=== PATIENT | female | born 1945 | race Caucasian/White ===

== ENCOUNTER 2016-09-01 10:25 | Inpatient (IN) ==
[2016-09-01] MEDS ORDERED: NS 1,000 ML IV ONE (10:43)
[2016-09-01 11:08] LABS: MANUAL DIFF NEEDED? NO
[2016-09-01 11:12] LABS: BASO% 0.1 % (0.0-0.8); EOS# 0.11 X1000 (0.0-0.7); EOS% 1.3 % (0.0-10.0); HEMATOCRIT 31.3 % (37.0-47.0); HEMOGLOBIN 9.5 g/dL (12.0-16.0); IMM GRAN# 0.02 X1000 (0.0-0.04); IMM GRAN% 0.2 % (0.0-0.5); LYMPH# 0.57 X1000 (1.2-3.4); LYMPH% 6.6 % (20.5-51.1); MCH 25.6 PG (27-31); MCHC 30.4 g/dL (33-37); MCV 84.4 FL (81-99); MONO# 0.27 X1000 (0.11-0.59); MONO% 3.1 % (1.7-9.3); MPV 9.1 FL (7.4-10.4); NEUT% 88.7 % (42.2-75.2); PLT 290 X1000 (130-400); RBC 3.71 XMIL (4.2-5.4)
[2016-09-01 11:21] LABS: BE 1.9 mmoll (-3.0-3.0); BLOOD TYPE ARTERIAL; DRAW SITE R RADIAL; METHB 1.1 % (0.0-1.5); O2(CT) 12.2 mL/dL (15.0-23.0); PCO2(98.6) 41 mmHg (35-45); PO2(98.6) 71 mmHg (60-100); SAMPLE BLOOD; SAO2 96.9 % (95.0-100.0); THB 9.2 g/dL (11.5-17.4); pH(98.6) 7.42 (7.35-7.45)
[2016-09-01 11:23] LABS: ALLEN TEST YES; MODALITY CANNULA
--- NOTE | 2016-09-01 11:27 | PROVIDER DOCUMENTATION ---
HPI-General Adult - General Chief Complaint: Weakness Stated Complaint: weakness Time Seen by Provider: 09/01/16 10:34 Source: patient Allergies/Adverse Reactions: Patient Allergies Allergy/AdvReac Type Severity Reaction Status Date / Time Sulfa (Sulfonamide Allergy RASH Verified 09/01/16 10:27 Antibiotics) sulfamethoxazole Allergy RASH Verified 09/01/16 10:27 [From Bactrim] trimethoprim [From Bactrim] Allergy RASH Verified 09/01/16 10:27 Home Medications: Clopidogrel [Plavix] 75 mg PO DAILY 10/10/12 Furosemide [Lasix] 40 mg PO DAILY 10/10/12 Levothyroxine Sodium [Levoxyl] 150 mcg PO DAILY 10/10/12 Alprazolam [Xanax] 0.5 mg PO QHS 01/31/15 BENAZEpril [Lotensin] 40 mg PO HS 03/31/15 Carvedilol [Coreg] 25 mg PO BID 09/30/15 Metformin [Glucophage] 500 mg PO BID CC 09/30/15 Allopurinol 100 mg PO DAILY 09/01/16 Clonidine Patch [[id number]] 1 each TD DIRECTED 09/01/16 Clonidine [Catapres] 0.1 mg PO DAILY PRN 09/01/16 Pantoprazole [Protonix] 40 mg PO DAILY 09/01/16 - History of Present Illness -Gen Adult Nature of Presenting Problems: Reports to er by ems with cc of increasing weakness x 72 hours. EMS reports pt has had shaking chills,fever, for 72 hours. Pt reports left sided chest pain on arrival. Pt reports is being treated for gout. Reports was unable to get out of bed this morning and normally is ambulatory. Denies sob,cough,diarrhea. Location of Pain/Injury: reports: generalized Quality of Pain: reports: none Severity: reports: moderate Onset/Duration: reports: 3 days ago Timing: reports: still present, getting worse Similar Symptoms Previously?: No Recently seen or treated by another doctor?: Yes Review of Systems - Adult - REVIEW OF SYSTEMS - ADULT Constitutional: reports: chills, fever, fatique. denies: night sweats, weight gain, weight loss Eyes: reports: no symptoms reported Ears, Nose, Mouth & Throat: denies: ear pain, sinus problem, throat pain Cardiovascular: reports: chest pain. denies: irregular heart rate, orthopnea, syncope Respiratory: reports: no symptoms reported Gastrointestinal: reports: no symptoms reported Genitourinary: reports: no symptoms reported Musculoskeletal: reports: muscle weakness. denies: frequent leg cramps, joint pain, joint swelling, neck pain Integumentary: reports: no symptoms reported Neurological: reports: no symptoms reported Psychiatric: reports: no symptoms reported Endocrine: reports: no symptoms reported Hematologic/Lymphatic: reports: no symptoms reported Allergic/Immunologic: reports: no symptoms reported All Other Systems: Reviewed and Negative Past History - Adult - PAST MEDICAL HISTORY-ADULT Review of Records: reports: Nursing Assessment Review Major Childhood Illnesses: reports: denies history Cardiovascular: reports: A-Fib, CAD, HTN, [place] Musculoskeletal: reports: arthritis Endocrine/Immune: reports: Diabetes, thyroid disorder - PRIOR SURGERIES/PROCEDURES Surgical/Procedure History: reports: pacemaker, appendectomy, cholecystectomy - IMMUNIZATION STATUS Childhood Immunizations: See Nurse Assessment Flu Vaccine: See Nurse Assessment - SOCIAL HISTORY Smoking: denies Substance Use: none/never Physical Exam-General - PHYSICAL EXAM-ADULT Initial Vital Signs Reviewed: Yes - CONSTITUTIONAL General Appearance: alert, lethargic. negative: appears well (ill appearing) - EYES Eyes: PERRL/EOMI - HEAD, EARS, NOSE, MOUTH & THROAT HENMT: normocephalic/atraumatic, moist mucous membranes, normal ENT inspection, TMs normal, pharynx normal - NECK Neck: non-tender, full range of motion, supple, normal inspection - RESPIRATORY Respiratory: chest non-tender, lungs clear, normal breath sounds, no pleuratic chest pain, no respiratory distress, no accessory muscle use - CARDIOVASCULAR Cardiovascular: normal peripheral pulses, regular rate, rhythm, no edema, no gallop, no JVD, no murmur - GASTROINTESTINAL (ABDOMEN) Abdominal Exam: normal bowel sounds, non tender, soft, no organomegaly, no pulsatile mass, other (healed surgical scars) - MUSCULOSKELETAL Extremity: normal range of motion, non-tender, swelling (bilateral hands moderate swelling) Peripheral Pulses: radial (R): 2+, radial (L): 2+, dorsalis-pedis (R): 2+, dorsalis-pedis (L): 2+ - SKIN Integumentary: normal color, normal turgor, warm - NEUROLOGIC Neurologic: caseworker protective services II-XII nml as tested, grossly normal, no motor/sensory deficits - PSYCHIATRIC Psych/Mental Status: normal mood/affect, normal thought content, normal thought process, oriented x 3 Progress - PLAN OF CARE/RESULTS Progress/Plan/Lab Results: Orders Category Date Time Status Cardiac Monitoring DIRECTED Care 09/01/16 10:44 Active Oxygen Therapy- ED Nursing DIRECTED Care 09/01/16 10:44 Active Saline Loc NOW Care 09/01/16 10:44 Active CHEST-PORTABLE [RAD] Stat Exams 09/01/16 10:43 Taken ABG [RESP] Routine Lab 09/01/16 11:07 Completed BLOOD CULTURE [BLDCUL] Stat Lab 09/01/16 10:43 Ordered CBC WITH ELECTRONIC DIFF [HEME] Stat Lab 09/01/16 10:55 Completed CK PROFILE [SP CHEM] Stat Lab 09/01/16 10:55 Received COMPREHENSIVE METABOLIC PANEL [CHEM] Stat Lab 09/01/16 10:55 Received MAGNESIUM [CHEM] Stat Lab 09/01/16 10:55 Received PRO B-NATRIURETIC PEPTIDE Stat Lab 09/01/16 10:[address] Received [address]IME WITH INR PL [COAG] Stat Lab 09/01/16 10:[address] [COAG] Stat Lab 09/01/16 10:55 Received TROPONIN T Stat Lab 09/01/16 10:55 Received URIC ACID [CHEM] Stat Lab 09/01/16 10:[address] [URINALYSIS] Stat Lab 09/01/16 10:43 Ordered 0.9% Sodium Chloride Inj [Ns] 1,000 ml Med 09/01/16 10:43 Active IV 999 mls/hr EKG [EKG] Stat Ther 09/01/16 10:44 Ordered Vital Signs - 24 hr 09/01/16 10:36 Pulse Rate 72 Respiratory 23 Rate Blood Pressure 88/48 O2 Sat by Pulse 95 Oximetry Laboratory Tests 09/01/16 09/01/16 09/01/16 10:55 10:55 10:55 WBC RBC Hgb Hct MCV MCH MCHC RDW Std Deviation Plt Count MPV Immature Gran % (Auto) Neut % (Auto) Lymph % (Auto) [place] % (Auto) Eos % (Auto) Baso % (Auto) Immature Gran # (Auto) Neut # (Auto) Lymph # (Auto) [place] # (Auto) Eos # (Auto) Baso # (Auto) PT INR APTT (Factor Assay) Specimen Type Sample Site pH pCO2 pO2 HCO3 Base Excess Oxyhemoglobin ABG O2 Sat (Calculated) ABG O2 Saturation ABG Carboxyhemoglobin ABG Methemoglobin Ilir Test A-a O2 Difference Total Hemoglobin Lactate Liter Flow Blood Gas Modality FiO2 % Sodium 136 Potassium 4.3 Chloride 100 Carbon Dioxide 27 Anion Gap 10 BUN 30 H Creatinine 1.5 H Estimated GFR/1.73 m2 34 BUN/Creatinine Ratio 20 Glucose 147 H Calculated Osmolality 281 Uric Acid Calcium 8.5 L Magnesium 2.0 Total Bilirubin 0.30 AST 20 ALT 12 Alkaline Phosphatase 61 Creatine Kinase 239 H Creatine Kinase Index 1.0 CK-MB (CK-2) 2.39 Troponin T < 0.010 Cvp-[id number]-Bqccbbnchya Pept 2607 H Total Protein 6.1 L Albumin 3.3 L Globulin 3.0 Albumin/Globulin Ratio 1.0 Urine Source Urine Color Urine Clarity Urine pH Ur Specific [place] Urine Protein Urine Ketones Urine Blood Urine Nitrite Urine Bilirubin Urine Urobilinogen Urine Microscopic RBC Urine WBC Urine Microscopic WBC Ur Epithelial Cells Urine Bacteria Urine Glucose 09/01/16 09/01/16 09/01/16 10:55 10:55 10:55 WBC 8.64 RBC 3.71 L Hgb 9.5 L Hct 31.3 L MCV 84.4 MCH 25.6 L MCHC 30.4 L RDW Std Deviation 14.9 H Plt Count 290 MPV 9.1 Immature Gran % (Auto) 0.2 Neut % (Auto) 88.7 H Lymph % (Auto) 6.6 L [place] % (Auto) 3.1 Eos % (Auto) 1.3 Baso % (Auto) 0.1 Immature Gran # (Auto) 0.02 Neut # (Auto) 7.66 H Lymph # (Auto) 0.57 L [place] # (Auto) 0.27 Eos # (Auto) 0.11 Baso # (Auto) 0.01 PT 16.9 H INR 1.35 H APTT (Factor Assay) 40.7 Specimen Type Sample Site pH pCO2 pO2 HCO3 Base Excess Oxyhemoglobin ABG O2 Sat (Calculated) ABG O2 Saturation ABG Carboxyhemoglobin ABG Methemoglobin Ilir Test A-a O2 Difference Total Hemoglobin Lactate Liter Flow Blood Gas Modality FiO2 % Sodium Potassium Chloride Carbon Dioxide Anion Gap BUN Creatinine Estimated GFR/1.73 m2 BUN/Creatinine Ratio Glucose Calculated Osmolality Uric Acid 5.6 Calcium Magnesium Total Bilirubin AST ALT Alkaline Phosphatase Creatine Kinase Creatine Kinase Index CK-MB (CK-2) Troponin T Csp-V-Swkmyuoruwz Pept Total Protein Albumin Globulin Albumin/Globulin Ratio Urine Source Urine Color Urine Clarity Urine pH Ur Specific [place] Urine Protein Urine Ketones Urine Blood Urine Nitrite Urine Bilirubin Urine Urobilinogen Urine Microscopic RBC Urine WBC Urine Microscopic WBC Ur Epithelial Cells Urine Bacteria Urine Glucose 09/01/16 09/01/16 11:07 12:26 WBC RBC Hgb Hct MCV MCH MCHC RDW Std Deviation Plt Count MPV Immature Gran % (Auto) Neut % (Auto) Lymph % (Auto) [place] % (Auto) Eos % (Auto) Baso % (Auto) Immature Gran # (Auto) Neut # (Auto) Lymph # (Auto) [place] # (Auto) Eos # (Auto) Baso # (Auto) PT INR APTT (Factor Assay) Specimen Type ARTERIAL Sample Site R RADIAL pH 7.42 pCO2 41 pO2 71 HCO3 26.4 H Base Excess 1.9 Oxyhemoglobin 93.5 L ABG O2 Sat (Calculated) 12.2 L ABG O2 Saturation 96.9 ABG Carboxyhemoglobin 2.40 ABG Methemoglobin 1.1 Ilir Test YES A-a O2 Difference 77.0 Total Hemoglobin 9.2 L Lactate 1.80 Liter Flow 2.0 Blood Gas Modality CAN[place]ULA FiO2 % 28.0 Sodium Potassium Chloride Carbon Dioxide Anion Gap BUN Creatinine Estimated GFR/1.73 m2 BUN/Creatinine Ratio Glucose Calculated Osmolality Uric Acid Calcium Magnesium Total Bilirubin AST ALT Alkaline Phosphatase Creatine Kinase Creatine Kinase Index CK-MB (CK-2) Troponin T [id number]-[id number]-Tcelmpdkfls Pept Total Protein Albumin Globulin Albumin/Globulin Ratio Urine Source CATH Urine Color YELLOW Urine Clarity SL. CLOUDY A Urine pH 7.0 Ur Specific [place] 1.000 Urine Protein TRACE A Urine Ketones NEGATIVE Urine Blood 2+ A Urine Nitrite NEGATIVE Urine Bilirubin NEGATIVE Urine Urobilinogen 1+(1 mg/dL) Urine Microscopic RBC <10 Urine WBC 1+ A Urine Microscopic WBC <10 Ur Epithelial Cells <10 Urine Bacteria 4+ Urine Glucose NEGATIVE - EKG 1 Time of EKG reading by physician:: 11:06 EKG Read and Signed by:: Debora Khan EKG Interpretation (*Must complete 3 of following elements*): Abnormal (per v5/v6 T wave inversions are new compared to old EKG) Rate: 70 Rhythm: atrial paced rhtym with prolonged AV [place]: left QRS: RBB - CONSULTS/PCP/HOSPITALIST Notification #1 *Consult/PCP/Hospitalist*: Time Discussed: 12:55 Consult Disposition: Admit Departure - Departure Time of Disposition Order: 12:55 DIAGNOSIS: Weakness CHF exacerbation Qualifiers: Congestive heart failure type: unspecified congestive heart failure type Qualified Code(s): I50.9 - Heart failure, unspecified Disposition: ADMITTED INPATIENT 09 Certified Medical Emergency: Emergent Condition: Stable Attestation - Scribe Verification/Attestation Scribe:: Anita Winn Acting as Scribe for:: Debora Khan Scribe documention review:: This chart was documented by a scribe and accurately reflects the service the provider performed and the decisions made by the provider.
[2016-09-01 11:29] LABS: ALBUMIN 3.3 g/dL (3.5-5.0); CALCIUM 8.5 mg/dL (8.8-10.2); POTASSIUM 4.3 mmol/L (3.5-5.1); TOTAL BILIRUBIN 0.3 mg/dL (0.20-1.00); TOTAL PROTEIN 6.1 g/dL (6.3-8.3)
[2016-09-01 11:30] LABS: INR 1.35 (0.86-1.15); PROTIME 16.9 Seconds (12.1-15.5)
[2016-09-01 11:31] LABS: PTT PL 40.7 Seconds (22.6-43.9)
--- NOTE | 2016-09-01 11:34 | Diag Imaging Result Document ---
PROCEDURE NAME: CHEST-PORTABLE - 09/01/2016 SINGLE FRONTAL RADIOGRAPH OF THE CHEST: COMPARISON: 03/18/2015. FINDINGS: Inspiration is slightly suboptimal. The lungs are grossly clear. There is no definite pleural fluid collection. There is a stable left-sided pacemaker. Cardiac silhouette and central vasculature are grossly unremarkable. IMPRESSION: No evidence of acute pathology.
--- NOTE | 2016-09-01 11:34 | EKG Report ---
Test Performed on : 09/01/2016 11:06:28 AM Test Reason : CHEST PAIN Blood Pressure : / mmHG Vent. Rate : 070 BPM Atrial Rate : 070 BPM P-R Int : 258 ms QRS Dur : 152 ms QT Int : 398 ms P-R-T Axes : 000 -43 -38 degrees QTc Int : 429 ms Atrial-paced rhythm with prolonged AV conduction Left axis deviation Right bundle branch block T wave abnormality, consider inferolateral ischemia Abnormal ECG When compared with ECG of 31-JAN-2015 14:07, Electronic atrial pacemaker has replaced Sinus rhythm. Inverted T waves have replaced nonspecific T wave abnormality in Lateral leads Unconfirmed Result
[2016-09-01] MEDS ORDERED: LASIX IV ONE (12:08)
[2016-09-01 12:14] LABS: CK-MB 2.39 ng/mL (0.0-5.0)
[2016-09-01 12:35] LABS: URINE SOURCE CATH
[2016-09-01 12:48] LABS: BILIRUBIN URINE NEGATIVE (NEGATIVE); BLOOD URINE 2+ (NEGATIVE); CLARITY SL. CLOUDY (CLEAR); COLOR YELLOW; GLUCOSE URINE NEGATIVE (NEGATIVE); LEUKOCYTES URINE 1+ (NEGATIVE); NITRITE URINE NEGATIVE (NEGATIVE); PROTEIN URINE TRACE mg/dL (NEGATIVE); URINE MICROSCOPIC NEEDED? YES; UROBILINOGEN URINE 1+(1 mg/dL)
[2016-09-01 12:49] LABS: URINE EPITHELIAL CELLS <10 /HPF (<10); URINE RBC <10 /HPF (<10); URINE WBC <10 /HPF (<10)
[2016-09-01] MEDS ORDERED: ROCEPHIN 1 GM/NS 50 ML IV ONE (13:13)
[2016-09-01] MEDS ORDERED: ZOFRAN IV PRN (20:50)
[2016-09-01] MEDS ORDERED: CATAPRES-TTS-2 TD SCH (21:00)
[2016-09-01] MEDS: LOTENSIN PO SCH (21:51)
[2016-09-01] MEDS: COREG PO SCH (21:51)
[2016-09-01] MEDS: SOLU-MEDROL IV SCH (21:57)
[2016-09-01] MEDS: LASIX IV SCH (21:57)
[2016-09-01] MEDS: TYLENOL PO PRN (21:57)
[2016-09-01] MEDS: XANAX PO SCH (21:57)
[2016-09-02] MEDS: SOLU-MEDROL IV SCH ×3 (05:14→23:12)
[2016-09-02 06:10] LABS: HEMATOCRIT 30.8 % (37.0-47.0); HEMOGLOBIN 9.1 g/dL (12.0-16.0); MCH 24.9 PG (27-31); MCHC 29.5 g/dL (33-37); MCV 84.2 FL (81-99); MPV 9.4 FL (7.4-10.4); RBC 3.66 XMIL (4.2-5.4)
[2016-09-02 06:52] LABS: CALCIUM 8.5 mg/dL (8.8-10.2); MAGNESIUM 1.9 mg/dL (1.5-2.7); TOTAL BILIRUBIN 0.3 mg/dL (0.20-1.00); TOTAL PROTEIN 5.8 g/dL (6.3-8.3)
[2016-09-02] MEDS: SYNTHROID PO SCH (07:42)
[2016-09-02] MEDS: PROTONIX PO SCH (07:44)
[2016-09-02] MEDS: GLUCOPHAGE PO SCH ×2 (07:47→16:54)
[2016-09-02] MEDS ORDERED: CATAPRES-TTS-2 TD SCH (09:00)
[2016-09-02] MEDS ORDERED: LASIX PO SCH (09:00)
[2016-09-02] MEDS: PLAVIX PO SCH (10:24)
[2016-09-02] MEDS: COREG PO SCH ×2 (10:24→20:36)
[2016-09-02] MEDS: ZYLOPRIM PO SCH (10:25)
[2016-09-02] MEDS: LASIX IV SCH ×2 (10:25→20:37)
--- NOTE | 2016-09-02 10:26 | PROGRESS NOTE ---
DATE: 09/02/2016 SUBJECTIVE: Patient states she feels a tiny bit better this morning. She is having a little bit less swelling in her bilateral hands and feet. She is having a little bit less pain in her hands. The [address] seemed to help. Denies any chest pain, palpitations. Denies any fevers or chills. PHYSICAL: Vital Signs: Temperature 97.9, pulse 60, respiratory rate 18, BP 153/62. General: Patient is a well-developed, well-nourished, obese female who is in no respiratory distress. She is pleasant to talk with. Awake, alert, oriented. Neck: Supple. CV: Regular rate. Chest: Clear. Nonlabored. Abdomen: Soft, nondistended. Extremities: Moves all extremities. Neurologic: No focal changes. Skin: Warm and dry, no rashes. She is noted to have swelling of bilateral hands with redness over her joints. This is actually improved from last night's exam. Her edema in her bilateral lower extremities has also improved from last night's exam. LABORATORY DATA: CBC normal. CMP improving with a creatinine at 1.3. ASSESSMENT: 1. Gout with acute flare. Will continue Solu-Medrol as it is improving her gout flare. 2. Diabetes, certainly concerned with Solu-Medrol and her blood sugar. Therefore, we will continue sliding scale insulin. Continue her home medications. 3. Acute on chronic renal failure. Serum creatinine has improved. Continue IV fluids. Continue to check in the morning. 4. Hypertension. Will continue benazepril. 5. Chronic anxiety. 6. Others.
[2016-09-02] MEDS: HUMALOG DOSE (PARKWAY) SUBQ SCH ×3 (11:37→20:37)
[2016-09-02] MEDS: TYLENOL PO PRN ×2 (15:15→20:37)
[2016-09-02] MEDS: LOTENSIN PO SCH (20:36)
[2016-09-02] MEDS: XANAX PO SCH (20:38)
[2016-09-03] MEDS: SOLU-MEDROL IV SCH ×2 (05:13→19:15)
[2016-09-03] MEDS: NORCO-5 PO PRN ×2 (05:26→21:18)
[2016-09-03 06:07] LABS: HEMATOCRIT 30.6 % (37.0-47.0); HEMOGLOBIN 9.2 g/dL (12.0-16.0); MCH 24.8 PG (27-31); MCHC 30.1 g/dL (33-37); MCV 82.5 FL (81-99); MPV 9.5 FL (7.4-10.4); RBC 3.71 XMIL (4.2-5.4)
[2016-09-03 06:23] LABS: ALBUMIN 2.9 g/dL (3.5-5.0); CALCIUM 8.7 mg/dL (8.8-10.2); MAGNESIUM 1.9 mg/dL (1.5-2.7); POTASSIUM 4.1 mmol/L (3.5-5.1); TOTAL BILIRUBIN 0.2 mg/dL (0.20-1.00); TOTAL PROTEIN 5.8 g/dL (6.3-8.3)
[2016-09-03] MEDS: SYNTHROID PO SCH (06:50)
[2016-09-03] MEDS: HUMALOG DOSE (PARKWAY) SUBQ SCH ×4 (06:50→21:18)
[2016-09-03] MEDS: PROTONIX PO SCH (06:50)
[2016-09-03] MEDS: PLAVIX PO SCH (08:59)
[2016-09-03] MEDS: COREG PO SCH ×2 (08:59→21:18)
[2016-09-03] MEDS: LASIX PO SCH (08:59)
[2016-09-03] MEDS: ZYLOPRIM PO SCH (08:59)
[2016-09-03] MEDS: GLUCOPHAGE PO SCH ×2 (08:59→19:15)
--- NOTE | 2016-09-03 09:38 | PROGRESS NOTE ---
DATE: 09/03/2016 SUBJECTIVE: Patient states she feels a little bit better. She is actually trying to eat breakfast. Has not been out of bed. Still having swelling in her hands and feet. Denies any chest pain, palpitations. Denies any fevers, chills. Denies any urinary issues. PHYSICAL: Vital Signs: Temperature 97, pulse 64, respiratory 18, BP 142/59, 183/76. General: Patient is well developed, well nourished. She is currently in no respiratory distress. She is awake, alert. Neck: Supple. CV: Regular rate. Chest: Clear. Abdomen: Soft. Extremities: Moves all extremities. Neurologic: No changes. ASSESSMENT: 1. Hypertension. Patient currently is on benazepril and Coreg. Will add Norvasc. 2. Insomnia. Discussed with patient that hopefully as the steroids decrease, she will be able to sleep better. 3. Rheumatoid arthritis. Continues to be problematic. 4. Gouty arthritis. Patient's bilateral hands are actually much less red, much less swollen. We will decrease her steroids. 5. Hypothyroidism. 6. Chronic anxiety. 7. Diabetes. Blood sugars are currently stable, despite the steroids. Will continue sliding scale.
[2016-09-03] MEDS: NORVASC PO SCH (11:33)
[2016-09-03] MEDS: MIRALAX PO SCH (11:33)
[2016-09-03] MEDS: XANAX PO SCH (21:18)
[2016-09-03] MEDS: LOTENSIN PO SCH (21:18)
[2016-09-04] MEDS: SOLU-MEDROL IV SCH (06:02)
[2016-09-04] MEDS: SYNTHROID PO SCH (06:02)
[2016-09-04] MEDS: PROTONIX PO SCH (06:02)
[2016-09-04] MEDS: NORCO-5 PO PRN ×2 (06:02→21:09)
[2016-09-04] MEDS: HUMALOG DOSE (PARKWAY) SUBQ SCH ×4 (06:03→21:10)
[2016-09-04 08:41] LABS: URINE SOURCE CATH
[2016-09-04 08:53] LABS: BILIRUBIN URINE NEGATIVE (NEGATIVE); BLOOD URINE NEGATIVE (NEGATIVE); CLARITY SL. CLOUDY (CLEAR); COLOR YELLOW; GLUCOSE URINE NEGATIVE (NEGATIVE); LEUKOCYTES URINE TRACE (NEGATIVE); NITRITE URINE NEGATIVE (NEGATIVE); PROTEIN URINE TRACE mg/dL (NEGATIVE); SP GRAVITY URINE 1.015; UROBILINOGEN URINE NORMAL
[2016-09-04 08:54] LABS: URINE CULTURE PL NEEDED? YES; URINE EPITHELIAL CELLS <10 /HPF (<10); URINE RBC <10 /HPF (<10)
[2016-09-04] MEDS: MIRALAX PO SCH (09:20)
[2016-09-04] MEDS: ZYLOPRIM PO SCH (09:21)
[2016-09-04] MEDS: COREG PO SCH ×2 (09:21→21:09)
[2016-09-04] MEDS: PLAVIX PO SCH (09:21)
[2016-09-04] MEDS: NORVASC PO SCH (09:21)
[2016-09-04] MEDS: GLUCOPHAGE PO SCH ×2 (09:21→17:17)
[2016-09-04] MEDS: LASIX PO SCH (09:21)
[2016-09-04] MEDS ORDERED: ZYLOPRIM PO ONE (10:45)
--- NOTE | 2016-09-04 16:00 | PROGRESS NOTE ---
DATE: 09/04/2016 SUBJECTIVE: The patient is somewhat confused this morning. She denies any chest pain or palpitations. States she is still short of breath, tired, fatigued, and having difficulty getting out of bed. Denies any other GI or issues. PHYSICAL EXAMINATION: Vital signs: Temperature, she is afebrile. Vital signs stable. Heart rate is 80, respiratory 20. General: The patient is well developed and well nourished. She is currently in no respiratory distress. She is awake and alert. Speech is somewhat confused as corroborated by her . HEENT: Normocephalic. Neck: Supple. CV: Regular rate. Chest: Relatively clear. Abdomen: Soft. Extremities: Moves all extremities. Skin: Her bilateral upper, swelling, erythema, and redness have all but completely disappeared. She is left with her chronic joint deformity. She has trace edema in her bilateral lower extremities. LABS: Reviewed. ASSESSMENT: 1. Congestive heart failure with exacerbation. Currently stable. Will continue her on IV Lasix today. We will change her over to p.o. Lasix in the morning. 2. Diabetes. Blood sugars are stable. 3. Arthritis, stable. 4. Hypertension. Blood pressures have begun returning back to her normal. Therefore, will restart her home medications. PLAN: Continue instructor physical. Patient most likely will need rehab prior to going home. Her is in agreement. 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
--- NOTE | 2016-09-04 16:25 | HISTORY AND PHYSICAL ---
CHIEF COMPLAINT: Shortness of breath and swelling. HISTORY OF PRESENT ILLNESS: Patient is a 70-year-old female, who unfortunately has a known history of congestive heart failure. She was just recently seen in the office with swelling in her bilateral hands that was felt to be secondary to her gouty arthritis as well as rheumatoid arthritis. She had marked erythema of her right hand and was placed on steroids. She was told should symptoms worsen to come to the ER which she did. ALLERGIES: Sulfa causing a rash. MEDICATIONS: Plavix 75, Lasix 40, Synthroid 150, Xanax 0.5 at bedtime p.r.n., Lotensin 40, Coreg 25 b.i.d., Glucophage 500 b.i.d., allopurinol 100 once a day. Catapres TTS 2 patch every 3 days. Protonix 40. PAST MEDICAL AND SURGICAL HISTORY: Gout with significant arthritis, rheumatoid arthritis, known coronary artery disease. Chronic anxiety. Hypertension. Diabetes. Chronic reflux. History of atrial fibrillation. History of coronary artery disease with an LA. Hypothyroidism. She has had a pacemaker placement. Appendectomy and cholecystectomy in the past. REVIEW OF SYSTEMS: As noted above. She denies any fevers, chills. Does state she has swelling in her bilateral lower extremities that started after she started steroids. She notes some swelling and shortness of breath. Denies any fevers or chills. Denies any dysuria, frequency. Denies hesitancy, polyuria, polydipsia. Denies any skin rashes, weight loss, or weight gain. Denies any chest pain, palpitations. Denies any fevers or chills. Denies any dysuria or frequency. FAMILY HISTORY: Noncontributory. SOCIAL HISTORY: Patient is . Lives at home. Does not smoke or drink. PHYSICAL EXAMINATION: VITAL SIGNS: Temperature, she is afebrile. Pulse 72, respiratory rate 23, BP 88/48 currently. GENERAL: Patient is well developed, obese female who is currently in mild respiratory distress. She is awake, alert, and oriented. NECK: Supple. CV: Regular rate. CHEST: Clear. Nonlabored. ABDOMEN: Soft, nondistended. EXTREMITIES: Moves all extremities. NEUROLOGIC: There are no changes. SKIN: She is noted to have marked swelling of her bilateral hands. They are puffy and warm to the touch. Erythematous. She has 1+ edema in her bilateral lower extremities. LABORATORY DATA: CMP essentially normal with glucose of 147. Troponin less than 0.01. BNP 2607. INR 1.35. ASSESSMENT: 1. Congestive heart failure with mild exacerbation. 2. Rheumatoid arthritis with expected exacerbation given her bilateral hand swelling. Patient's uric acid is actually 5.6. I doubt that gout is the current contributing factor. 3. Gouty arthritis. 4. Diabetes . 5. Hypertension. Patient's blood pressure currently is actually low. Therefore, we will hold her blood pressure medications. PLAN: As noted above. We will place her on steroids and IV Lasix. Hold her blood pressure medication currently. We will continue to follow. Continue her thyroid and her blood sugar medications. We will place her on sliding scale insulin. Further orders as needed.
[2016-09-04] MEDS: LOTENSIN PO SCH (21:09)
[2016-09-04] MEDS: XANAX PO SCH (21:09)
[2016-09-05] MEDS: PROTONIX PO SCH ×2 (05:44→06:12)
[2016-09-05] MEDS: SYNTHROID PO SCH ×2 (05:44→09:50)
[2016-09-05] MEDS ORDERED: SOLU-MEDROL IV SCH (06:00)
[2016-09-05] MEDS: HUMALOG DOSE (PARKWAY) SUBQ SCH ×3 (06:12→16:55)
[2016-09-05] MEDS: LASIX PO SCH (09:51)
[2016-09-05] MEDS: GLUCOPHAGE PO SCH ×2 (09:51→16:56)
[2016-09-05] MEDS: COREG PO SCH ×2 (09:51→22:07)
[2016-09-05] MEDS: PLAVIX PO SCH (09:52)
[2016-09-05] MEDS: NORVASC PO SCH (09:52)
[2016-09-05] MEDS: LEVAQUIN PO SCH (09:52)
[2016-09-05] MEDS: MIRALAX PO SCH (09:52)
[2016-09-05] MEDS: ZYLOPRIM PO SCH (09:52)
[2016-09-05] MEDS: LOTENSIN PO SCH (22:08)
[2016-09-05] MEDS: XANAX PO SCH (22:08)
[2016-09-06] MEDS: SYNTHROID PO SCH (06:28)
[2016-09-06] MEDS: PROTONIX PO SCH (06:28)
--- NOTE | 2016-09-06 08:21 | PROGRESS NOTE ---
DATE: 09/05/2016 SUBJECTIVE: Patient is somewhat confused this morning, but does orient at times. Denies any chest pain, palpitations. States she is pretty tired, fatigued. She is not getting out of bed. Notes the pain and swelling in her hands and her feet have both improved. PHYSICAL: Vital Signs: Temperature 97.2, pulse 60, respiratory rate 16, BP 175/76. General: Patient well developed, well nourished. Obese female who is currently in no respiratory distress. She is awake, alert. Neck: Supple. CV: Regular rate. Chest: Relatively clear. Abdomen: Soft nondistended. Extremities: Moves all extremities. LABS: Pending. ASSESSMENT: 1. Arthritis, rheumatoid and gout, both improved with steroids. 2. Diabetes, stable. 3. Hypertension, stable. 4. Adult failure to thrive. Patient continues to have difficulty getting out of bed. We will continue physical therapy. 5. Urinary tract infection with gram-negative rods. Sensitivity pending. PLAN: Hopefully will obtain sensitivities today and will be able to discharge to rehab. If not, will need to wait until we have a clear idea on her current infection. We will continue to follow.
[2016-09-06 08:27] LABS: HEMATOCRIT 31.8 % (37.0-47.0); HEMOGLOBIN 9.7 g/dL (12.0-16.0); MCH 25.2 PG (27-31); MCHC 30.5 g/dL (33-37); MCV 82.6 FL (81-99); MPV 9.2 FL (7.4-10.4); RBC 3.85 XMIL (4.2-5.4)
[2016-09-06 08:43] LABS: ALBUMIN 2.9 g/dL (3.5-5.0); CALCIUM 8.8 mg/dL (8.8-10.2); MAGNESIUM 1.8 mg/dL (1.5-2.7); POTASSIUM 4.5 mmol/L (3.5-5.1); TOTAL BILIRUBIN 0.3 mg/dL (0.20-1.00); TOTAL PROTEIN 5.9 g/dL (6.3-8.3)
--- NOTE | 2016-09-06 09:54 | DISCHARGE SUMMARY ---
ADMISSION DATE: 09/01/2016 DISCHARGE DATE: 09/06/2016 DISCHARGE DIAGNOSES: 1. Escherichia coli urinary tract infection. Highly sensitive to Levaquin. 2. Diabetes with mild hyperglycemia, stable. 3. Mild protein calorie malnutrition. 4. Acute metabolic encephalopathy secondary to her urinary tract infection. 5. Congestive heart failure with exacerbation, systolic, improved. 6. Gouty arthritis. 7. Bilateral hands swelling, erythematous, improved. CONSULTATIONS: None. PROCEDURE: None. BRIEF HOSPITAL COURSE: Patient is a 70-year-old female who was admitted as noted on the HPI, treated in usual fashion. Hopefully, she will be transferred to rehab fashion. She was placed on Lasix and IV Solu-Medrol secondary to her marked swelling, erythema and edema of her bilateral hands. This continued to improve. Lasix helped her lower extremity edema. Unfortunately she continued to have moderate difficulty attempting to get out of bed. Physical therapy was consulted. This was not able to improve her physical status during the hospital stay. She also grew E. coli in her urine that was highly sensitive to Levaquin. DISPOSITION: Patient will be discharged to rehab. She will continue Levaquin as well as her other home medications.
[2016-09-06] MEDS: HUMALOG DOSE (PARKWAY) SUBQ SCH ×4 (10:55→22:42)
[2016-09-06] MEDS: GLUCOPHAGE PO SCH ×2 (10:55→16:57)
[2016-09-06] MEDS: ZYLOPRIM PO SCH (10:56)
[2016-09-06] MEDS: LASIX PO SCH (10:56)
[2016-09-06] MEDS: COREG PO SCH ×2 (10:56→21:17)
[2016-09-06] MEDS: LEVAQUIN PO SCH (10:56)
[2016-09-06] MEDS: NORVASC PO SCH (10:56)
[2016-09-06] MEDS: PLAVIX PO SCH (10:56)
[2016-09-06] MEDS: MIRALAX PO SCH (10:56)
[2016-09-06] MEDS: PREDNISONE PO SCH (10:57)
[2016-09-06] MEDS: XANAX PO SCH (21:17)
[2016-09-06] MEDS: LOTENSIN PO SCH (21:17)
[2016-09-07] MEDS: PROTONIX PO SCH (06:16)
[2016-09-07] MEDS: SYNTHROID PO SCH (06:16)
[2016-09-07] MEDS: HUMALOG DOSE (PARKWAY) SUBQ SCH ×4 (07:01→20:59)
[2016-09-07] MEDS: MIRALAX PO SCH (09:06)
[2016-09-07] MEDS: GLUCOPHAGE PO SCH ×2 (09:07→16:15)
[2016-09-07] MEDS: LEVAQUIN PO SCH (09:08)
[2016-09-07] MEDS: COREG PO SCH ×2 (09:09→20:54)
[2016-09-07] MEDS: ZYLOPRIM PO SCH (09:09)
[2016-09-07] MEDS: LASIX PO SCH (09:09)
[2016-09-07] MEDS: NORVASC PO SCH (09:09)
[2016-09-07] MEDS: PREDNISONE PO SCH (09:09)
[2016-09-07] MEDS: PLAVIX PO SCH (09:10)
[2016-09-07] MEDS: NORCO-5 PO PRN ×2 (11:07→20:54)
--- NOTE | 2016-09-07 16:19 | PROGRESS NOTE ---
DATE: 09/07/2016 SUBJECTIVE: The patient is confused at times. She does orient to person and date of and family members. She denies any chest pain or palpitations. OBJECTIVE: Vital Signs: Blood pressure is 185/82 with a heart rate of 68, respirations are 18, temperature is 98.1 degrees oral with oxygen saturations of 98% on 2 L nasal cannula. Cardiovascular: Regular rate and rhythm. S1 and S2 appreciated. Pulmonary: Breath sounds are clear with no increased work of breathing noted. Gastrointestinal: Abdomen is soft, nondistended, nontender with bowel sounds in all 4 quadrants. Extremities: No clubbing or cyanosis. She does have some swelling in her hands and feet, although this has improved greatly. DIAGNOSTICS: Blood sugars are ranging 150s to 170s. ASSESSMENT: 1. Arthritis, rheumatoid and gout, both improved with steroids. 2. Diabetes, stable. 3. Hypertension, stable. 4. Adult failure to thrive. She continues to have difficulty getting out of bed. Physical therapy is working with her. 5. Urinary tract infection, Escherichia coli, which is Levaquin susceptible. We will continue with Levaquin. 6. Disposition: The patient does have a rehabilitation bed. We are waiting on insurance approval. Dictated by NIMISHA Yu for Shashank Padilla MD
[2016-09-07] MEDS: LOTENSIN PO SCH (20:53)
[2016-09-07] MEDS: XANAX PO SCH (20:54)
[2016-09-08] MEDS: PROTONIX PO SCH (06:08)
[2016-09-08] MEDS: SYNTHROID PO SCH (06:11)
[2016-09-08] MEDS: HUMALOG DOSE (PARKWAY) SUBQ SCH ×2 (06:11→13:48)
[2016-09-08] MEDS: ZYLOPRIM PO SCH (08:05)
[2016-09-08] MEDS: PLAVIX PO SCH (08:05)
[2016-09-08] MEDS: COREG PO SCH (08:05)
[2016-09-08] MEDS: LEVAQUIN PO SCH (08:05)
[2016-09-08] MEDS: NORVASC PO SCH (08:05)
[2016-09-08] MEDS: MIRALAX PO SCH (08:06)
[2016-09-08] MEDS: GLUCOPHAGE PO SCH (08:06)
[2016-09-08] MEDS: LASIX PO SCH (08:06)
[2016-09-08] MEDS: PREDNISONE PO SCH (08:06)
[2016-09-08] MEDS: NORCO-5 PO PRN (10:05)
[2016-09-08] MEDS ORDERED: BLISTEX MEDICATED BERRY LIP BALM TOP ONE (13:40)
[2016-09-08 16:26] VITALS: BP 118/61
[2016-09-08] MEDS ORDERED: ZOFRAN ODT SL PRN (16:35)
--- NOTE | 2016-09-09 05:27 | DISCHARGE SUMMARY ---
ADMISSION DATE: 09/01/2016 DISCHARGE DATE: 09/08/2016 DISCHARGE DIAGNOSES: 1. Congestive heart failure, systolic, with mild exacerbation. Stable. On PO Lasix. 2. Diabetes type 2. Stable. Blood sugars are elevated secondary to her steroids. 3. 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 Improved after high-dose steroids. 4. Acute adult failure to thrive. She is fatigued and unable to get out of bed on her own. 5. Hypertension. 6. Obesity. 7. Escherichia coli urinary tract infection sensitive to Levaquin. Certainly contributing to some of her factors. CONSULTATIONS: None. PROCEDURES: None. BRIEF HOSPITAL COURSE: The patient is a 70-year-old female who is admitted as noted on the HPI secondary to adult failure to thrive. She was fatigued, weak, and unable to get out of bed. She was subsequently noted to have a urinary tract infection and was placed on antibiotics. Thankfully, she had an uneventful hospital course. On discharge, she is awake, alert. She is having situational confusion, but is easily reoriented with getting up and moving around. DISPOSITION: The patient will be discharged to rehab. She will continue in rehab for the next 7 days on Levaquin. After which time, the Levaquin should be able to wean off. Hopefully, her situational metabolic encephalopathy will completely resolve back to her baseline. She will continue her home medications as listed.
== END 2016-09-08 17:29 | DRG 291 ==
LOC: P.ED 10:25 → P.MEDSURG 13:13 → OBSVTOIN 13:13
PROVIDERS: ADMIT Family Medicine; ATTEND Family Medicine
DX: I13.0 Hypertensive heart and chronic kidney disease with heart failure and stage 1 through stage 4 chronic kidney disease, or unspecified chronic kidney disease (principal); G93.41 Metabolic encephalopathy; E11.65 Type 2 diabetes mellitus with hyperglycemia; E11.22 Type 2 diabetes mellitus with diabetic chronic kidney disease; I50.23 Acute on chronic systolic (congestive) heart failure; N39.0 Urinary tract infection, site not specified; E44.1 Mild protein-calorie malnutrition; I48.91 Unspecified atrial fibrillation; B96.20 Unspecified Escherichia coli [E. coli] as the cause of diseases classified elsewhere; R62.7 Adult failure to thrive; M06.9 Rheumatoid arthritis, unspecified; M10.9 Gout, unspecified; E66.9 Obesity, unspecified; I25.10 Atherosclerotic heart disease of native coronary artery without angina pectoris; F41.9 Anxiety disorder, unspecified; K21.9 Gastro-esophageal reflux disease without esophagitis; E03.9 Hypothyroidism, unspecified; T38.0X5A Adverse effect of glucocorticoids and synthetic analogues, initial encounter; N18.9 Chronic kidney disease, unspecified; G47.00 Insomnia, unspecified; Z68.37 Body mass index [BMI] 37.0-37.9, adult; Z79.84 Long term (current) use of oral hypoglycemic drugs; Z79.02 Long term (current) use of antithrombotics/antiplatelets; Z79.899 Other long term (current) drug therapy; I25.2 Old myocardial infarction; Z95.0 Presence of cardiac pacemaker
CPT/HCPCS: 36415; 51702; 71010; 80053; 81001; 82550; 82553; 82805; 82948; 83735; 83880; 84443; 84484; 84550; 85025; 85027; 85610; 85730; 87040; 87077; 87088; 87186; 93005; 94761; 96361; 96365; 96375; J0696; J1815; J1940; J2920; J2930; J7030; J7512; 97110-GP; 97530-GP

== ENCOUNTER 2017-05-31 00:40 | Inpatient (IN) ==
--- NOTE | 2017-05-29 15:00 | EKG Report ---
Test Performed on : 05/29/2017 2:35:25 PM Test Reason : PAT Blood Pressure : / mmHG Vent. Rate : 064 BPM Atrial Rate : 064 BPM P-R Int : 264 ms QRS Dur : 158 ms QT Int : 446 ms P-R-T Axes : 042 -42 -27 degrees QTc Int : 460 ms Atrial-paced rhythm with prolonged AV conduction Left axis deviation Right bundle branch block T wave abnormality, consider lateral ischemia Abnormal ECG When compared with ECG of 29-MAY-2017 14:34, (Unconfirmed) Previous ECG has undetermined rhythm, needs review Confirmed by Irineo RUELAS, Ilir An ([id number]) on 05/29/2017 5:01:58 PM
[2017-05-29 15:05] LABS: MANUAL DIFF NEEDED? NO; URINE MICRO REVIEW NEEDED? NO; URINE SOURCE CLEAN CATCH
[2017-05-29 15:12] LABS: BASO% 0.7 % (0.0-0.8); EOS# 0.17 X1000 (0.0-0.7); EOS% 2.1 % (0.0-10.0); HEMATOCRIT 35.7 % (37.0-47.0); HEMOGLOBIN 10.9 g/dL (12.0-16.0); IMM GRAN# 0.02 X1000 (0.0-0.04); IMM GRAN% 0.2 % (0.0-0.5); LYMPH# 1.53 X1000 (1.2-3.4); LYMPH% 18.5 % (20.5-51.1); MCH 24.8 PG (27-31); MCHC 30.5 g/dL (33-37); MCV 81.3 FL (81-99); MONO# 0.81 X1000 (0.11-0.59); MONO% 9.8 % (1.7-9.3); MPV 8.9 FL (7.4-10.4); NEUT% 68.7 % (42.2-75.2); PLT 429 X1000 (130-400); RBC 4.39 XMIL (4.2-5.4)
[2017-05-29 15:14] LABS: UR EPITHELIAL CELLS >10 /HPF (<10); URINE BACTERIA 1+ /HPF; URINE RBC <10 /HPF (<10)
[2017-05-29 15:16] LABS: BILIRUBIN URINE SMALL (NEGATIVE); BLOOD URINE NEGATIVE (NEGATIVE); COLOR YELLOW; GLUCOSE URINE NEGATIVE (NEGATIVE); LEUKOCYTES URINE MODERATE (NEGATIVE); NITRITE URINE NEGATIVE (NEGATIVE); PROTEIN URINE TRACE mg/dL (NEGATIVE); TURBIDITY URINE HAZY (CLEAR); UROBILINOGEN URINE 2 mg/dL (NORMAL)
[2017-05-29 15:17] LABS: INR 1.04; PROTIME 10.9 Seconds (9.2-11.7); PTT 32.9 Seconds (22.0-36.0)
[2017-05-29 15:23] LABS: CALCIUM 9.7 mg/dL (8.8-10.2); POTASSIUM 4.4 mmol/L (3.5-5.1)
[2017-05-31] MEDS ORDERED: CATAPRES PO PRN (06:59)
[2017-05-31] MEDS ORDERED: LYRICA ONE ×2 (10:17→10:43)
[2017-05-31] MEDS ORDERED: LR 1,000 ML ONE (10:17)
[2017-05-31] MEDS ORDERED: REGLAN ONE (10:17)
[2017-05-31] MEDS ORDERED: PEPCID ONE (10:17)
[2017-05-31] MEDS ORDERED: KEFZOL 2 GM/D5W 2 GM/50 ML IVPB ONE (10:17)
[2017-05-31] MEDS ORDERED: COLACE ONE (10:17)
[2017-05-31] MEDS ORDERED: DIPRIVAN 1% ONE (12:16)
[2017-05-31] MEDS ORDERED: ROBINUL ONE (12:16)
[2017-05-31] MEDS ORDERED: QUELICIN (DOSE) ONE (12:16)
[2017-05-31] MEDS ORDERED: XYLOCAINE-MPF 2% ONE (12:16)
[2017-05-31] MEDS ORDERED: TORADOL ONE (12:47)
[2017-05-31] MEDS ORDERED: MARCAINE 0.25% PF ONE (12:47)
[2017-05-31] MEDS ORDERED: VANCOMYCIN ONE (12:47)
[2017-05-31] MEDS ORDERED: DURAMORPH ONE (12:47)
[2017-05-31] MEDS ORDERED: CYKLOKAPRON 1,000 MG/NS 1,000 MG/100 ML IVPB ONE (12:47)
[2017-05-31] MEDS ORDERED: SODIUM CHLORIDE 0.9% ONE (12:47)
[2017-05-31] MEDS ORDERED: NEOSPORIN G.U. IRRIGANT ONE (12:48)
[2017-05-31] MEDS ORDERED: EXPAREL 1.3% ONE (12:48)
[2017-05-31] MEDS ORDERED: KETAMINE ONE (12:58)
[2017-05-31] MEDS ORDERED: DECADRON ONE (13:11)
[2017-05-31] MEDS ORDERED: OFIRMEV 1000 MG/ISOTONIC SOLN 1,000 MG/100 ML BOTTLE ONE ×2 (13:12→15:09)
[2017-05-31] MEDS ORDERED: ZEMURON ONE (13:17)
[2017-05-31] MEDS ORDERED: FENTANYL ONE (13:35)
[2017-05-31] MEDS ORDERED: EPHEDRINE ONE (13:55)
[2017-05-31 14:28] LABS: URINE MICRO REVIEW NEEDED? NO; URINE SOURCE CATH
[2017-05-31 14:41] LABS: BILIRUBIN URINE NEGATIVE (NEGATIVE); BLOOD URINE NEGATIVE (NEGATIVE); COLOR YELLOW; GLUCOSE URINE NEGATIVE (NEGATIVE); LEUKOCYTES URINE NEGATIVE (NEGATIVE); NITRITE URINE NEGATIVE (NEGATIVE); PROTEIN URINE NEGATIVE (NEGATIVE); SP GRAVITY URINE 1.007; TURBIDITY URINE CLEAR (CLEAR); UROBILINOGEN URINE NORMAL (NORMAL)
[2017-05-31 14:43] LABS: UR EPITHELIAL CELLS <10 /HPF (<10); URINE BACTERIA NEGATIVE /HPF; URINE RBC <10 /HPF (<10); URINE WBC <10 /HPF (<10)
[2017-05-31] MEDS ORDERED: APRESOLINE ONE (16:26)
[2017-05-31] MEDS ORDERED: NS 1,000 ML ONE (16:26)
[2017-05-31] MEDS ORDERED: OXY IR PO PRN (16:53)
[2017-05-31] MEDS ORDERED: MILK OF MAGNESIA PO PRN (16:54)
[2017-05-31] MEDS ORDERED: ZOFRAN IV PRN (16:54)
[2017-05-31] MEDS ORDERED: MORPHINE IV PRN (16:54)
[2017-05-31] MEDS ORDERED: ZOFRAN PO PRN (16:54)
--- NOTE | 2017-05-31 17:13 | Diag Imaging Result Doc PS360 ---
EXAM: SHOULDER 1 VIEW RIGHT HISTORY: RT TOTAL SHOULDER TECHNIQUE: Single view COMPARISON: 05/23/2017 FINDINGS: Interval orthopedic surgery to the right shoulder. The humeral component is well-positioned in the proximal humerus. The glenoid component is well-positioned. No separation at the common clavicular joint. IMPRESSION: Recent orthopedic replacement of the right shoulder with good positioning. Electronically signed by Ben Bradley 05/31/2017 5:11 PM
[2017-05-31] MEDS: NS 1,000 ML IV SCH (17:35)
[2017-05-31] MEDS: GLUCOPHAGE PO SCH ×2 (17:35→17:36)
[2017-05-31] MEDS: ZANAFLEX PO SCH ×2 (17:35→21:43)
[2017-05-31] MEDS: PLAVIX PO SCH (17:36)
[2017-05-31] MEDS: COREG PO SCH ×2 (17:36→21:43)
[2017-05-31] MEDS: LASIX PO SCH (17:36)
[2017-05-31] MEDS: SYNTHROID PO SCH (17:36)
[2017-05-31] MEDS: ZYLOPRIM PO SCH (17:36)
[2017-05-31] MEDS: NORVASC PO SCH (17:36)
[2017-05-31] MEDS ORDERED: FLUZONE QUAD 2017-2018 SYRINGE IM ONE (18:55)
[2017-05-31] MEDS ORDERED: CYKLOKAPRON 1,000 MG in NS 100 ML IV ONE (19:15)
[2017-05-31] MEDS: TYLENOL PO SCH (21:43)
[2017-05-31] MEDS: KEFZOL 2 GM/D5W 2 GM/50 ML IVPB IV SCH (21:43)
[2017-05-31] MEDS: COLACE PO SCH (21:44)
--- NOTE | 2017-05-31 23:30 | OPERATIVE NOTE ---
PROCEDURE DATE: 05/31/2017 PREOPERATIVE DIAGNOSIS: Right comminuted proximal humeral fracture. POSTOPERATIVE DIAGNOSIS: Right comminuted proximal humeral fracture. PROCEDURE: Right reverse total shoulder arthroplasty with DePuy Delta Xtend size 10, cemented stem, a 42+ 9 humeral cup, a 42 eccentric Glenosphere and a standard metaglene. SURGEON: Ilan Flannery MD. PRINTED CIRCUIT BOARD ASSEMBLER: NOEMÍ Barnett who was present throughout the case and was critical for wound exposure, assistance with preparation of the above for implants, implantation of the prosthesis and wound closure. His assistance was critical for increasing efficiency and decreasing the anesthesia time. SECOND PHARMACY TECH CUSTOMER SERVICE: Kwame Cage RN. ANESTHESIA: General. IV FLUIDS: 2000 mL lactated Ringer. ESTIMATED BLOOD LOSS: 150 mL. COMPLICATIONS: None. INDICATION: The patient is a 71-year-old female, who is status post fall last week sustaining a right comminuted proximal humeral fracture. Recommendation to proceed with right reverse shoulder arthroplasty was offered. Risks and benefits of surgery were explained, including risk of anesthesia, , bleeding, infection, failure to relieve pain, postop stiffness, nerve injury, blood clots and other imponderables. All questions were answered. Patient and family wished to proceed with surgery. DETAILS OF OPERATION: The patient was taken to the operating room and placed supinely on the operating table. Once adequate anesthesia was obtained, patient was placed in a semi-[place] beach- chair position. The right shoulder was subsequently prepped and draped in usual sterile fashion. A standard deltopectoral incision was made with a skin knife. Hemostasis was obtained using electrocautery. The deltopectoral interval was then developed. The cephalic vein was retracted laterally. The clavipectoral fascia was elevated as well. The fracture site was then identified. The humeral head fragments were excised along with the lesser and greater tuberosity fragments. After this had been performed, attention was then turned to the glenoid. Using circumferential dissection with a deep knife, a guide was then placed on the glenoid and a guide pin was then placed. Reaming was then conducted. The central hole was then dilated. A standard metaglene was impacted into position. A locking screw was placed inferiorly and had good purchase. Upon placement of the drill holes, tip of the drill bit was accidentally broken and was unable to be retrieved. C-arm visualization was used and confirmed the small drill bit. It was unable to be retrieved and therefore continued with the case. Posterior and superiorly the glenoid was not palpated and was unable to be retrieved. The metaglene was removed and attempts at retrieving the small drill bit were unsuccessful. I was unable to retrieve the small drill bit and it was felt to be in a safe position and would be asymptomatic. The metaglene was placed once again. After copious irrigation with antibiotic pulsatile lavage. Three locking screws were placed and one nonlocking screw and appeared to have stable fixation. A 42 eccentric glenosphere was then placed with the eccentricity placed inferiorly. Attention was turned to the proximal humerus where sequential reaming was conducted up to size 10. A trial stem was then placed in order to return appropriate height. This was then removed. Copious irrigation then performed once again with antibiotic pulsatile lavage while vancomycin was mixed with cement on the back table. Cement was then impacted into the intramedullary canal. This was followed by the humeral stem and held in 10 degrees of retroversion while the cement cured. Exparel was placed in the deep soft tissue. After cement had cured, the trial cup size was placed. 42 +9 humeral cup had good stability and good range of motion. The trial cup was removed. Wound was copiously irrigated once again. This was followed by a 42+ 9 humeral cup. The shoulder was reduced, carried through range of motion and had good stability and range of motion. Remaining Exparel was placed in the deep soft tissue as well as the subcutaneous tissue. The wound was copiously irrigated once again. 2-0 Vicryl was used to repair the subcutaneous tissue, followed by running 2-0 Prolene. Benzoin, Steri-Strips were applied. Adaptic, sterile 4 x 4, ABD pad and tape was applied to the right shoulder, followed by shoulder immobilizer. All counts were correct. Patient tolerated the procedure well and was returned to the recovery room in stable condition. cc: Ilan Flannery MD
[2017-06-01] MEDS: KEFZOL 2 GM/D5W 2 GM/50 ML IVPB IV SCH (04:34)
[2017-06-01] MEDS: TYLENOL PO SCH ×2 (04:34→09:53)
[2017-06-01] MEDS: NS 1,000 ML IV SCH (04:35)
[2017-06-01 06:12] LABS: HEMATOCRIT 29.1 % (37.0-47.0); HEMOGLOBIN 8.8 g/dL (12.0-16.0)
[2017-06-01 06:43] LABS: CALCIUM 8.7 mg/dL (8.8-10.2); POTASSIUM 4.7 mmol/L (3.5-5.1)
--- NOTE | 2017-06-01 07:54 | PROGRESS NOTE ---
DATE: 06/01/2017 SUBJECTIVE: The patient is a 71-year-old female who is 1 day status post right reverse total shoulder arthroplasty for a fracture. She is currently resting comfortably this morning and has no complaints. PHYSICAL EXAMINATION: The patient's right upper extremity dressing is intact. She is neurovascularly intact. She has good vest maker strength. LABORATORY DATA: Her hemoglobin is 8.9, hematocrit is 29.1. IMPRESSION: 1. Postoperative day #1, status post right reverse total shoulder arthroplasty. 2. Acute blood loss anemia, asymptomatic. PLAN: At this point, we will discontinue her Garcia, and change her dressing, and Hep-Lock her IV. We will plan on discharging home. Patient will receive home physical therapy. She will follow up in the office in 12-14 days. cc: Ilan Flannery MD
[2017-06-01] MEDS ORDERED: PEPCID PO SCH (09:00)
[2017-06-01] MEDS ORDERED: PERIDEX MT SCH (09:00)
[2017-06-01] MEDS: COLACE PO SCH (09:53)
[2017-06-01] MEDS: ZANAFLEX PO SCH (09:53)
[2017-06-01] MEDS: SYNTHROID PO SCH (09:53)
[2017-06-01] MEDS: PLAVIX PO SCH (09:53)
[2017-06-01] MEDS: LASIX PO SCH (09:53)
[2017-06-01] MEDS: GLUCOPHAGE PO SCH (09:54)
[2017-06-01] MEDS: NORVASC PO SCH (09:55)
[2017-06-01] MEDS: COREG PO SCH (09:55)
[2017-06-01] MEDS: ZYLOPRIM PO SCH (09:56)
[2017-06-01 15:21] VITALS: BP 151/76
== END 2017-06-01 14:01 | disposition home health service (06) ==
LOC: SURHOLD 00:40 → 4N 15:25
PROVIDERS: ADMIT Orthopaedic Surgery Adult Reconstructive Orthopaedic Surgery; ATTEND Orthopaedic Surgery Adult Reconstructive Orthopaedic Surgery

== ENCOUNTER 2019-04-27 14:53 | Inpatient (IN) ==
--- NOTE | 2019-04-27 15:20 | PROVIDER DOCUMENTATION ---
HPI-General Adult - General Chief Complaint: N/V/D Stated Complaint: VOMITING Time Seen by Provider: 04/27/19 15:15 Source: patient Allergies/Adverse Reactions: Patient Allergies Allergy/AdvReac Type Severity Reaction Status Date / Time Sulfa (Sulfonamide Allergy RASH Verified 04/27/19 18:40 Antibiotics) sulfamethoxazole Allergy RASH Verified 04/27/19 18:40 [From Bactrim] trimethoprim [From Bactrim] Allergy RASH Verified 04/27/19 18:40 Home Medications: Home Medication List Medication Instructions Recorded Confirmed Last Taken Type Clopidogrel [Plavix] 75 mg PO DAILY 10/10/12 04/27/19 04/26/19 History 75 MG Furosemide [Lasix] 40 mg PO DAILY 10/10/12 04/27/19 04/26/19 History 40 MG Levothyroxine Sodium [Levoxyl] 150 mcg PO DAILY 10/10/12 04/27/19 04/26/19 History 150 MCG Carvedilol [Coreg] 25 mg PO BID 09/30/15 04/27/19 04/26/19 History 25 MG Metformin [Glucophage] 500 mg PO BID CC 09/30/15 04/27/19 04/26/19 History 500 MG Allopurinol 100 mg PO DAILY 09/01/16 04/27/19 04/26/19 History 100 MG Clonidine [Catapres] 0.1 mg PO DAILY PRN 09/01/16 04/27/19 04/26/19 History 0.1 MG Amlodipine [Norvasc] 2.5 mg PO DAILY 05/29/17 04/27/19 04/26/19 History 2.5 MG Iron Fum,Ps Cmp/Vit C/Niacin 10 mg PO DAILY 10/12/18 04/27/19 Unknown History [Integra Capsule] Temazepam [Restoril] 15 mg PO QHS 04/27/19 04/27/19 04/26/19 History 15mg Azithromycin [Zithromax] 250 mg PO DAILY #3 tab 04/29/19 Unknown Rx CefDINIR [Omnicef] 300 mg PO BID #10 cap 04/29/19 Unknown Rx - History of Present Illness -Gen Adult Nature of Presenting Problems: She presents to the ed with c/o vomiting and diarrhea starting last night, along with hemoptysis this morning. She states that this start within a few hours after eating [place] food. Her SPO2 is 89% on room air. She denies any fever, but states "I just feel bad all over." Location of Pain/Injury: reports: generalized Pain Radiation: reports: no radiation Quality of Pain: reports: aching Severity: reports: moderate, severe Onset/Duration: reports: last night Timing: reports: still present Context/Activities at Onset: reports: none Modifying Factors: improves with: nothing Associated Symptoms: reports: cough, diarrhea, nausea, vomiting. denies: back/neck pain, dizziness, genitourinary problems, muscle aches, rash, shortness of breath, swelling/mass in abdomen, syncope Similar Symptoms Previously?: No Recently seen or treated by another doctor?: No Review of Systems - Adult - REVIEW OF SYSTEMS - ADULT Constitutional: reports: no symptoms reported Eyes: reports: no symptoms reported Ears, Nose, Mouth & Throat: reports: no symptoms reported Cardiovascular: reports: no symptoms reported Respiratory: reports: see HPI Gastrointestinal: reports: see HPI Genitourinary: reports: no symptoms reported Musculoskeletal: reports: no symptoms reported Integumentary: reports: no symptoms reported Neurological: reports: no symptoms reported Psychiatric: reports: no symptoms reported Endocrine: reports: no symptoms reported Hematologic/Lymphatic: reports: no symptoms reported Allergic/Immunologic: reports: no symptoms reported All Other Systems: Reviewed and Negative Past History - Adult - PAST MEDICAL HISTORY-ADULT Review of Records: reports: Old Records Reviewed, Nursing Assessment Review, Medications Reviewed, Social history reviewed & non-contributory. Major Childhood Illnesses: reports: denies history Cardiovascular: reports: A-Fib, CAD, HTN, [place] Respiratory: reports: denies history Gastrointestinal: reports: denies history Obstetrical/Gynecological: reports: denies history Genitourinary: reports: denies history Musculoskeletal: reports: arthritis, other (gout) Neurological: reports: denies history Endocrine/Immune: reports: Diabetes, thyroid disorder Other Conditions: reports: denies history - PRIOR SURGERIES/PROCEDURES Surgical/Procedure History: reports: pacemaker, appendectomy, cholecystectomy - IMMUNIZATION STATUS Childhood Immunizations: See Nurse Assessment Flu Vaccine: See Nurse Assessment - FAMILY HISTORY Family History: reviewed, not pertinent Physical Exam-General - PHYSICAL EXAM-ADULT Initial Vital Signs Reviewed: Yes - CONSTITUTIONAL General Appearance: appears well, alert, no apparent distress - EYES Eyes: PERRL/EOMI - HEAD, EARS, NOSE, MOUTH & THROAT HENMT: normocephalic/atraumatic, moist mucous membranes, normal ENT inspection - NECK Neck: non-tender, full range of motion, supple - RESPIRATORY Respiratory: chest non-tender, no pleuratic chest pain, no respiratory distress, rhonchi - CARDIOVASCULAR Cardiovascular: normal peripheral pulses, regular rate, rhythm - GASTROINTESTINAL (ABDOMEN) Abdominal Exam: normal bowel sounds, non tender, soft - LYMPHATIC Lymphatic: no adenopathy - MUSCULOSKELETAL Back Exam: normal inspection, no CVA tenderness, no vertebral tenderness Extremity: normal range of motion, non-tender, normal gait, normal inspection - SKIN Integumentary: normal color, normal turgor, warm/dry - NEUROLOGIC Neurologic: grossly normal - PSYCHIATRIC Psych/Mental Status: normal thought content Progress - PLAN OF CARE/RESULTS Progress/Plan/Lab Results: Vital Signs - 8 hr 04/27/19 14:58 Temperature 99.2 F Pulse Rate 72 Respiratory Rate 20 Blood Pressure 134/73 O2 Sat by Pulse Oximetry 98 Orders Category Date Time Status CHEST-PORTABLE [RAD] Stat Exams 04/27/19 15:11 Ordered ABG [RESP] Routine Lab 04/27/19 15:11 Ordered AMYLASE [CHEM] Stat Lab 04/27/19 15:11 Ordered CBC WITH DIFF [HEME] Stat Lab 04/27/19 15:11 Ordered COMPREHENSIVE METABOLIC PANEL [CHEM] Stat Lab 04/27/19 15:11 Uncollected LIPASE [CHEM] Stat Lab 04/27/19 15:11 Uncollected PROTIME WITH INR [COAG] Stat Lab 04/27/19 15:11 Uncollected TROPONIN T Stat Lab 04/27/19 15:11 Ordered UA NIMS W/REFLEX CULT PL [URINALYSIS] Stat Lab 04/27/19 15:11 Uncollected EKG [EKG] Stat Ther 04/27/19 15:11 Ordered l Result Diagrams: 04/28/19 06:12 04/28/19 06:12 - EKG 1 Time of EKG reading by physician:: 15:15 EKG Read and Signed by:: Homar Polanco EKG Interpretation (*Must complete 3 of following elements*): Abnormal Rate: 71 Rhythm: NSR Mitchell: normal QRS: LBB, RBB, LVH VA Interval: normal ST Wave: normal Prior EKG Comparison: changes noted - CONSULTS/PCP/HOSPITALIST Notification #1 *Consult/PCP/Hospitalist*: [place] Time Discussed: 16:22 Consult Disposition: Admit Departure - Departure Date of Disposition Decision: 04/27/19 Time of Disposition Decision: 16:23 DIAGNOSIS: Pneumonia Qualifiers: Pneumonia type: due to unspecified organism Laterality: unspecified laterality Lung location: unspecified part of lung Qualified Code(s): J18.9 - Pneumonia, unspecified organism Abdominal pain Qualifiers: Abdominal location: unspecified location Qualified Code(s): R10.9 - Unspecified abdominal pain Disposition: ADMITTED INPATIENT 09 Certified Medical Emergency: Emergent Condition: Stable - Critical Care Note This patient required my direct & personal management of CC.: No Attestation - Physician/ DELMAR Attestation Patient care was provided by Advanced Practice Provider:: Yes Advanced Practice Provider:: Vicente Silva Advanced Practice Provider documentation review:: The Mid-level provider documentation, treatment plan and medical decision making was reviewed by the physician who agrees with all treatment and medical decision making by the P. The physician spent face to face time with patient:: Yes (HOMAR POLANCO) Advanced Practice Provider documentation review:: Supervising physician onsite and consulted in the evaluation and care of this patient. The physician did have a face to face encounter with the patient.
[2019-04-27 15:54] LABS: BASO# 0.03 X1000 (0.0-0.2); BASO% 0.2 % (0.0-0.8); EOS# 0.02 X1000 (0.0-0.7); EOS% 0.1 % (0.0-10.0); HEMATOCRIT 40.1 % (37.0-47.0); HEMOGLOBIN 12.7 g/dL (12.0-16.0); IMM GRAN# 0.03 X1000 (0.0-0.04); IMM GRAN% 0.2 % (0.0-0.5); LYMPH# 1.16 X1000 (1.2-3.4); LYMPH% 8.2 % (20.5-51.1); MCH 27.9 PG (27-31); MCHC 31.7 g/dL (33-37); MCV 88.1 FL (81-99); MONO# 1.14 X1000 (0.11-0.59); NEUT# 11.81 X1000 (1.4-6.5); NEUT% 83.3 % (42.2-75.2); PLT 274 X1000 (130-400); RBC 4.55 XMIL (4.2-5.4); RDW 14.3 % (11.5-14.5); WBC 14.19 X1000 (4.8-10.8)
[2019-04-27 16:02] LABS: BE 7.2 mmoll (-3.0-3.0); BLOOD TYPE ARTERIAL; HCO3-(ACT) 30.3 mmoll (20.0-26.0); O2(CT) 14.4 mL/dL (15.0-23.0); PCO2(98.6) 41 mmHg (35-45); SAMPLE BLOOD; SAO2 90.5 % (95.0-100.0); THB 11.8 g/dL (11.5-17.4); pH(98.6) 7.49 (7.35-7.45)
[2019-04-27 16:05] LABS: MODALITY ROOM AIR; O2HB 86.9 % (95.0-99.0); PO2(98.6) 49 mmHg (60-100)
[2019-04-27 16:06] LABS: ALLEN TEST YES
[2019-04-27 16:09] LABS: INR 1.12
[2019-04-27 16:14] LABS: AGAP 12; ALKALINE PHOSPHATASE 59 U/L (32-104); BUN 22 mg/dL (8-22); CALCIUM 8.4 mg/dL (8.8-10.2); CHLORIDE 101 mmol/L (98-107); COSMO 286; CREATININE 0.9 mg/dL (0.5-0.9); ESTIMATED GFR > 60; GLUCOSE 120 mg/dL (70-104); GOT 17 U/L (10-30); GPT 11 U/L (10-36); LIPASE 10 U/L (13-60); SODIUM 141 mmol/L (136-145); TCO2 29 mmol/L (25-35); TOTAL PROTEIN 6.2 g/dL (6.3-8.3)
[2019-04-27] MEDS ORDERED: DUONEB (A & A) INH ONE (16:14)
[2019-04-27] MEDS ORDERED: ZITHROMAX 500 MG/NS 500 MG/250 ML IVPB IV ONE (16:15)
[2019-04-27] MEDS ORDERED: ROCEPHIN 2 GM in NS 50 ML IV ONE (16:15)
[2019-04-27] MEDS ORDERED: ZOFRAN IV PRN (18:37)
[2019-04-27] MEDS ORDERED: DUONEB (A & A) INH PRN (18:37)
[2019-04-27] MEDS ORDERED: TYLENOL PO PRN (18:37)
[2019-04-27] MEDS ORDERED: NS 1,000 ML IV SCH (18:45)
--- NOTE | 2019-04-27 19:06 | EKG Report ---
Test Performed on : 04/27/2019 3:15:55 PM Test Reason : hemoptysis Blood Pressure : / mmHG Vent. Rate : 071 BPM Atrial Rate : 071 BPM P-R Int : 184 ms QRS Dur : 174 ms QT Int : 424 ms P-R-T Axes : 082 -47 -35 degrees QTc Int : 460 ms Normal sinus rhythm. Right bundle branch block Left anterior fascicular block Bifascicular block Abnormal ECG When compared with ECG of 29-MAY-2017 14:35, Sinus rhythm. has replaced Electronic atrial pacemaker T wave inversion no longer evident in Lateral leads Unconfirmed Result
--- NOTE | 2019-04-27 19:29 | HISTORY AND PHYSICAL ---
CHIEF COMPLAINT: Fever. HISTORY OF PRESENT ILLNESS: The patient is a very pleasant, 73-year-old female, who presented to the hospital noting that she had an episode of vomiting last night. She woke up this morning with cough, congestion, shortness of breath, and fever. She states prior to yesterday, she felt in her usual state of health. SOCIAL HISTORY: Patient is . She is retired. Lives at home in [place]. Does not smoke or drink. FAMILY HISTORY: Noncontributory given her current age. ALLERGIES: Sulfa causing a rash. MEDICATIONS: Plavix 75 daily, Lasix, Coreg, metformin, allopurinol, Catapres, Norvasc, and oxycodone. We will restart her home medications when medications and dosages have been verified. REVIEW OF SYSTEMS: Positive cough, congestion, low-grade fevers. Denies any chills. Denies dysuria, urinary frequency, urgency. She had vomiting last night, but has not vomited since. Denies any diarrhea, constipation, melena, hematochezia. Denies any dysuria, urinary frequency, urgency, hesitancy. Denies any polyuria or polydipsia. Denies headaches, blurred vision, change in vision. Does have chronic pain and swelling in her joints from her gout. PAST MEDICAL HISTORY: Chronic pain, atrial fibrillation, known coronary artery disease, hypertension. She has had an [place] in the past. She has gout, diabetes, hypothyroidism. She has had a pacemaker, appendectomy, cholecystectomy in the past. PHYSICAL EXAMINATION: VITAL SIGNS: Reviewed. Temperature 99 degrees, pulse 82, respiratory rate 20, BP 134/73, saturation 98% on room air. GENERAL: Patient is awake. She is very pleasant. She is in no current respiratory distress. HEENT: Normocephalic. NECK: Supple. CARDIOVASCULAR: Regular rate. CHEST: Decreased but equal breath sounds bilaterally. No current crackles or rhonchi. ABDOMEN: Soft, obese, nondistended. EXTREMITIES: Moves all extremities. NEUROLOGIC: No changes. ASSESSMENT: 1. Pneumonia. 2. Leukocytosis. White count 3. Diabetes. 4. Gout. 5. Chronic pain. 6. History of atrial fibrillation, although currently she has normal sinus rhythm. We will continue her anticoagulation. PLAN: We will admit the patient to the hospital. IV fluids, breathing treatments, oxygen, antibiotics. Unsure if the vomiting episode had anything to do with her pneumonia, but will cover for aspiration and will follow. cc: Shashank Padilla MD MTDD
--- NOTE | 2019-04-27 19:40 | Diag Imaging Result Doc PS360 ---
EXAM: CHEST-PORTABLE INDICATION: hemoptysis TECHNIQUE: One view COMPARISON: 02/19/2018 FINDINGS: Patchy airspace consolidation involving the left mid and lower lung zone is identified indicating pneumonia. The right lung is essentially clear. There is no discrete pleural fluid collection or pneumothorax. The cardiac silhouette is mildly prominent but stable. IMPRESSION: Left lower lung zone consolidation indicating pneumonia. Electronically signed by Remberto Fallon 04/27/2019 7:38 PM
[2019-04-27] MEDS ORDERED: PNEUMOVAX 23 IM ONE (23:18)
[2019-04-28] MEDS: DUONEB (A & A) INH SCH ×6 (01:25→19:29)
[2019-04-28 06:49] LABS: HEMATOCRIT 36.9 % (37.0-47.0); HEMOGLOBIN 11.3 g/dL (12.0-16.0); MCH 27.4 PG (27-31); MCHC 30.6 g/dL (33-37); MCV 89.6 FL (81-99); MPV 8.9 FL (7.4-10.4); RBC 4.12 XMIL (4.2-5.4); RDW 14.3 % (11.5-14.5); WBC 9.79 X1000 (4.8-10.8)
[2019-04-28 06:56] LABS: BILIRUBIN URINE NEGATIVE (NEGATIVE); BLOOD URINE NEGATIVE (NEGATIVE); CLARITY CLEAR (CLEAR); COLOR YELLOW; GLUCOSE URINE NEGATIVE (NEGATIVE); KETONE URINE NEGATIVE (NEGATIVE); LEUKOCYTES URINE 2+ (NEGATIVE); NITRITE URINE NEGATIVE (NEGATIVE); PH URINE 6.5; PROTEIN URINE 1+(30 mg/dL) mg/dL (NEGATIVE); SP GRAVITY URINE 1.015; UROBILINOGEN URINE NORMAL
[2019-04-28 07:01] LABS: AGAP 8; ALBUMIN 3.4 g/dL (3.5-5.0); ALKALINE PHOSPHATASE 55 U/L (32-104); BUN 17 mg/dL (8-22); CALCIUM 8.7 mg/dL (8.8-10.2); CHLORIDE 103 mmol/L (98-107); COSMO 281; CREATININE 0.6 mg/dL (0.5-0.9); ESTIMATED GFR > 60; GLUCOSE 101 mg/dL (70-104); GOT 12 U/L (10-30); GPT 7 U/L (10-36); MAGNESIUM 1.6 mg/dL (1.5-2.7); POTASSIUM 3.4 mmol/L (3.5-5.1); SODIUM 140 mmol/L (136-145); TCO2 29 mmol/L (25-35); TOTAL PROTEIN 5.6 g/dL (6.3-8.3)
[2019-04-28 07:16] LABS: URINE BACTERIA 2+ /HFP; URINE CAST NONE SEEN /LPF; URINE CRYSTAL NONE SEEN /HPF; URINE EPITHELIAL CELLS <10 /HPF (<10); URINE RBC <10 /HPF (<10); URINE SMALL ROUND CELLS TRANSITIONAL PRESENT; URINE SOURCE CLEAN CATCH
[2019-04-28 07:17] LABS: URINE YEAST PRESENT /HPF
[2019-04-28] MEDS ORDERED: CATAPRES PO PRN (08:53)
[2019-04-28] MEDS ORDERED: NORVASC PO SCH (09:00)
--- NOTE | 2019-04-28 09:39 | PROGRESS NOTE ---
DATE: 04/28/2019 SUBJECTIVE: The patient states that she is feeling a lot better. She is still having cough and shortness of breath, but was able to get up and sit in a chair this morning to eat breakfast. Currently, she is back in the bed. Denies any fevers or chills currently. PHYSICAL EXAMINATION: Vital Signs: Reviewed. Temp 99.2 degrees, pulse 71, respiratory rate 18, BP 178/67. General: The patient is awake. Currently, she is in no respiratory distress. HEENT: Normocephalic. Neck: Supple. Cardiovascular: Regular rate. Chest: Decreased, but equal breath sounds. No crackles. No wheezing. Abdomen: Soft, nondistended. Extremities: Moves all extremities. ASSESSMENT: 1. Pneumonia. Will continue Rocephin. Change azithromycin to oral. 2. Fever. 3. Nausea and vomiting, appears resolved. 4. Leukocytosis, improving. White count is down to 11. 5. Diabetes. 6. Gout. 7. Chronic pain. PLAN: Will continue the patient in the hospital. Continue antibiotics. Will attempt to change azithromycin to p.o. if she tolerates this. Hopefully, we can change Rocephin to Omnicef in the morning, and discharge home. Will continue her home medications, and will follow. cc: Shashank Padilla MD
[2019-04-28] MEDS: ROCEPHIN 1 GM in NS 50 ML IV SCH (10:39)
[2019-04-28] MEDS: ZITHROMAX PO SCH (10:39)
[2019-04-28] MEDS: LASIX PO SCH (10:40)
[2019-04-28] MEDS: PLAVIX PO SCH (10:40)
[2019-04-28] MEDS: COREG PO SCH ×2 (10:40→20:49)
[2019-04-28] MEDS: ZYLOPRIM PO SCH (10:40)
[2019-04-28] MEDS: NS 1,000 ML IV SCH (14:54)
[2019-04-28] MEDS: HEMOCYTE PLUS CAPSULE PO SCH (14:56)
[2019-04-28] MEDS: GLUCOPHAGE PO SCH (17:19)
[2019-04-28] MEDS ORDERED: RESTORIL PO SCH (21:00)
[2019-04-29] MEDS: DUONEB (A & A) INH SCH ×2 (03:30→08:50)
[2019-04-29 05:51] VITALS: BP 169/83
[2019-04-29] MEDS: NS 1,000 ML IV SCH (06:04)
[2019-04-29] MEDS ORDERED: SYNTHROID PO SCH (07:00)
[2019-04-29] MEDS ORDERED: NORVASC PO SCH (09:00)
[2019-04-29] MEDS: ZYLOPRIM PO SCH (09:56)
[2019-04-29] MEDS: HEMOCYTE PLUS CAPSULE PO SCH (09:56)
[2019-04-29] MEDS: LASIX PO SCH (09:56)
[2019-04-29] MEDS: COREG PO SCH (09:56)
[2019-04-29] MEDS: ZITHROMAX PO SCH (09:56)
[2019-04-29] MEDS: PLAVIX PO SCH (09:56)
[2019-04-29] MEDS: GLUCOPHAGE PO SCH (09:56)
[2019-04-29] MEDS: ROCEPHIN 1 GM in NS 50 ML IV SCH (10:01)
--- NOTE | 2019-04-29 18:34 | DISCHARGE SUMMARY ---
ADMISSION DATE: 04/27/2019 DISCHARGE DATE: 04/29/2019 DISCHARGE DIAGNOSIS: 1. Pneumonia improved. 2. Leukocytosis resolved. 3. Diabetes. 4. Gout. 5. Chronic pain. 6. Obesity. 7. Hypertension. CONSULTATIONS: None. PROCEDURES: None. BRIEF HOSPITAL COURSE: Patient 73-year-old female who presented to [facility] ER secondary to abdominal pain, coughing, congestion and fever. She was subsequently diagnosed with pneumonia. We placed her in the hospital, placed on antibiotics, oxygen, breathing treatments as needed. Thankfully she had an uneventful hospital course. On discharge she is awake, alert, she is in no distress. DISCHARGE DISPOSITION: Greater than 30 minutes was spent in total care. Patient discharged home on Omnicef, azithromycin. She will follow up outpatient in the office to recheck her blood pressures as well as her chest x-ray. No other changes made in her chronic diet or medications. cc: Shashank Padilla MD
== END 2019-04-29 11:45 | disposition home or self-care (01) | DRG 195 ==
LOC: P.ED 14:53 → P.EDIPHOLD 14:54 → P.MEDSURG 21:46
PROVIDERS: ADMIT Family Medicine; ATTEND Family Medicine

== ENCOUNTER 2019-07-13 14:32 | Inpatient (IN) ==
[2019-07-13 15:24] LABS: BASO# 0.05 X1000 (0.0-0.2); BASO% 0.3 % (0.0-0.8); EOS# 0.03 X1000 (0.0-0.7); EOS% 0.2 % (0.0-10.0); HEMATOCRIT 40.4 % (37.0-47.0); HEMOGLOBIN 12.5 g/dL (12.0-16.0); IMM GRAN# 0.03 X1000 (0.0-0.04); IMM GRAN% 0.2 % (0.0-0.5); LYMPH% 8.8 % (20.5-51.1); MCH 27.5 PG (27-31); MCHC 30.9 g/dL (33-37); MONO# 1.05 X1000 (0.11-0.59); MONO% 7.1 % (1.7-9.3); MPV 8.4 FL (7.4-10.4); NEUT# 12.35 X1000 (1.4-6.5); NEUT% 83.4 % (42.2-75.2); PLT 266 X1000 (130-400); RBC 4.54 XMIL (4.2-5.4); RDW 14.1 % (11.5-14.5); WBC 14.81 X1000 (4.8-10.8)
[2019-07-13 15:44] LABS: AGAP 11; ALBUMIN 4.2 g/dL (3.5-5.0); ALKALINE PHOSPHATASE 63 U/L (32-104); BUN 23 mg/dL (8-22); CALCIUM 9.5 mg/dL (8.8-10.2); CHLORIDE 102 mmol/L (98-107); COSMO 285; CREATININE 0.9 mg/dL (0.5-0.9); ESTIMATED GFR > 60; GLUCOSE 129 mg/dL (70-104); GOT 14 U/L (10-30); GPT 10 U/L (10-36); POTASSIUM 3.8 mmol/L (3.5-5.1); SODIUM 140 mmol/L (136-145); TCO2 27 mmol/L (25-35); TOTAL PROTEIN 6.4 g/dL (6.3-8.3)
--- NOTE | 2019-07-13 16:04 | PROVIDER DOCUMENTATION ---
This chart was entered by Chiara Carcamo Scribe, acting as scribe for Piyush Wilson MD. HPI-General Adult - General Chief Complaint: Nausea Stated Complaint: NAUSEA / FEVER Time Seen by Provider: 07/13/19 15:00 Source: patient Allergies/Adverse Reactions: Patient Allergies Allergy/AdvReac Type Severity Reaction Status Date / Time Sulfa (Sulfonamide Allergy RASH Verified 04/27/19 18:40 Antibiotics) sulfamethoxazole Allergy RASH Verified 04/27/19 18:40 [From Bactrim] trimethoprim [From Bactrim] Allergy RASH Verified 04/27/19 18:40 Home Medications: Home Medication List Medication Instructions Recorded Confirmed Last Taken Type Clopidogrel [Plavix] 75 mg PO DAILY 10/10/12 04/27/19 04/26/19 History 75 MG Furosemide [Lasix] 40 mg PO DAILY 10/10/12 04/27/19 04/26/19 History 40 MG Levothyroxine Sodium [Levoxyl] 150 mcg PO DAILY 10/10/12 04/27/19 04/26/19 History 150 MCG Carvedilol [Coreg] 25 mg PO BID 09/30/15 04/27/19 04/26/19 History 25 MG Metformin [Glucophage] 500 mg PO BID CC 09/30/15 04/27/19 04/26/19 History 500 MG Allopurinol 100 mg PO DAILY 09/01/16 04/27/19 04/26/19 History 100 MG Clonidine [Catapres] 0.1 mg PO DAILY PRN 09/01/16 04/27/19 04/26/19 History 0.1 MG Amlodipine [Norvasc] 2.5 mg PO DAILY 05/29/17 04/27/19 04/26/19 History 2.5 MG Iron Fum,Ps Cmp/Vit C/Niacin 10 mg PO DAILY 10/12/18 04/27/19 Unknown History [Integra Capsule] Temazepam [Restoril] 15 mg PO QHS 04/27/19 04/27/19 04/26/19 History 15mg Azithromycin [Zithromax] 250 mg PO DAILY #3 tab 04/29/19 Unknown Rx CefDINIR [Omnicef] 300 mg PO BID #10 cap 04/29/19 Unknown Rx - History of Present Illness -Gen Adult Nature of Presenting Problems: 73 y/o female presents to ED with weakness, dizziness, and nausea onset this morning. Pt also complains of constipation, but states she had a bowel movement this morning. Pt is alert and nontoxic. Location of Pain/Injury: reports: none Pain Radiation: reports: no radiation Quality of Pain: reports: none Severity: reports: mild Onset/Duration: reports: this morning Timing: reports: still present Context/Activities at Onset: reports: none Modifying Factors: improves with: nothing Associated Symptoms: reports: constipation, dizziness, nausea, weakness Similar Symptoms Previously?: No Recently seen or treated by another doctor?: No Review of Systems - Adult - REVIEW OF SYSTEMS - ADULT Constitutional: denies: chills, fever Eyes: reports: no symptoms reported Ears, Nose, Mouth & Throat: reports: no symptoms reported Cardiovascular: denies: chest pain, palpitations Respiratory: denies: cough, shortness of breath Gastrointestinal: reports: constipation, nausea. denies: abdominal pain, diarrhea, vomiting Genitourinary: reports: no symptoms reported Musculoskeletal: reports: no symptoms reported Integumentary: reports: no symptoms reported Neurological: reports: dizziness/vertigo, other (weakness). denies: seizure Psychiatric: reports: no symptoms reported Endocrine: reports: no symptoms reported Hematologic/Lymphatic: reports: no symptoms reported Allergic/Immunologic: reports: no symptoms reported All Other Systems: Reviewed and Negative Past History - Adult - PAST MEDICAL HISTORY-ADULT Review of Records: reports: Old Records Reviewed, Nursing Assessment Review, Medications Reviewed Major Childhood Illnesses: reports: denies history Cardiovascular: reports: A-Fib, CAD, HTN, SC, pacemaker Respiratory: reports: denies history Gastrointestinal: reports: denies history Obstetrical/Gynecological: reports: denies history Genitourinary: reports: kidney disease Musculoskeletal: reports: arthritis, other (gout) Neurological: reports: denies history Endocrine/Immune: reports: Diabetes, thyroid disorder (hypo) Other Conditions: reports: denies history - PRIOR SURGERIES/PROCEDURES Surgical/Procedure History: reports: appendectomy, cholecystectomy, pacemaker, tonsillectomy, orthopedic (extremity) (shoulder), joint replacement (TKR), other (renal stent) - IMMUNIZATION STATUS Childhood Immunizations: See Nurse Assessment Flu Vaccine: See Nurse Assessment - FAMILY HISTORY Family History: reviewed, not pertinent - SOCIAL HISTORY Smoking: quit greater than 1 year Substance Use: none/never Alcohol Use Frequency: never Living Situation: family Physical Exam-General - PHYSICAL EXAM-ADULT Initial Vital Signs Reviewed: Yes - CONSTITUTIONAL General Appearance: appears well, alert, no apparent distress - EYES Eyes: PERRL/EOMI, pink conjunctivae - HEAD, EARS, NOSE, MOUTH & THROAT HENMT: normocephalic/atraumatic, moist mucous membranes, normal ENT inspection - NECK Neck: non-tender, full range of motion - RESPIRATORY Respiratory: chest non-tender, lungs clear, normal breath sounds - CARDIOVASCULAR Cardiovascular: normal peripheral pulses, regular rate, rhythm - GASTROINTESTINAL (ABDOMEN) Abdominal Exam: normal bowel sounds, non tender, soft - GENITOURINARY Rectal Exam: normal exam, normal rectal tone - MUSCULOSKELETAL Back Exam: normal inspection, no CVA tenderness, no vertebral tenderness Extremity: normal range of motion, non-tender - SKIN Integumentary: normal color, warm/dry - NEUROLOGIC Neurologic: grossly normal - PSYCHIATRIC Psych/Mental Status: normal mood/affect, normal thought content, normal thought process, oriented x 3 Progress - PLAN OF CARE/RESULTS Progress/Plan/Lab Results: Vital Signs - 8 hr 07/13/19 14:42 Temperature 98.4 F Pulse Rate 62 Respiratory Rate 18 Blood Pressure 96/57 O2 Sat by Pulse Oximetry 94 L Laboratory Results - last 24 hr 07/13/19 15:18 WBC 14.81 H RBC 4.54 Hgb 12.5 Hct 40.4 MCV 89.0 MCH 27.5 MCHC 30.9 L RDW Std Deviation 14.1 Plt Count 266 MPV 8.4 Immature Gran % (Auto) 0.2 Neut % (Auto) 83.4 H Lymph % (Auto) 8.8 L Baker % (Auto) 7.1 Eos % (Auto) 0.2 Baso % (Auto) 0.3 Immature Gran # (Auto) 0.03 Neut # (Auto) 12.35 H Lymph # (Auto) 1.30 Baker # (Auto) 1.05 H Eos # (Auto) 0.03 Baso # (Auto) 0.05 Orders Category Date Time Status CHEST-2 VIEWS [RAD] Stat Exams 07/13/19 14:51 Taken CBC WITH DIFF [HEME] Stat Lab 07/13/19 15:18 Completed COMPREHENSIVE METABOLIC PANEL [CHEM] Stat Lab 07/13/19 15:[address] W/POSS RFLX CULT [URINALYSIS] Stat Lab 07/13/19 14:51 Uncollected Laboratory Tests 07/13/19 07/13/19 07/13/19 15:18 15:18 15:42 WBC 14.81 H RBC 4.54 Hgb 12.5 Hct 40.4 MCV 89.0 MCH 27.5 MCHC 30.9 L RDW Std Deviation 14.1 Plt Count 266 MPV 8.4 Immature Gran % (Auto) 0.2 Neut % (Auto) 83.4 H Lymph % (Auto) 8.8 L Baker % (Auto) 7.1 Eos % (Auto) 0.2 Baso % (Auto) 0.3 Immature Gran # (Auto) 0.03 Neut # (Auto) 12.35 H Lymph # (Auto) 1.30 Baker # (Auto) 1.05 H Eos # (Auto) 0.03 Baso # (Auto) 0.05 Sodium 140 Potassium 3.8 Chloride 102 Carbon Dioxide 27 Anion Gap 11 BUN 23 H Creatinine 0.9 Estimated GFR/1.73 m2 > 60 BUN/Creatinine Ratio 26 Glucose 129 H Calculated Osmolality 285 Calcium 9.5 Total Bilirubin 0.50 AST 14 ALT 10 Alkaline Phosphatase 63 Total Protein 6.4 Albumin 4.2 Globulin 2.0 Albumin/Globulin Ratio 2.0 Urine Source Urine Color Urine Clarity Urine pH Ur Specific [place] Urine Protein Urine Ketones Urine Blood Urine Nitrite Urine Bilirubin Urine Urobilinogen Urine Microscopic RBC Urine WBC Urine Glucose Stool Occult Blood NEGATIVE 07/13/19 15:50 WBC RBC Hgb Hct MCV MCH MCHC RDW Std Deviation Plt Count MPV Immature Gran % (Auto) Neut % (Auto) Lymph % (Auto) Baker % (Auto) Eos % (Auto) Baso % (Auto) Immature Gran # (Auto) Neut # (Auto) Lymph # (Auto) Baker # (Auto) Eos # (Auto) Baso # (Auto) Sodium Potassium Chloride Carbon Dioxide Anion Gap BUN Creatinine Estimated GFR/1.73 m2 BUN/Creatinine Ratio Glucose Calculated Osmolality Calcium Total Bilirubin AST ALT Alkaline Phosphatase Total Protein Albumin Globulin Albumin/Globulin Ratio Urine Source CATH Urine Color YELLOW Urine Clarity CLEAR Urine pH 5.0 Ur Specific [place] 1.005 Urine Protein NEGATIVE Urine Ketones NEGATIVE Urine Blood NEGATIVE Urine Nitrite NEGATIVE Urine Bilirubin NEGATIVE Urine Urobilinogen NORMAL Urine Microscopic RBC Not Reportable Urine WBC NEGATIVE Urine Glucose NEGATIVE Stool Occult Blood Result Diagrams: 07/13/19 15:18 07/13/19 15:18 - XRAY 1 XRAY Study: Abdomen Impression: See EMR Report ([facility] - [address], [address], [place] [address] [place] [address] Department of Imaging Patient: [facility] Date: 07/13/19MR#: [id number] : 1945DM Status: REG ERAcct#: [id number] Age/Sex: 73/FRoom/Bed: Loc: P.ED Ordering Physician: Piyush Wilson MD Family Physician: Shashank Padilla MD Reason for Procedure: sob Signed ABDOMEN FLAT/UPRIGHT - 07/13/2019 INDICATION: sob COMPARISON: 02/28/2013 FINDINGS: Stable cholecystectomy clips. There is moderate constipation. No bowel obstruction. No free air or abnormal calcifications. IMPRESSION: Moderate constipation. Electronically signed by Priyank Saenz 07/13/2019 4:10 PM 07/13/19 1610 Interpreting Physician: Priyank Saenz MD Dictated Date/Time: 07/13/19 1609 cc: Piyush Wilson MD; Shashank Padilla MD) 2 XRAY Study: Chest Impression: See EMR Report ([facility] - [address], [address], [place] [address] [address] Department of Imaging Patient: [facility] Date: 07/13/19MR#: [id number] : 1945DM Status: REG ERAcct#: [id number] Age/Sex: 73/FRoom/Bed: Loc: P.ED Ordering Physician: Piyush Wilson MD Family Physician: Shashank Padilla MD Reason for Procedure: 6 WEEKS POST PNEUMONIA WEAK Signed CHEST-2 VIEWS - 07/13/2019 INDICATION: 6 WEEKS POST PNEUMONIA WEAK COMPARISON: 04/27/2019 FINDINGS: There is a stable left-sided dual-chamber pacemaker. Stable mild cardiomegaly. There is significant infiltrate in the right lung base. The left lung base has cleared. No pneumothorax or pleural effusion IMPRESSION: Bronchopneumonia in the right lung base. Electronically signed by Priyank Saenz 07/13/2019 4:07 PM 07/13/19 1607 Interpreting Physician: Priyank Saenz MD Dictated Date/Time: 07/13/19 1603 cc: Piyush Wilson MD; Shashank Padilla MD) - CONSULTS/PCP/HOSPITALIST Notification #1 *Consult/PCP/Hospitalist*: Dr. Padilla Time Discussed: 16:30 Reason/Comments: Pneumonia Consult Disposition: Admit Departure - Departure Date of Disposition Decision: 07/13/19 Time of Disposition Decision: 16:30 DIAGNOSIS: Pneumonia Qualifiers: Pneumonia type: due to unspecified organism Laterality: right Lung location: lower lobe of lung Qualified Code(s): J18.1 - Lobar pneumonia, unspecified organism Disposition: ADMITTED INPATIENT 09 Certified Medical Emergency: Emergent Condition: Stable Referrals and Follow-Ups: Shashank Padilla MD [Primary Care Provider] - - Critical Care Note This patient required my direct & personal management of CC.: No Attestation - Physician/ DELMAR Attestation Patient care was provided by Advanced Practice Provider:: No The physician spent face to face time with patient:: Yes Advanced Practice Provider documentation review:: Supervising physician onsite and consulted in the evaluation and care of this patient. The physician did have a face to face encounter with the patient. This chart was documented by the indicated scribe, (Chiara Carcamo, Jean Claude) and accurately reflects the services I performed and decisions made by me, Piyush Wilson MD, as attested by the provider's signature.
[2019-07-13 16:08] LABS: OCCULT BLOOD 1 NEGATIVE (NEGATIVE)
--- NOTE | 2019-07-13 16:09 | Diag Imaging Result Doc PS360 ---
CHEST-2 VIEWS - 07/13/2019 INDICATION: 6 WEEKS POST PNEUMONIA WEAK COMPARISON: 04/27/2019 FINDINGS: There is a stable left-sided dual-chamber pacemaker. Stable mild cardiomegaly. There is significant infiltrate in the right lung base. The left lung base has cleared. No pneumothorax or pleural effusion IMPRESSION: Bronchopneumonia in the right lung base. Electronically signed by Priyank Saenz 07/13/2019 4:07 PM
--- NOTE | 2019-07-13 16:12 | Diag Imaging Result Doc PS360 ---
ABDOMEN FLAT/UPRIGHT - 07/13/2019 INDICATION: sob COMPARISON: 02/28/2013 FINDINGS: Stable cholecystectomy clips. There is moderate constipation. No bowel obstruction. No free air or abnormal calcifications. IMPRESSION: Moderate constipation. Electronically signed by Priyank Saenz 07/13/2019 4:10 PM
[2019-07-13 16:17] LABS: BILIRUBIN URINE NEGATIVE (NEGATIVE); BLOOD URINE NEGATIVE (NEGATIVE); CLARITY CLEAR (CLEAR); COLOR YELLOW; GLUCOSE URINE NEGATIVE (NEGATIVE); KETONE URINE NEGATIVE (NEGATIVE); LEUKOCYTES URINE NEGATIVE (NEGATIVE); NITRITE URINE NEGATIVE (NEGATIVE); PROTEIN URINE NEGATIVE (NEGATIVE); SP GRAVITY URINE 1.005; UROBILINOGEN URINE NORMAL
[2019-07-13 16:18] LABS: URINE SOURCE CATH
[2019-07-13] MEDS: ROCEPHIN 1 GM in NS 50 ML IV SCH (16:45)
[2019-07-13] MEDS: LOVENOX SUBQ SCH (16:45)
[2019-07-13] MEDS ORDERED: NS 1,000 ML IV SCH (16:45)
[2019-07-13] MEDS ORDERED: ROCEPHIN ONE (16:47)
[2019-07-13] MEDS ORDERED: FLU VACCINE IM ONE (19:24)
[2019-07-13] MEDS ORDERED: PNEUMOVAX 23 IM ONE (19:45)
--- NOTE | 2019-07-13 20:23 | HISTORY AND PHYSICAL ---
CHIEF COMPLAINT: Nausea, fever, generalized weakness. HISTORY OF PRESENT ILLNESS: This is a 73-year-old female with a history of hypertension, systolic heart failure, diabetes mellitus, chronic kidney disease, hypothyroid. She presents to the emergency room complaining of generalized weakness, dizziness, and nausea that has been present for 2 to 3 days. She states that it was worse this morning. She has had some constipation. She did have a bowel movement this morning, although it was very small and hard. She states her appetite has not been good over the past few days. She denies any chest pain, palpitations, any vomiting. PAST MEDICAL HISTORY: 1. Atrial fibrillation. 2. Coronary artery disease. 3. Systolic heart failure. 4. VA, status post pacemaker. 5. Chronic anticoagulation. 6. Hypothyroid. 7. Renal artery stenosis, status post stent, subsequent chronic kidney disease. 8. Hypertension. PAST SURGICAL HISTORY: 1. Pacemaker placement. 2. Appendectomy. 3. Cholecystectomy. 4. Total knee replacement. 5. Tonsillectomy. SOCIAL HISTORY: She is . She lives with her . She denies any alcohol, tobacco, or illicit drug use. ALLERGIES: Sulfa which causes a rash. HOME MEDICATIONS: A list will be obtained by the nursing staff, and once verified, will review and restart as appropriate. REVIEW OF SYSTEMS: Discussed with patient with pertinent positives stated in the HPI. She denied any syncope, any chest pain or palpitations, shortness of breath, cough, any vomiting, diarrhea, black or bloody vomitus or stools, any hematuria, dysuria, frequency, urgency. PHYSICAL EXAMINATION: GENERAL: This is a 73-year-old female who is lying on the stretcher in the emergency room in no distress. VITAL SIGNS: Blood pressure is 155/80, with a heart rate of 69, respirations are 20, temperature is 98.4 degrees, with O2 saturations that are 94% on 2 L nasal cannula. HEENT: Head is normocephalic, atraumatic. Mucous membranes are moist. Pupils are equal, round, react to light. EOMs are intact. Sclerae are anicteric. NECK: Supple with trachea midline. CARDIOVASCULAR: Regular rate and rhythm. S1 and S2 appreciated. She has bilateral pretibial edema just about up to her knees. Calves are nontender bilaterally with peripheral pulses palpable x4 extremities. PULMONARY: Breath sounds are clear with no increased work of breathing noted. Chest rises and falls symmetric with respiration. Chest wall is nontender to palpation. GASTROINTESTINAL: Abdomen is soft, nontender, nondistended, with bowel sounds in all 4 quadrants. GENITOURINARY: No CVA or suprapubic tenderness. NEUROLOGIC: She is alert and oriented x3. SKIN: Warm and dry. LABORATORY AND DIAGNOSTIC DATA: 1. WBC is 14.8 with hemoglobin 12.5, hematocrit 40.4, and platelets of 266,000. Sodium 140, potassium 3.8, BUN 23, creatinine 0.9, with a glucose of 129. Urinalysis is essentially negative. Stool for occult blood is negative. 2. Chest x-ray reveals bronchopneumonia in the right lung base. 3. Abdominal x-ray reveals moderate constipation with no bowel obstruction, no free air. ASSESSMENT AND PLAN: 1. Right bronchopneumonia. We will obtain blood cultures, start antibiotic coverage of Rocephin and azithromycin, and further antibiotics will be culture driven. Incentive spirometer q.4 hours. Have the patient up in the chair with meals and p.r.n. 2. Moderate constipation. Will give Dulcolax suppository b.i.d. x2, with MiraLAX daily. 3. Leukocytosis secondary to #1. Antibiotics as stated. 4. Diabetes mellitus type 2. Pattern blood glucose with sliding scale insulin. 5. Systolic heart failure. We will identify her home medications and continue. Daily weights, strict I O, will gently hydrate. 6. Atrial fibrillation. She will be placed on telemetry. We will monitor heart rate. Continue home medications as appropriate. 7. Hypothyroid. We will check a TSH. Continue her home medications once verified. 8. Chronic kidney disease in a patient with renal artery stenosis, status post stent. GFR has been greater than 60 since 2018. We will monitor daily labs, renal dose medications as appropriate. 9. Chronic pain. We will continue her home medications as appropriate. 10. For deep vein thrombosis prophylaxis, will use Lovenox, and gastrointestinal prophylaxis, Prilosec. Further treatments pending hospital course. Plan was discussed with Dr. Padilla. Dictated by NIMISHA Yu for Shashank Padilla MD cc: NIMISHA Yu MD
[2019-07-13] MEDS: DULCOLAX PR SCH (20:34)
[2019-07-13] MEDS: ZITHROMAX PO SCH (20:34)
[2019-07-13] MEDS: MIRALAX PO SCH (20:34)
--- NOTE | 2019-07-13 23:11 | HISTORY AND PHYSICAL ---
ADDENDUM: Patient seen and examined by myself. Full note dictated and discussed with nurse practitioner. Patient is a 73-year-old female who has known multiple medical problems to include known coronary artery disease, atrial fibrillation, systolic congestive heart failure. She presented to the hospital with increased cough, congestion, increased shortness of breath. She was subsequently diagnosed with right bronchial pneumonia. We are going to place her in the hospital, place her on antibiotics, IV fluids, oxygen and we will follow. Please see full note. cc: Shashank Padilla MD
[2019-07-14] MEDS: HUMALOG (PARKWAY) SUBQ SCH ×5 (00:08→21:57)
[2019-07-14] MEDS: RESTORIL PO SCH ×2 (00:35→21:56)
[2019-07-14 05:59] LABS: BASO# 0.04 X1000 (0.0-0.2); BASO% 0.4 % (0.0-0.8); EOS# 0.07 X1000 (0.0-0.7); EOS% 0.7 % (0.0-10.0); HEMATOCRIT 36.3 % (37.0-47.0); IMM GRAN# 0.02 X1000 (0.0-0.04); IMM GRAN% 0.2 % (0.0-0.5); LYMPH% 13.8 % (20.5-51.1); MCH 27.1 PG (27-31); MCHC 30.3 g/dL (33-37); MCV 89.4 FL (81-99); MONO# 0.78 X1000 (0.11-0.59); MONO% 8.3 % (1.7-9.3); MPV 8.8 FL (7.4-10.4); NEUT% 76.6 % (42.2-75.2); PLT 234 X1000 (130-400); RBC 4.06 XMIL (4.2-5.4); RDW 14.1 % (11.5-14.5); WBC 9.41 X1000 (4.8-10.8)
[2019-07-14 06:14] LABS: AGAP 9; ALBUMIN 3.6 g/dL (3.5-5.0); ALKALINE PHOSPHATASE 55 U/L (32-104); BUN 21 mg/dL (8-22); CALCIUM 8.9 mg/dL (8.8-10.2); CHLORIDE 102 mmol/L (98-107); COSMO 283; CREATININE 0.7 mg/dL (0.5-0.9); ESTIMATED GFR > 60; GLUCOSE 104 mg/dL (70-104); GOT 12 U/L (10-30); GPT 9 U/L (10-36); POTASSIUM 3.5 mmol/L (3.5-5.1); SODIUM 140 mmol/L (136-145); TCO2 28 mmol/L (25-35); TOTAL PROTEIN 5.7 g/dL (6.3-8.3)
[2019-07-14] MEDS ORDERED: PRILOSEC PO SCH (07:00)
[2019-07-14] MEDS: ZITHROMAX PO SCH (09:29)
[2019-07-14] MEDS: MIRALAX PO SCH (09:29)
[2019-07-14] MEDS: DULCOLAX PR SCH (09:29)
[2019-07-14] MEDS ORDERED: NORCO-5 PO PRN (09:41)
[2019-07-14] MEDS: ZYLOPRIM PO SCH (12:43)
[2019-07-14] MEDS: PLAVIX PO SCH (12:43)
[2019-07-14] MEDS: COREG PO SCH ×2 (12:43→21:56)
[2019-07-14] MEDS: NORVASC PO SCH (12:43)
[2019-07-14] MEDS: LASIX PO SCH (12:43)
[2019-07-14] MEDS: SYNTHROID PO SCH (12:45)
[2019-07-14] MEDS: PATIENT'S OWN MED PO SCH (12:45)
[2019-07-14] MEDS: GLUCOPHAGE PO SCH ×2 (14:27→16:07)
--- NOTE | 2019-07-14 14:31 | PROGRESS NOTE ---
DATE: 07/14/2019 SUBJECTIVE: Patient has no new complaints. States she still has cough and congestion, still short of breath, but thinks she is a little bit better than she was on admission. Denies chest pain, palpitations. PHYSICAL EXAMINATION: Temp 98.8, pulse 60, respiratory rate 18, BP 155/70.General: Patient is pleasant. She is in no distress. She is sitting on the side of the bed. HEENT: Normocephalic. Neck: Supple. Cardiovascular: Regular rate. Chest: Clear. Abdomen: Soft. Extremities: Moves all extremities. Neurologic: No changes. ASSESSMENT: 1. Nausea and vomiting. 2. Abdominal pain. 3. Myalgias. 4. Right-sided pneumonia. 5. Moderate constipation. 6. Leukocytosis. 7. Type 2 diabetes. 8. Chronic congestive heart failure, systolic. 9. Atrial fibrillation. 10. Gout. 11. Hypothyroidism. 12. Chronic pain. PLAN: We will continue patient in the hospital, place her on antibiotics, fluids, oxygen, breathing treatments and will follow. cc: Shashank Padilla MD
[2019-07-14] MEDS: LOVENOX SUBQ SCH (16:07)
[2019-07-14] MEDS: ROCEPHIN 1 GM in NS 50 ML IV SCH (16:07)
[2019-07-15] MEDS: HUMALOG (PARKWAY) SUBQ SCH ×4 (06:44→22:01)
[2019-07-15] MEDS: SYNTHROID PO SCH (06:52)
[2019-07-15] MEDS: ZYLOPRIM PO SCH (08:11)
[2019-07-15] MEDS: NORVASC PO SCH (08:11)
[2019-07-15] MEDS: GLUCOPHAGE PO SCH ×2 (08:11→18:19)
[2019-07-15] MEDS: LASIX PO SCH (08:11)
[2019-07-15] MEDS: PLAVIX PO SCH (08:11)
[2019-07-15] MEDS: COZAAR PO SCH (08:11)
[2019-07-15] MEDS: ZITHROMAX PO SCH (08:11)
[2019-07-15] MEDS: MIRALAX PO SCH (08:11)
[2019-07-15] MEDS: COREG PO SCH ×2 (08:12→20:09)
[2019-07-15] MEDS: PATIENT'S OWN MED PO SCH (10:04)
[2019-07-15] MEDS: LOVENOX SUBQ SCH (18:00)
[2019-07-15] MEDS: ROCEPHIN 1 GM in NS 50 ML IV SCH (18:18)
[2019-07-15] MEDS: RESTORIL PO SCH (20:09)
--- NOTE | 2019-07-15 21:37 | PROGRESS NOTE ---
DATE: 07/15/2019 SUBJECTIVE: Patient notes that she is starting to feel better but she is still short of breath. Denies any chest pain, palpitations. PHYSICAL: Temperature 98, pulse 60, respiratory 20, BP elevated at 193/82.General: Patient is awake, she is pleasant. She is in no respiratory distress, sitting up on the side of the bed. HEENT: Normocephalic. Neck: Supple. Cardiovascular: Regular rate. Chest: Decreased but equal. No crackles. No wheezing. Abdomen: Soft, nondistended, obese. Extremities: Moves all extremities. Neuro: No changes. ASSESSMENT: 1. Hypertension. 2. History of atrial fibrillation. 3. Known coronary artery disease. 4. Right bronchopneumonia. 5. Leukocytosis. 6. Chronic gout. PLAN: We are going to increase her blood pressure medications, continue antibiotics, breathing treatments, oxygen. Encourage her to get out of bed and sit in the chair, encouraged ambulation with help. Hopefully she can discharge home over the next 2 or 3 days. cc: Shashank Padilla MD
[2019-07-16] MEDS: SYNTHROID PO SCH (06:15)
[2019-07-16] MEDS: HUMALOG (PARKWAY) SUBQ SCH ×4 (06:17→21:12)
[2019-07-16] MEDS: NORVASC PO SCH ×2 (08:08→21:12)
[2019-07-16] MEDS: GLUCOPHAGE PO SCH ×2 (08:08→16:51)
[2019-07-16] MEDS: COZAAR PO SCH ×2 (08:09→21:12)
[2019-07-16] MEDS: ZITHROMAX PO SCH (08:09)
[2019-07-16] MEDS: ZYLOPRIM PO SCH (08:09)
[2019-07-16] MEDS: LASIX PO SCH (08:09)
[2019-07-16] MEDS: PLAVIX PO SCH (08:09)
[2019-07-16] MEDS: MIRALAX PO SCH (08:10)
[2019-07-16] MEDS: COREG PO SCH ×2 (08:10→21:12)
[2019-07-16] MEDS: PATIENT'S OWN MED PO SCH (11:45)
[2019-07-16] MEDS: DUONEB (A & A) INH SCH ×4 (12:06→22:57)
[2019-07-16 13:14] LABS: BASO# 0.04 X1000 (0.0-0.2); BASO% 0.6 % (0.0-0.8); EOS% 3.1 % (0.0-10.0); HEMATOCRIT 39.7 % (37.0-47.0); HEMOGLOBIN 12.2 g/dL (12.0-16.0); IMM GRAN# 0.02 X1000 (0.0-0.04); IMM GRAN% 0.3 % (0.0-0.5); LYMPH# 1.37 X1000 (1.2-3.4); LYMPH% 21.5 % (20.5-51.1); MCH 27.7 PG (27-31); MCHC 30.7 g/dL (33-37); MONO# 0.53 X1000 (0.11-0.59); MONO% 8.3 % (1.7-9.3); MPV 9.3 FL (7.4-10.4); NEUT# 4.22 X1000 (1.4-6.5); NEUT% 66.2 % (42.2-75.2); PLT 291 X1000 (130-400); RBC 4.41 XMIL (4.2-5.4); RDW 13.6 % (11.5-14.5); WBC 6.38 X1000 (4.8-10.8)
[2019-07-16 13:17] LABS: AGAP 13; BUN 22 mg/dL (8-22); CHLORIDE 101 mmol/L (98-107); COSMO 287; CREATININE 0.8 mg/dL (0.5-0.9); ESTIMATED GFR > 60; GLUCOSE 101 mg/dL (70-104); POTASSIUM 4.1 mmol/L (3.5-5.1); SODIUM 142 mmol/L (136-145); TCO2 29 mmol/L (25-35)
--- NOTE | 2019-07-16 14:31 | PROGRESS NOTE ---
DATE: 07/16/2019 SUBJECTIVE: The patient reports breathing better. Denies any fever or chills. OBJECTIVE: Vital Signs: Temperature 97.4, heart rate is 83, respiratory rate 20, blood pressure is 212/96, O2 saturation is 91% on room air. General: This is a 73-year-old, female lying in bed in no acute distress. Cardiovascular: S1, S2 heard. No murmurs, gallops or rubs. Regular rate and rhythm. Respiratory: Clear bilaterally to auscultation. No work of breathing or use of accessory muscles. Abdomen: Soft, nontender to palpation. Bowel sounds present. No organomegaly. Extremities: No clubbing, cyanosis or edema. Peripheral pulses present in both legs. Neurological: The patient alert and oriented x3. Moves all 4 extremities. LABORATORY DATA: Reviewed. ASSESSMENT: 1. Right bronchopneumonia. 2. Uncontrolled hypertension. 3. Chronic gout. PLAN: At this point the patient continues to be on antibiotics for this right bronchopneumonia. The patient is receiving azithromycin and ceftriaxone. We will continue with the same management. Her blood pressure is high so we are going to increase the doses of amlodipine and losartan and see how the patient does. Currently she is also taking Coreg 25 mg p.o. b.i.d. We will continue with the same management. We have not checked any labs from the last few days and we are going to check those today. We will continue to monitor this patient closely. If blood pressure is okay tomorrow, as well as white cell count I think she could be discharged tomorrow. cc: Marcell Hernandez MD
[2019-07-16] MEDS ORDERED: APRESOLINE IV PRN (15:06)
[2019-07-16] MEDS: ROCEPHIN 1 GM in NS 50 ML IV SCH (16:51)
[2019-07-16] MEDS: RESTORIL PO SCH (21:12)
[2019-07-17] MEDS: DUONEB (A & A) INH SCH ×5 (03:21→20:10)
[2019-07-17] MEDS: HUMALOG (PARKWAY) SUBQ SCH ×4 (06:19→20:58)
[2019-07-17] MEDS: SYNTHROID PO SCH (06:20)
[2019-07-17 06:24] LABS: BASO# 0.05 X1000 (0.0-0.2); BASO% 0.9 % (0.0-0.8); EOS# 0.14 X1000 (0.0-0.7); EOS% 2.5 % (0.0-10.0); HEMATOCRIT 38.7 % (37.0-47.0); HEMOGLOBIN 11.7 g/dL (12.0-16.0); IMM GRAN# 0.02 X1000 (0.0-0.04); IMM GRAN% 0.4 % (0.0-0.5); LYMPH# 1.19 X1000 (1.2-3.4); MCH 27.1 PG (27-31); MCHC 30.2 g/dL (33-37); MCV 89.6 FL (81-99); MONO# 0.52 X1000 (0.11-0.59); MONO% 9.2 % (1.7-9.3); MPV 9.2 FL (7.4-10.4); NEUT# 3.74 X1000 (1.4-6.5); PLT 273 X1000 (130-400); RBC 4.32 XMIL (4.2-5.4); RDW 13.6 % (11.5-14.5); WBC 5.66 X1000 (4.8-10.8)
[2019-07-17 06:31] LABS: AGAP 11; BUN 24 mg/dL (8-22); CALCIUM 9.8 mg/dL (8.8-10.2); CHLORIDE 101 mmol/L (98-107); COSMO 287; CREATININE 0.7 mg/dL (0.5-0.9); ESTIMATED GFR > 60; GLUCOSE 102 mg/dL (70-104); POTASSIUM 3.9 mmol/L (3.5-5.1); SODIUM 142 mmol/L (136-145); TCO2 30 mmol/L (25-35)
[2019-07-17] MEDS: ZITHROMAX PO SCH (08:10)
[2019-07-17] MEDS: ZYLOPRIM PO SCH (08:10)
[2019-07-17] MEDS: GLUCOPHAGE PO SCH ×2 (08:10→16:43)
[2019-07-17] MEDS: PLAVIX PO SCH (08:10)
[2019-07-17] MEDS: COREG PO SCH ×2 (08:10→20:58)
[2019-07-17] MEDS: NORVASC PO SCH ×2 (08:11→20:59)
[2019-07-17] MEDS: MIRALAX PO SCH (08:11)
[2019-07-17] MEDS: LASIX PO SCH (08:11)
[2019-07-17] MEDS: COZAAR PO SCH ×2 (08:11→20:58)
[2019-07-17] MEDS: PATIENT'S OWN MED PO SCH (10:41)
--- NOTE | 2019-07-17 12:16 | PROGRESS NOTE ---
DATE: 07/17/2019 SUBJECTIVE: Patient reports feeling fine. She is very concerned about her blood pressure because blood pressure has been still high. OBJECTIVE: Vital Signs: Temperature 97.8 degrees, heart rate 66, respiratory rate 18, blood pressure 151/95. O2 saturation 94% on room air. General: This is a 73-year-old female lying in bed in no acute distress. Cardiovascular: S1, S2 heard. No murmurs, gallops, or rubs. Regular rate and rhythm. Respiratory: Clear bilaterally to auscultation. No work of breathing or using accessory muscles. Abdomen: Soft. Nontender to palpation. Bowel sounds present. No organomegaly. Extremities: No clubbing, cyanosis, or edema. Peripheral pulses present in both legs. Neurological: Patient alert oriented x3. Moves 4 extremities. LABORATORY DATA: Reviewed. ASSESSMENT AND PLAN: 1. Right bronchopneumonia. 2. Uncontrolled hypertension. PLAN: At this point, the blood pressures are still not under control. We have increased the doses of amlodipine and losartan, but blood pressure is still high so I am planning to keep this patient 24 more hours to monitor her closely. We will continue with current antibiotics. In this case, azithromycin and ceftriaxone. His white cell count is back to normal. We will continue to monitor this patient closely. If her labs and blood pressure are better, we can discharge this patient tomorrow. cc: Marcell Hernandez MD MTDD
[2019-07-17] MEDS: ROCEPHIN 1 GM in NS 50 ML IV SCH (16:43)
[2019-07-17] MEDS: RESTORIL PO SCH (20:58)
[2019-07-17] MEDS ORDERED: CATAPRES PO SCH (23:15)
[2019-07-18] MEDS: DUONEB (A & A) INH SCH ×4 (00:05→10:54)
[2019-07-18] MEDS: HUMALOG (PARKWAY) SUBQ SCH ×2 (06:45→11:38)
[2019-07-18] MEDS: SYNTHROID PO SCH (06:45)
[2019-07-18 06:47] LABS: BASO# 0.05 X1000 (0.0-0.2); BASO% 0.9 % (0.0-0.8); EOS# 0.17 X1000 (0.0-0.7); HEMATOCRIT 39.1 % (37.0-47.0); HEMOGLOBIN 11.9 g/dL (12.0-16.0); IMM GRAN# 0.03 X1000 (0.0-0.04); IMM GRAN% 0.5 % (0.0-0.5); LYMPH# 1.22 X1000 (1.2-3.4); LYMPH% 21.4 % (20.5-51.1); MCH 27.1 PG (27-31); MCHC 30.4 g/dL (33-37); MCV 89.1 FL (81-99); MONO# 0.53 X1000 (0.11-0.59); MONO% 9.3 % (1.7-9.3); NEUT# 3.71 X1000 (1.4-6.5); NEUT% 64.9 % (42.2-75.2); PLT 287 X1000 (130-400); RBC 4.39 XMIL (4.2-5.4); RDW 13.5 % (11.5-14.5); WBC 5.71 X1000 (4.8-10.8)
[2019-07-18 07:25] VITALS: BP 160/84
[2019-07-18 07:30] LABS: POTASSIUM 3.6 mmol/L (3.5-5.1); SODIUM 143 mmol/L (136-145)
[2019-07-18 07:31] LABS: AGAP 12; BUN 21 mg/dL (8-22); CALCIUM 9.5 mg/dL (8.8-10.2); CHLORIDE 102 mmol/L (98-107); COSMO 288; CREATININE 0.7 mg/dL (0.5-0.9); GLUCOSE 95 mg/dL (70-104); TCO2 29 mmol/L (25-35)
[2019-07-18] MEDS: NORVASC PO SCH (08:15)
[2019-07-18] MEDS: ZYLOPRIM PO SCH (08:15)
[2019-07-18] MEDS: LASIX PO SCH (08:15)
[2019-07-18] MEDS: ZITHROMAX PO SCH (08:15)
[2019-07-18] MEDS: GLUCOPHAGE PO SCH (08:15)
[2019-07-18] MEDS: COZAAR PO SCH (08:15)
[2019-07-18] MEDS: COREG PO SCH (08:16)
[2019-07-18] MEDS: PLAVIX PO SCH (08:16)
[2019-07-18] MEDS: MIRALAX PO SCH (08:16)
[2019-07-18] MEDS: PATIENT'S OWN MED PO SCH (10:26)
--- NOTE | 2019-07-20 20:14 | DISCHARGE SUMMARY ---
ADMISSION DATE: 07/13/2019 DISCHARGE DATE: 07/18/2019 ADMISSION DIAGNOSES: 1. Right bronchopneumonia. 2. Moderate constipation. 3. Leukocytosis secondary to #1. 4. Diabetes mellitus type 2. 5. Systolic heart failure. 6. Atrial fibrillation. 7. Hypothyroidism. 8. Chronic kidney disease in a patient with renal artery stenosis with stent. 9. Chronic pain. DISCHARGE DIAGNOSES: 1. Right bronchopneumonia. 2. Uncontrolled hypertension. CONSULTATIONS: None. SURGERIES AND PROCEDURES: None. HOSPITAL COURSE: Ms. Trinh Hazel is a 73-year-old female with medical history of hypertension, systolic heart failure, diabetes, CKD, hypothyroidism, presented with complaints of nausea, fever, and generalized weakness. Apparently, had been present for at least 2 to 3 days prior to presentation to the ER at [place], but it was worse the morning she presented. She has also had constipation, had a bowel movement that morning, but it was very small. She had a decrease in her appetite. Denied chest pain, palpitations, or vomiting. Imaging, the chest x- ray revealed she had a bronchopneumonia in the right lung base. The abdominal x-ray showed moderate constipation, but no obstruction. She was treated with Rocephin and azithromycin. For the constipation, she was given suppositories and MiraLAX. Eventually, her blood pressure was treated as well. She is on amlodipine, losartan. Once blood pressure stabilized, she was discharged home. DISCHARGE VITAL SIGNS: Temperature 97.7 degrees, heart rate 62, respiratory rate 16, blood pressure 160/84, O2 saturation 92% on room air. LABORATORY DATA: White blood cells 5000, hemoglobin 11, hematocrit 39, platelet count 287,000. Sodium 143, potassium 3.6, BUN 21, creatinine 0.7, glucose 87, calcium 9.5. Blood cultures negative. IMAGING: Chest x-ray, right lung base bronchopneumonia. Abdominal x-ray, moderate constipation. No EKG, but telemetry strip showed sinus rhythm. DISCHARGE MEDICATIONS: 1. Cefdinir 300 mg p.o. twice daily. 2. Cozaar 50 mg p.o. twice daily. 3. Norvasc 5 mg p.o. twice daily. 4. Plavix 75 mg p.o. daily. 5. Levothyroxine sodium 150 mcg p.o. daily. 6. Lasix 40 mg p.o. daily. 7. Multivitamin p.o. daily. 8. [place] 1/2 to to 1 tablet p.o. twice daily p.r.n. 9. Metformin 500 mg p.o. twice daily. 10. Coreg 25 mg p.o. twice daily. 11. Allopurinol 100 mg p.o. daily. 12. Restoril 30 mg p.o. nightly. DISCHARGE DIET: Heart healthy. DISCHARGE ACTIVITY: As tolerated. DISCHARGE INSTRUCTIONS: Keep a blood pressure log of the blood pressure to follow up with Dr. Padilla. Take all medications as prescribed for the pneumonia and take medications to help with the constipation. DISCHARGE DISPOSITION: Home. Dictated by NIMISHA Martinez for Marcell Hernandez MD Addendum: Patient seen and examined by myself. Agree with NIMISHA note. It reflects my assessment and plan. Patient is being discharged in stable condition. Follow up with PCP in a week. cc: NIMISHA Martinez MD [facility]
== END 2019-07-18 12:00 | disposition home or self-care (01) | DRG 194 ==
LOC: P.ED 14:32 → SUATTDRO 16:50 → P.MEDSURG 16:50
PROVIDERS: ATTEND Internal Medicine

== ENCOUNTER 2019-08-16 10:00 | Inpatient (IN) ==
[2019-08-16 11:13] LABS: BASO# 0.04 X1000 (0.0-0.2); BASO% 0.4 % (0.0-0.8); EOS# 0.08 X1000 (0.0-0.7); EOS% 0.8 % (0.0-10.0); HEMATOCRIT 39.1 % (37.0-47.0); HEMOGLOBIN 12.2 g/dL (12.0-16.0); IMM GRAN# 0.02 X1000 (0.0-0.04); IMM GRAN% 0.2 % (0.0-0.5); LYMPH# 0.87 X1000 (1.2-3.4); LYMPH% 8.4 % (20.5-51.1); MCH 27.7 PG (27-31); MCHC 31.2 g/dL (33-37); MCV 88.9 FL (81-99); MONO# 0.79 X1000 (0.11-0.59); MONO% 7.6 % (1.7-9.3); MPV 8.8 FL (7.4-10.4); NEUT# 8.58 X1000 (1.4-6.5); NEUT% 82.6 % (42.2-75.2); PLT 222 X1000 (130-400); RDW 13.7 % (11.5-14.5); WBC 10.38 X1000 (4.8-10.8)
[2019-08-16 11:25] LABS: INFLUENZA A NEGATIVE (NEGATIVE); INFLUENZA B NEGATIVE (NEGATIVE)
[2019-08-16 11:29] LABS: INR 0.98; PROTIME 13.5 Seconds (11.0-16.0)
[2019-08-16 11:31] LABS: AGAP 12; ALKALINE PHOSPHATASE 63 U/L (32-104); BUN 19 mg/dL (8-22); CALCIUM 8.8 mg/dL (8.8-10.2); CHLORIDE 104 mmol/L (98-107); CK PROFILE 37 U/L (24-173); COSMO 286; CREATININE 0.8 mg/dL (0.5-0.9); ESTIMATED GFR > 60; GLUCOSE 110 mg/dL (70-104); GOT 17 U/L (10-30); GPT 9 U/L (10-36); POTASSIUM 3.9 mmol/L (3.5-5.1); SODIUM 142 mmol/L (136-145); TCO2 26 mmol/L (25-35)
--- NOTE | 2019-08-16 11:31 | Diag Imaging Result Doc PS360 ---
EXAM: CHEST-1 VIEW - 08/16/2019 HISTORY: r/o sepsis TECHNIQUE: Portable chest one view COMPARISON: 07/13/2019 FINDINGS: There is stable cardiomegaly. There is transvenous cardiac pacemaker again seen. There has been interval substantial decrease in infiltrate at the right lung base. There has been interval development of infiltrate at the left midlung which is suspicious for pneumonia. There is no substantial pleural effusion or pneumothorax identified. IMPRESSION: Left midlung infiltrate suspicious for pneumonia. Electronically signed by Tito Altamirano 08/16/2019 11:28 AM
[2019-08-16 11:34] LABS: PTT 36.4 Seconds (22.3-41.8)
--- NOTE | 2019-08-16 11:39 | PROVIDER DOCUMENTATION ---
This chart was entered by iCndy Ang Scribe, acting as scribe for Piyush Wilson MD. HPI-General Adult - General Chief Complaint: Weakness Stated Complaint: WEAK, DIZZY Time Seen by Provider: 08/16/19 11:02 Source: patient Allergies/Adverse Reactions: Patient Allergies Allergy/AdvReac Type Severity Reaction Status Date / Time Sulfa (Sulfonamide Allergy RASH Verified 08/16/19 11:19 Antibiotics) sulfamethoxazole Allergy RASH Verified 08/16/19 11:19 [From Bactrim] trimethoprim [From Bactrim] Allergy RASH Verified 08/16/19 11:19 Home Medications: Home Medication List Medication Instructions Recorded Confirmed Last Taken Type Clopidogrel [Plavix] 75 mg PO DAILY 10/10/12 08/16/19 04/26/19 History 75 MG Furosemide [Lasix] 40 mg PO DAILY 10/10/12 08/16/19 04/26/19 History 40 MG Levothyroxine Sodium [Levoxyl] 150 mcg PO DAILY 10/10/12 08/16/19 04/26/19 History 150 MCG Carvedilol [Coreg] 25 mg PO BID 09/30/15 08/16/19 04/26/19 History 25 MG Metformin [Glucophage] 500 mg PO BID CC 09/30/15 08/16/19 04/26/19 History 500 MG Allopurinol 100 mg PO DAILY 09/01/16 08/16/19 04/26/19 History 100 MG Iron Fum,Ps Cmp/Vit C/Niacin 10 mg PO DAILY 10/12/18 08/16/19 Unknown History [Integra Capsule] Temazepam [Restoril] 30 mg PO QHS 04/27/19 08/16/19 04/26/19 History 15mg Hydrocodone/Acetaminophen 1 ea PO BID PRN 07/14/19 08/16/19 Unknown History [Hydrocodone-Acetamin 5-325 mg] Amlodipine [Norvasc] 5 mg PO BID #60 tab 07/18/19 08/16/19 Unknown Rx - History of Present Illness -Gen Adult Nature of Presenting Problems: Patient is a 73 year old female who presents with nausea, vomiting and weakness. States symptoms started this morning. Denies pain. Location of Pain/Injury: reports: none Quality of Pain: reports: none Severity: reports: mild Onset/Duration: reports: this morning Timing: reports: still present Context/Activities at Onset: reports: light activity Associated Symptoms: reports: nausea, vomiting, weakness Similar Symptoms Previously?: No Recently seen or treated by another doctor?: No Review of Systems - Adult - REVIEW OF SYSTEMS - ADULT Constitutional: reports: no symptoms reported Eyes: reports: no symptoms reported Ears, Nose, Mouth & Throat: reports: no symptoms reported Cardiovascular: reports: no symptoms reported Respiratory: reports: no symptoms reported Gastrointestinal: reports: see HPI, nausea, vomiting. denies: abdominal pain Genitourinary: reports: no symptoms reported Musculoskeletal: reports: see HPI, muscle weakness. denies: back pain, neck pain Integumentary: reports: no symptoms reported Neurological: reports: no symptoms reported Psychiatric: reports: no symptoms reported Endocrine: reports: no symptoms reported Hematologic/Lymphatic: reports: no symptoms reported Allergic/Immunologic: reports: no symptoms reported All Other Systems: Reviewed and Negative Past History - Adult - PAST MEDICAL HISTORY-ADULT Review of Records: reports: Old Records Reviewed, Nursing Assessment Review, Medications Reviewed, Social history reviewed & non-contributory. Major Childhood Illnesses: reports: denies history Cardiovascular: reports: A-Fib, CAD, HTN, [place], pacemaker Respiratory: reports: denies history Gastrointestinal: reports: denies history Obstetrical/Gynecological: reports: denies history Genitourinary: reports: kidney disease Musculoskeletal: reports: arthritis, other (gout) Neurological: reports: denies history Endocrine/Immune: reports: Diabetes, thyroid disorder (hypo) Other Conditions: reports: denies history - PRIOR SURGERIES/PROCEDURES Surgical/Procedure History: reports: appendectomy, cholecystectomy, pacemaker, tonsillectomy, orthopedic (extremity) (shoulder), joint replacement (TKR), other (renal stent) - IMMUNIZATION STATUS Childhood Immunizations: See Nurse Assessment Flu Vaccine: See Nurse Assessment - FAMILY HISTORY Family History: reviewed, not pertinent - SOCIAL HISTORY Smoking: cigarettes (former) Substance Use: denies Physical Exam-General - PHYSICAL EXAM-ADULT Initial Vital Signs Reviewed: Yes - CONSTITUTIONAL General Appearance: alert, no apparent distress. negative: lethargic - HEAD, EARS, NOSE, MOUTH & THROAT HENMT: normocephalic/atraumatic, other (dry mucous membranes). negative: an gioedema - RESPIRATORY Respiratory: chest non-tender, lungs clear, normal breath sounds. negative: wheezing - CARDIOVASCULAR Cardiovascular: regular rate, rhythm, no murmur. negative: tachycardia - GASTROINTESTINAL (ABDOMEN) Abdominal Exam: normal bowel sounds, non tender, soft. negative: rigid - MUSCULOSKELETAL Extremity: non-tender, normal inspection. negative: pedal edema - SKIN Integumentary: normal color, normal turgor, warm/dry. negative: diaphoresis - NEUROLOGIC Neurologic: grossly normal. negative: aphasia, facial droop - PSYCHIATRIC Psych/Mental Status: normal mood/affect, oriented x 3. negative: anxious Progress - PLAN OF CARE/RESULTS Progress/Plan/Lab Results: Vital Signs - 8 hr 08/16/19 10:08 Temperature 101 F H Pulse Rate 75 Respiratory Rate 22 Blood Pressure 171/90 O2 Sat by Pulse Oximetry 89 L Laboratory Results - last 24 hr 08/16/19 10:33 POC Glucose 100 Orders Category Date Time Status Cardiac Monitoring DIRECTED Care 08/16/19 10:29 Active IV Insertion ORDERED Care 08/16/19 10:29 Active Notify MD of + Sepsis Screen NOW Care 08/16/19 10:29 Active Notify Physician As Ordered Care 08/16/19 10:29 Active CHEST-1 VIEW [RAD] Stat Exams 08/16/19 10:29 Taken BLOOD CULTURE [BLDCUL] Stat Lab 08/16/19 10:44 Ordered CBC WITH DIFF [HEME] Stat Lab 08/16/19 10:44 Ordered CK PROFILE [SP CHEM] Stat Lab 08/16/19 10:44 Ordered COMPREHENSIVE METABOLIC PANEL [CHEM] Stat Lab 08/16/19 10:44 Ordered Flu [INFLUENZA SCREEN PL] Stat Lab 08/16/19 10:44 Ordered LACTATE, PLASMA [CHEM] Q3H Lab 08/16/19 10:44 Ordered LACTATE, PLASMA [CHEM] Q3H Lab 08/16/19 13:30 Uncollected LACTATE, PLASMA [CHEM] Q3H Lab 08/16/19 16:30 Uncollected PROTIME WITH INR [COAG] Stat Lab 08/16/19 10:44 Ordered PTT [COAG] Stat Lab 08/16/19 10:44 Ordered TROPONIN T Stat Lab 08/16/19 10:44 Ordered TSH Stat Lab 08/16/19 10:36 Ordered URINALYSIS W/POSS RFLX CULT [URINALYSIS] Stat Lab 08/16/19 10:29 Uncollected Oxygen Device Stat Oth 08/16/19 10:29 Active Result Diagrams: 08/16/19 11:00 08/16/19 11:00 - EKG 1 Time of EKG reading by physician:: 10:38 EKG Read and Signed by:: Piyush Wilson EKG Interpretation (*Must complete 3 of following elements*): Abnormal (septal infarct, age undetermined) Rate: 73 Rhythm: atrial-paced rhythm with prolonged AV conduction [place]: normal QRS: RBB Comments: left anterior fascicular block; bifascicular block; Departure - Departure Date of Disposition Decision: 08/16/19 Time of Disposition Decision: 11:38 DIAGNOSIS: Flu Disposition: HOME 01 Certified Medical Emergency: Emergent Condition: Stable Referrals and Follow-Ups: Shashank Padilla MD [Primary Care Provider] - - Critical Care Note This patient required my direct & personal management of CC.: No Attestation - Physician/ DELMAR Attestation The physician spent face to face time with patient:: Yes Advanced Practice Provider documentation review:: Supervising physician onsite and consulted in the evaluation and care of this patient. The physician did have a face to face encounter with the patient. This chart was documented by the indicated scribe, (Cindy Ang Scribe) and accurately reflects the services I performed and decisions made by me, Piyush Wilson MD, as attested by the provider's signature.
[2019-08-16 11:53] LABS: URINE SOURCE CLEAN CATCH
[2019-08-16] MEDS ORDERED: LEVAQUIN 500 MG/D5W 500 MG/100 ML IVPB IV ONE (12:00)
[2019-08-16 12:03] LABS: BILIRUBIN URINE NEGATIVE (NEGATIVE); BLOOD URINE NEGATIVE (NEGATIVE); COLOR YELLOW; GLUCOSE URINE NEGATIVE (NEGATIVE); KETONE URINE NEGATIVE (NEGATIVE); LEUKOCYTES URINE MODERATE (NEGATIVE); NITRITE URINE NEGATIVE (NEGATIVE); PROTEIN URINE NEGATIVE (NEGATIVE); SP GRAVITY URINE 1.012; TURBIDITY URINE CLEAR (CLEAR); UROBILINOGEN URINE NORMAL (NORMAL)
[2019-08-16 12:05] LABS: UR EPITHELIAL CELLS <10 /HPF (<10); URINE BACTERIA NEGATIVE /HPF; URINE RBC <10 /HPF (<10)
[2019-08-16] MEDS ORDERED: CLINDAMYCIN 900 MG/D5W 900 MG/50 ML IVPB IV SCH (12:45)
[2019-08-16] MEDS ORDERED: NORCO-5 PO PRN (14:55)
[2019-08-16] MEDS ORDERED: TYLENOL PO PRN (14:58)
[2019-08-16] MEDS ORDERED: ZOFRAN IV PRN (14:58)
[2019-08-16] MEDS: CLINDAMYCIN 900 MG/D5W 900 MG/50 ML IVPB IV SCH ×2 (15:21→22:04)
[2019-08-16] MEDS: GLUCOPHAGE PO SCH (16:23)
--- NOTE | 2019-08-16 17:36 | EKG Report ---
Test Performed on : 08/16/2019 10:38:25 AM Test Reason : RN Blood Pressure : / mmHG Vent. Rate : 073 BPM Atrial Rate : 073 BPM P-R Int : 238 ms QRS Dur : 162 ms QT Int : 422 ms P-R-T Axes : 119 -51 -17 degrees QTc Int : 464 ms Atrial-paced rhythm with prolonged AV conduction Right bundle branch block Left anterior fascicular block Bifascicular block Septal infarct , age undetermined Abnormal ECG When compared with ECG of 27-APR-2019 15:15, Electronic atrial pacemaker has replaced Sinus rhythm. Septal infarct is now present T wave inversion less evident in Anterior leads Unconfirmed Result
--- NOTE | 2019-08-16 20:08 | HISTORY AND PHYSICAL ---
CHIEF COMPLAINT: Emesis. HISTORY OF PRESENT ILLNESS: The patient is a 73-year-old female who presented to the emergency department noting that she had gone to bed last night without any difficulty. She had woken up this morning with emesis on herself and on her bed. She apparently had thrown up in the middle of the night and was unaware of such. During evaluation in the ER, she was noted to have an abnormal chest x-ray. SOCIAL HISTORY: The patient is . She is retired, lives at home in [place], does not smoke or drink. ALLERGIES: Sulfa, causing a rash. MEDICATIONS: Plavix 75, Lasix 40, Synthroid 150, Coreg 25 b.i.d., metformin 500 b.i.d., iron, Restoril 30 at bedtime p.r.n., [place] 5 b.i.d. p.r.n., and Norvasc 5 b.i.d. REVIEW OF SYSTEMS: The patient notes that she has a mild cough, but nonproductive. Denies any fevers, chills. Denies dysuria, frequency or urgency. Denies any abdominal pain, constipation, melena or hematochezia. Denies weight loss or skin rashes. She notes that she always has swelling in her hands from her gout and arthritis. She has some swelling in her lower extremities. PAST MEDICAL HISTORY: Significant for atrial fibrillation, known coronary artery disease and hypertension. She has had an NV and a pacemaker placed. History of gout, diabetes, hypothyroidism. PAST SURGICAL HISTORY: She has had an appendectomy, cholecystectomy, pacemaker, tonsillectomy, joint replacement and a renal stent placed. FAMILY HISTORY: Noncontributory. PHYSICAL EXAMINATION: VITAL SIGNS: Reviewed. She is afebrile currently. T-max 101 degrees in the ER, pulse 75, respiratory 22, BP 171/90, saturation 89% on 2 L. GENERAL: The patient is awake. She is pleasant. She is in no current respiratory distress, lying flatly in the bed. HEENT: Normocephalic. NECK: Supple. CARDIOVASCULAR: Regular rate. No murmurs. CHEST: Clear. ABDOMEN: Soft, nondistended. EXTREMITIES: Moves all extremities. NEUROLOGIC: No changes. ASSESSMENT: 1. Pneumonia. 2. Fever. 3. Hypertension. 4. Diabetes. 5. Hypothyroidism. 6. Chronic gouty arthritis. PLAN: We are going to admit her to the hospital, treat her for an aspiration-type pneumonia, given that she has vomited last night and now she has an abnormal chest x-ray. Place her on Levaquin and clindamycin, and will follow. cc: Shashank Padilla MD
[2019-08-16] MEDS: RESTORIL PO SCH (21:11)
[2019-08-16] MEDS: COREG PO SCH (21:11)
[2019-08-16] MEDS: NORVASC PO SCH (21:11)
[2019-08-17] MEDS: CLINDAMYCIN 900 MG/D5W 900 MG/50 ML IVPB IV SCH (06:20)
[2019-08-17] MEDS: SYNTHROID PO SCH (06:20)
[2019-08-17] MEDS: GLUCOPHAGE PO SCH ×2 (09:53→17:26)
[2019-08-17] MEDS: COREG PO SCH ×2 (09:53→20:50)
[2019-08-17] MEDS: NORVASC PO SCH ×2 (09:54→20:50)
[2019-08-17] MEDS: HEMOCYTE PLUS CAPSULE PO SCH (09:54)
[2019-08-17] MEDS: PLAVIX PO SCH (09:54)
[2019-08-17] MEDS: LASIX PO SCH (09:54)
[2019-08-17] MEDS: ZYLOPRIM PO SCH (09:54)
[2019-08-17] MEDS ORDERED: LEVAQUIN 500 MG/D5W 500 MG/100 ML IVPB IV SCH (12:00)
[2019-08-17] MEDS: CLEOCIN PO SCH ×2 (15:49→20:50)
[2019-08-17] MEDS: RESTORIL PO SCH (20:50)
[2019-08-18 03:43] VITALS: BP 173/63
[2019-08-18] MEDS: SYNTHROID PO SCH (06:37)
--- NOTE | 2019-08-18 07:40 | PROGRESS NOTE ---
DATE: 08/17/2019 SUBJECTIVE: Patient notes that she is starting to feel better. She has had no fever. Cough has improved. Denies chills. PHYSICAL EXAMINATION: Vital Signs: Reviewed. T-max yesterday 100. Temperature current today is 97.6, pulse 61, respirations 18, blood pressure 111/49. General: Patient is awake. Currently in no distress. HEENT: Normocephalic. Neck: Supple. Cardiovascular: Regular rate. No murmurs. Chest: Clear. No crackles. No wheezing. Abdomen: Soft. Nondistended. Extremities: Moves all extremities. Neurologic: No changes. ASSESSMENT: 1. Aspiration pneumonia. 2. Fever. 3. Hypertension. 4. Diabetes. 5. Hypothyroidism. 6. Chronic gout. PLAN: We are going to continue the patient in the hospital on antibiotics today. Change clindamycin to p.o. and we will follow. Hopefully, she improves and she can be discharged home tomorrow. cc: Shashank Padilla MD
[2019-08-18] MEDS: COREG PO SCH (08:03)
[2019-08-18] MEDS: GLUCOPHAGE PO SCH (08:03)
[2019-08-18] MEDS: NORVASC PO SCH (08:03)
[2019-08-18] MEDS: LASIX PO SCH (08:03)
[2019-08-18] MEDS: CLEOCIN PO SCH (08:04)
[2019-08-18] MEDS: ZYLOPRIM PO SCH (08:04)
[2019-08-18] MEDS: HEMOCYTE PLUS CAPSULE PO SCH (08:04)
[2019-08-18] MEDS: PLAVIX PO SCH (08:04)
--- NOTE | 2019-08-18 20:07 | DISCHARGE SUMMARY ---
ADMISSION DATE: 08/16/2019 DISCHARGE DATE: 08/18/2019 DISCHARGE DIAGNOSES: 1. Aspiration pneumonia. 2. Fever. 3. Diabetes. 4. Hypertension. 5. Gout. CONSULTATIONS: None. PROCEDURES: None. BRIEF HOSPITAL COURSE: Patient is a 73-year-old female who presented to the emergency department after having vomited in middle of the night. Woke up with fever, cough, and congestion. She was noted to have an abnormal chest x-ray. She was admitted to the hospital, placed on IV clindamycin which she tolerated well. Fever resolved. Her breathing is improved. She is able to ambulate, back to her usual self. She has had no fever for 2 days. Cough is improved. Shortness of breath is improved. DISPOSITION: Patient will be discharged home on clindamycin for a total of 7 day course. She will follow up outpatient in the office in 1 to 2 weeks, sooner if symptoms worsen or return. No other changes made on her chronic home medications, diet, or activity otherwise. Greater 30 minutes spent in total care. cc: Shashank Padilla MD
== END 2019-08-18 09:25 | disposition home or self-care (01) | DRG 179 ==
LOC: P.ED 10:00 → P.MEDSURG 10:01
PROVIDERS: ADMIT Family Medicine; ATTEND Family Medicine

== ENCOUNTER 2019-11-03 07:42 | Inpatient (IN) ==
[2019-11-03] MEDS ORDERED: TYLENOL PO ONE (07:54)
--- NOTE | 2019-11-03 08:07 | Diag Imaging Result Doc PS360 ---
EXAM: CHEST-1 VIEW 11/03/2019 HISTORY: low 02 sat TECHNIQUE: Erect AP portable at 0656 COMMENT: There is coarse alveolar opacity throughout the right lung. The opacity which was present on 08/16/2019 on the left side has resolved but the right-sided opacities were not present previously and there is volume loss on the right with shift of the mediastinum to the right. The heart size is enlarged. IMPRESSION: Right upper middle and lower lobe pneumonia and atelectasis. Electronically signed by Gustavo Estrada 11/03/2019 8:04 AM
[2019-11-03] MEDS ORDERED: ZOSYN 3.375 GM in NS 50 ML IV ONE (08:13)
[2019-11-03 08:14] LABS: BE 2.6 mmoll (-3.0-3.0); BLOOD TYPE ARTERIAL; HCO3-(ACT) 26.6 mmoll (20.0-26.0); METHB 1.2 % (0.0-1.5); O2(CT) 15.3 mL/dL (15.0-23.0); PCO2(98.6) 41 mmHg (35-45); SAMPLE BLOOD; SAO2 87.8 % (95.0-100.0); THB 12.9 g/dL (11.5-17.4); pH(98.6) 7.43 (7.35-7.45)
[2019-11-03 08:16] LABS: ALLEN TEST YES; MODALITY ROOM AIR
[2019-11-03 08:17] LABS: O2HB 84.4 % (95.0-99.0); PO2(98.6) 49 mmHg (60-100)
--- NOTE | 2019-11-03 08:19 | PROVIDER DOCUMENTATION ---
HPI-Respiratory General - General Chief Complaint: Flu Symptoms Stated Complaint: VOMITING Time Seen by Provider: 11/03/19 08:11 Source: patient Allergies/Adverse Reactions: Patient Allergies Allergy/AdvReac Type Severity Reaction Status Date / Time Sulfa (Sulfonamide Allergy RASH Verified 11/03/19 08:55 Antibiotics) Home Medications: Home Medication List Medication Instructions Recorded Confirmed Last Taken Type Clopidogrel [Plavix] 75 mg PO DAILY 10/10/12 11/03/19 04/26/19 History 75 MG Furosemide [Lasix] 40 mg PO DAILY 10/10/12 11/03/19 04/26/19 History 40 MG Levothyroxine Sodium [Levoxyl] 150 mcg PO DAILY 10/10/12 11/03/19 04/26/19 History 150 MCG Carvedilol [Coreg] 25 mg PO BID 09/30/15 11/03/19 04/26/19 History 25 MG Metformin [Glucophage] 500 mg PO BID CC 09/30/15 11/03/19 04/26/19 History 500 MG Allopurinol 100 mg PO DAILY 09/01/16 11/03/19 04/26/19 History 100 MG Iron Fum,Ps Cmp/Vit C/Niacin 10 mg PO DAILY 10/12/18 11/03/19 Unknown History [Integra Capsule] Temazepam [Restoril] 30 mg PO QHS 04/27/19 11/03/19 04/26/19 History 15 mg Hydrocodone/Acetaminophen 1 ea PO BID PRN 07/14/19 11/03/19 Unknown History [Hydrocodone-Acetamin 5-325 mg] Amlodipine [Norvasc] 5 mg PO BID #60 tab 07/18/19 11/03/19 Unknown Rx - History of Present Illness-Resp Nature of Presenting Problem: fine yesterday 6 am vomited up a vegetable soup flulike symptoms Quality of Pain: reports: aching Severity in ED: reports: mild Onset/Duration: reports: 1-3 hours ago Timing: reports: still present Context: denies: recent foreign travel Exposure: reports: unknown cause Episode Frequency: occasional episodes Modifying Factors: improves with: nothing Associated Symptoms: reports: cough, flu-like symptoms, short of breath Similar Symptoms Previously?: Yes Recently seen or treated by another doctor?: Yes Review of Systems - Adult - REVIEW OF SYSTEMS - ADULT Constitutional: reports: chills, fever Eyes: reports: no symptoms reported Ears, Nose, Mouth & Throat: reports: no symptoms reported Cardiovascular: reports: no symptoms reported Respiratory: reports: cough Gastrointestinal: reports: nausea, vomiting Genitourinary: reports: no symptoms reported Musculoskeletal: reports: joint pain, muscle aches Integumentary: reports: no symptoms reported Neurological: reports: no symptoms reported Psychiatric: reports: no symptoms reported Endocrine: reports: no symptoms reported Hematologic/Lymphatic: reports: no symptoms reported Allergic/Immunologic: reports: no symptoms reported Past History - Adult - PAST MEDICAL HISTORY-ADULT Review of Records: reports: Nursing Assessment Review, Medications Reviewed, Social history reviewed & non-contributory. Major Childhood Illnesses: reports: denies history Cardiovascular: reports: A-Fib, CAD, HTN, MT, pacemaker Respiratory: reports: denies history Gastrointestinal: reports: denies history Obstetrical/Gynecological: reports: denies history Genitourinary: reports: kidney disease Musculoskeletal: reports: arthritis, other (gout) Neurological: reports: denies history Endocrine/Immune: reports: Diabetes, thyroid disorder (hypo) Other Conditions: reports: denies history - PRIOR SURGERIES/PROCEDURES Surgical/Procedure History: reports: appendectomy, cholecystectomy, pacemaker, tonsillectomy, orthopedic (extremity) (shoulder), joint replacement (TKR), other (renal stent) - IMMUNIZATION STATUS Childhood Immunizations: See Nurse Assessment Flu Vaccine: See Nurse Assessment - FAMILY HISTORY Family History: reviewed, not pertinent Physical Exam-General - PHYSICAL EXAM-ADULT Initial Vital Signs Reviewed: Yes - CONSTITUTIONAL General Appearance: appears well, alert, no apparent distress - EYES Eyes: PERRL/EOMI - HEAD, EARS, NOSE, MOUTH & THROAT HENMT: normocephalic/atraumatic, moist mucous membranes, normal ENT inspection, TMs normal, pharynx normal, other (uvula removed) - NECK Neck: supple - RESPIRATORY Respiratory: no respiratory distress, no accessory muscle use, decreased breath sounds - CARDIOVASCULAR Cardiovascular: normal peripheral pulses, regular rate, rhythm - GASTROINTESTINAL (ABDOMEN) Abdominal Exam: soft - LYMPHATIC Lymphatic: no adenopathy - MUSCULOSKELETAL Back Exam: normal inspection Extremity: normal range of motion Peripheral Pulses: radial (R): 1+, radial (L): 1+ - SKIN Integumentary: normal color, normal turgor - NEUROLOGIC Neurologic: grossly normal - PSYCHIATRIC Psych/Mental Status: oriented x 3 Progress - PLAN OF CARE/RESULTS Progress/Plan/Lab Results: Vital Signs - 8 hr 11/03/19 07:45 11/03/19 07:55 11/03/19 08:05 Temperature 100.8 F H Pulse Rate 76 Respiratory Rate 18 Blood Pressure 160/82 O2 Sat by Pulse Oximetry 90 L 87 L 96 11/03/19 08:46 11/03/19 08:47 Temperature Pulse Rate 77 75 Respiratory Rate 25 H 27 H Blood Pressure 168/85 168/85 O2 Sat by Pulse Oximetry 97 97 Laboratory Results - last 24 hr 11/03/19 11/03/19 11/03/19 07:45 07:45 08:00 WBC RBC Hgb Hct MCV MCH MCHC RDW Std Deviation Plt Count MPV Immature Gran % (Auto) Neut % (Auto) Lymph % (Auto) [place] % (Auto) Eos % (Auto) Baso % (Auto) Immature Gran # (Auto) Neut # (Auto) Lymph # (Auto) [place] # (Auto) Eos # (Auto) Baso # (Auto) Segmented Neutrophils Lymphocytes Monocytes PT INR PTT (Actin FS) Specimen Type ARTERIAL Sample Site R RADIAL pH 7.43 pCO2 41 pO2 49 L* HCO3 26.6 H Base Excess 2.6 Oxyhemoglobin 84.4 L* ABG O2 Sat (Calculated) 15.3 ABG O2 Saturation 87.8 L ABG Carboxyhemoglobin 2.70 H ABG Methemoglobin 1.2 Ilir Test YES A-a O2 Difference 49.0 Total Hemoglobin 12.9 Lactate 0.70 Blood Gas Modality ROOM AIR FiO2 % 21.0 Sodium Potassium Chloride Carbon Dioxide Anion Gap BUN Creatinine Estimated GFR/1.73 m2 BUN/Creatinine Ratio Glucose Calculated Osmolality Calcium Total Bilirubin AST ALT Alkaline Phosphatase Creatine Kinase Troponin T High Sens Total Protein Albumin Globulin Albumin/Globulin Ratio Plasma Lactate Influenza A (Rapid) NEGATIVE Influenza B (Rapid) NEGATIVE Group A Strep Rapid NEGATIVE 11/03/19 11/03/19 11/03/19 08:00 08:00 08:00 WBC 9.96 RBC 4.48 Hgb 12.2 Hct 39.2 MCV 87.5 MCH 27.2 MCHC 31.1 L RDW Std Deviation 14.1 Plt Count 245 MPV 8.8 Immature Gran % (Auto) 0.1 Neut % (Auto) 87.8 H Lymph % (Auto) 6.2 L [place] % (Auto) 5.0 Eos % (Auto) 0.5 Baso % (Auto) 0.4 Immature Gran # (Auto) 0.01 Neut # (Auto) 8.74 H Lymph # (Auto) 0.62 L [place] # (Auto) 0.50 Eos # (Auto) 0.05 Baso # (Auto) 0.04 Segmented Neutrophils 90 H Lymphocytes 6 L Monocytes 4 PT INR PTT (Actin FS) Specimen Type Sample Site pH pCO2 pO2 HCO3 Base Excess Oxyhemoglobin ABG O2 Sat (Calculated) ABG O2 Saturation ABG Carboxyhemoglobin ABG Methemoglobin Ilir Test A-a O2 Difference Total Hemoglobin Lactate Blood Gas Modality FiO2 % Sodium 141 Potassium 3.8 Chloride 102 Carbon Dioxide 24 L Anion Gap 16 BUN 17 Creatinine 0.7 Estimated GFR/1.73 m2 > 60 BUN/Creatinine Ratio 24 Glucose 108 H Calculated Osmolality 283 Calcium 8.9 Total Bilirubin 0.40 AST 20 ALT 12 Alkaline Phosphatase 58 Creatine Kinase 55 Troponin T High Sens 39 H Total Protein 6.1 L Albumin 4.1 Globulin 2.0 Albumin/Globulin Ratio 2.0 Plasma Lactate Influenza A (Rapid) Influenza B (Rapid) Group A Strep Rapid 11/03/19 11/03/19 08:00 08:00 WBC RBC Hgb Hct MCV MCH MCHC RDW Std Deviation Plt Count MPV Immature Gran % (Auto) Neut % (Auto) Lymph % (Auto) [place] % (Auto) Eos % (Auto) Baso % (Auto) Immature Gran # (Auto) Neut # (Auto) Lymph # (Auto) [place] # (Auto) Eos # (Auto) Baso # (Auto) Segmented Neutrophils Lymphocytes Monocytes PT 14.2 INR 1.05 PTT (Actin FS) 28.0 Specimen Type Sample Site pH pCO2 pO2 HCO3 Base Excess Oxyhemoglobin ABG O2 Sat (Calculated) ABG O2 Saturation ABG Carboxyhemoglobin ABG Methemoglobin Ilir Test A-a O2 Difference Total Hemoglobin Lactate Blood Gas Modality FiO2 % Sodium Potassium Chloride Carbon Dioxide Anion Gap BUN Creatinine Estimated GFR/1.73 m2 BUN/Creatinine Ratio Glucose Calculated Osmolality Calcium Total Bilirubin AST ALT Alkaline Phosphatase Creatine Kinase Troponin T High Sens Total Protein Albumin Globulin Albumin/Globulin Ratio Plasma Lactate < 0.2 L Influenza A (Rapid) Influenza B (Rapid) Group A Strep Rapid Orders Category Date Time Status Admit - [facility] Routine AdmDCTranf 11/03/19 09:31 Active Activity - Up with Assistance ORDERED Care 11/03/19 09:31 Active Cardiac Monitoring NOW Care 11/03/19 07:49 Active Elevate Head of Bed DIRECTED Care 11/03/19 09:31 Active Encourage Fluids DIRECTED Care 11/03/19 09:31 Active FSBS/Accucheck Result AC + HS Care 11/03/19 09:39 Active IV Insertion NOW Care 11/03/19 07:49 Completed Intake and Output-Strict Q 8-HR ASSESS Care 11/03/19 09:31 Active NEWS Score 2-4:Order NEWS Lactate Series NOW Care 11/03/19 07:51 Active NEWS Score >or=5:Order NEWS Bundle S.O. NOW Care 11/03/19 08:04 Active Notify Provider of NEWS Score NOW Care 11/03/19 07:49 Active Nursing- Assist w/ IS as order ORDERED Care 11/03/19 09:37 Active Oxygen Therapy- ED Nursing DIRECTED Care 11/03/19 08:38 Active Turn, Cough and Deep Breathe Q2HR Care 11/03/19 09:31 Active Up in Chair TID Care 11/03/19 09:40 Active Vital Signs Order Q 8-HR ASSESS Care 11/03/19 09:31 Active Z-Document. for Tele Applied ORDERED Care 11/03/19 09:37 Completed CHEST-1 VIEW [RAD] Stat Exams 11/03/19 07:49 Completed ABG [RESP] Routine Lab 11/03/19 08:00 Completed BLOOD CULTURE [BLDCUL] Stat Lab 11/03/19 08:01 Ordered CBC WITH DIFF [HEME] Stat Lab 11/03/19 08:00 Completed CBC WITH NO DIFF [HEME] Routine Lab 11/04/19 06:00 Ordered CK PROFILE [SP CHEM] Stat Lab 11/03/19 08:00 Completed COMPREHENSIVE METABOLIC PANEL [CHEM] Routine Lab 11/04/19 06:00 Ordered COMPREHENSIVE METABOLIC PANEL [CHEM] Stat Lab 11/03/19 08:[address] Stat Lab 11/03/19 07:45 Completed Flu [INFLUENZA SCREEN PL] Stat Lab 11/03/19 07:45 Completed LACTATE, PLASMA [CHEM] Lab 11/03/19 08:00 Completed PROTIME WITH INR [COAG] Stat Lab 11/03/19 08:00 Completed PTT [COAG] Stat Lab 11/03/19 08:00 Completed TROPONIN T HIGH SENSITIVITY Stat Lab 11/03/19 08:00 Completed URINALYSIS W/POSS RFLX CULT [URINALYSIS] Stat Lab 11/03/19 07:49 Uncollected 0.9% Sodium Chloride Inj [Ns] 1,000 ml Med 11/03/19 09:45 Active IV 75 mls/hr Acetaminophen [Tylenol] Med 11/03/19 07:54 Discontinued 1,000 mg PO NOW ONE Enoxaparin [Lovenox] Med 11/03/19 10:00 Active 40 mg SUBQ Q24H Insulin Lispro ([place]) [Humalog ([place])] Med 11/03/19 11:00 Active See Protocol SUBQ 0700,1100,1600,2100 Levofloxacin 750 mg/D5w [Levaquin 750 mg/D5w] Med 11/03/19 10:00 Active 750 mg in 150 ml IV Q24H Pantoprazole [Protonix] Med 11/03/19 09:45 Active 40 mg PO BID Piperacillin/Tazobactam [Zosyn] 3.375 gm Med 11/03/19 08:13 Discontinued 0.9% Sodium Chloride Inj [Ns] 50 ml IV NOW Piperacillin/Tazobactam [Zosyn] 3.375 gm Med 11/03/19 14:30 Active 0.9% Sodium Chloride Inj [Ns] 50 ml IV Q6H Incentive Spirometer Routine Oth 11/03/19 09:31 Active O2 Per Protocol Stat Oth 11/03/19 07:49 Active Oxygen Device Routine Oth 11/03/19 09:31 Active Pulse Oximetry Routine Oth 11/03/19 09:31 Active Telemetry [OM.EQ] Routine Oth 11/03/19 09:32 Active EKG [EKG] Stat Ther 11/03/19 08:34 Draft Transfer/Admit Order [TRANSFER] Routine Transfer 11/03/19 09:41 Completed Result Diagrams: 11/03/19 08:00 11/03/19 08:00 - EKG 1 Time of EKG reading by physician:: 08:36 EKG Read and Signed by:: Piyush Wilson EKG Interpretation (*Must complete 3 of following elements*): Abnormal Rate: 77 Rhythm: sinus [place]: normal QRS: RBB NE Interval: normal ST Wave: normal Prior EKG Comparison: unchanged from prior - XRAY 1 XRAY: Right XRAY Study: Chest Impression: Abnormal (pneumonia) Departure - Departure Date of Disposition Decision: 11/03/19 Time of Disposition Decision: 12:54 DIAGNOSIS: Pneumonia Disposition: ADMITTED INPATIENT 09 Certified Medical Emergency: Emergent Condition: Stable - Critical Care Note This patient required my direct & personal management of CC.: No Attestation - Physician/ DELMAR Attestation Patient care was provided by Advanced Practice Provider:: No The physician spent face to face time with patient:: Yes Advanced Practice Provider documentation review:: Supervising physician onsite and consulted in the evaluation and care of this patient. The physician did have a face to face encounter with the patient.
[2019-11-03 08:40] LABS: BASO# 0.04 X1000 (0.0-0.2); BASO% 0.4 % (0.0-0.8); EOS# 0.05 X1000 (0.0-0.7); EOS% 0.5 % (0.0-10.0); HEMATOCRIT 39.2 % (37.0-47.0); HEMOGLOBIN 12.2 g/dL (12.0-16.0); IMM GRAN# 0.01 X1000 (0.0-0.04); IMM GRAN% 0.1 % (0.0-0.5); LYMPH# 0.62 X1000 (1.2-3.4); LYMPH% 6.2 % (20.5-51.1); MCH 27.2 PG (27-31); MCHC 31.1 g/dL (33-37); MCV 87.5 FL (81-99); MPV 8.8 FL (7.4-10.4); NEUT# 8.74 X1000 (1.4-6.5); NEUT% 87.8 % (42.2-75.2); PLT 245 X1000 (130-400); RBC 4.48 XMIL (4.2-5.4); RDW 14.1 % (11.5-14.5); WBC 9.96 X1000 (4.8-10.8)
[2019-11-03 08:53] LABS: AGAP 16; ALBUMIN 4.1 g/dL (3.5-5.0); ALKALINE PHOSPHATASE 58 U/L (32-104); BUN 17 mg/dL (8-22); CALCIUM 8.9 mg/dL (8.8-10.2); CHLORIDE 102 mmol/L (98-107); CK PROFILE 55 U/L (24-173); COSMO 283; CREATININE 0.7 mg/dL (0.5-0.9); ESTIMATED GFR > 60; GLUCOSE 108 mg/dL (70-104); GOT 20 U/L (10-30); GPT 12 U/L (10-36); POTASSIUM 3.8 mmol/L (3.5-5.1); SODIUM 141 mmol/L (136-145); TCO2 24 mmol/L (25-35); TOTAL PROTEIN 6.1 g/dL (6.3-8.3)
--- NOTE | 2019-11-03 08:53 | EKG Report ---
Test Performed on : 11/03/2019 08:34:22 AM Test Reason : SOB Blood Pressure : / mmHG Vent. Rate : 077 BPM Atrial Rate : 077 BPM P-R Int : 264 ms QRS Dur : 172 ms QT Int : 428 ms P-R-T Axes : 085 -42 005 degrees QTc Int : 484 ms Atrial-paced rhythm with prolonged AV conduction Left axis deviation Right bundle branch block Abnormal ECG When compared with ECG of 16-AUG-2019 10:38, Criteria for Septal infarct are no longer present Unconfirmed Result
[2019-11-03 08:55] LABS: INFLUENZA A NEGATIVE (NEGATIVE); INFLUENZA B NEGATIVE (NEGATIVE)
[2019-11-03 09:13] LABS: INR 1.05; PROTIME 14.2 Seconds (11.0-16.0)
[2019-11-03 09:31] LABS: SEGS 90 % (42-75)
[2019-11-03 09:32] LABS: LYMPHS 6 % (21-51); MONO 4 % (1-9)
[2019-11-03] MEDS: PROTONIX PO SCH ×2 (10:05→20:29)
[2019-11-03] MEDS: LOVENOX SUBQ SCH (10:06)
[2019-11-03] MEDS: NS 1,000 ML IV SCH (10:08)
[2019-11-03] MEDS: LEVAQUIN 750 MG/D5W 750 MG/150 ML IVPB IV SCH (10:10)
--- NOTE | 2019-11-03 11:01 | HISTORY AND PHYSICAL ---
CHIEF COMPLAINT: Vomiting and shortness of breath. HISTORY OF PRESENT ILLNESS: This is a 74-year-old female with a prior history of diabetes mellitus, atrial fibrillation, coronary artery disease, who presented to the emergency room via EMS after vomiting and then having shortness of breath. She states that she went to bed feeling fine last night. She did eat a bowl of vegetable soup just prior to lying down. She woke up vomiting this morning. Stated that after she vomited, she felt like she could not get any air into her lungs at all. She did note that she coughed and it looked like her vomitus once or twice. On arrival to the emergency room, she had a room air saturation of 87. ABGs, PO2 was 49. Chest x-ray revealed right upper middle and lower lobe pneumonia. PAST MEDICAL HISTORY: 1. Diabetes mellitus. 2. Coronary artery disease status post HI. 3. Atrial fibrillation. 4. History of gout. 5. Hypothyroid. PAST SURGICAL HISTORY: 1. Appendectomy. 2. Cholecystectomy. 3. Pacemaker placement. 4. Tonsillectomy. 5. Joint replacement. FAMILY HISTORY: Positive for hypertension and coronary artery disease. SOCIAL HISTORY: She denies any alcohol, tobacco, or illicit drug use. She is retired. REVIEW OF SYSTEMS: Discussed with patient with pertinent positives stated in the HPI. She denied any syncope or dizziness, any chest pain or palpitations, any fevers or chills, any night sweats, PND, orthopnea, any nausea, diarrhea, constipation, black or bloody vomitus or stools, any hematuria, dysuria, frequency, urgency. PHYSICAL EXAMINATION: GENERAL: This is a 74-year-old female who is lying on the stretcher in the emergency room in no distress. VITAL SIGNS: Blood pressure is 125/66 with a heart rate of 69, respirations are 20 to 22, temperature is 99.5 degrees oral with O2 saturations 93 to 97 percent on 2 L nasal cannula. HEENT: Pupils are equal, round, react to light. EOMs are intact. Sclerae are anicteric. Head is normocephalic, atraumatic. Mucous membranes are moist. NECK: Supple. Trachea midline. No JVD. CARDIOVASCULAR: Regular rate and rhythm. S1 and S2 appreciated. She has no lower extremity edema. Denies calf tenderness with peripheral pulses palpable x4 extremities. PULMONARY: Breath sounds are diminished throughout with right side greater than left. She does have some rhonchi that do not clear to cough. Chest rises and falls symmetrically with respiration. Chest wall is nontender to palpation. GASTROINTESTINAL: Abdomen is soft, nontender, nondistended with bowel sounds in all 4 quadrants. GENITOURINARY: No CVA or suprapubic tenderness. NEUROLOGIC: She is alert and oriented x3. SKIN: Warm and dry. LABORATORY DATA: WBC is 9.9 with hemoglobin 12.2, hematocrit 39.2, platelets of 245,000. INR is 1.05. Sodium 141, potassium 3.8, BUN 17, creatinine 0.7 with glucose of 108. Troponin T is 39. Lactate is less than 0.2. Influenza A/B and rapid strep are all negative. Chest x-ray reveals right upper middle and lower lobe pneumonia. EKG is an atrial paced rhythm at a rate of 77. ASSESSMENT AND PLAN: 1. Right upper middle and lower lobe pneumonia, presumed aspiration. 2. Acute hypoxemic respiratory failure secondary to #1. 3. History of diabetes mellitus type 2. 4. History of atrial fibrillation. 5. History of hypothyroid. 6. Coronary artery disease status post myocardial infarction and pacemaker placement. 7. Fever. PLAN: 1. The patient will be admitted to the medical-surgical floor at [place] on telemetry. 2. Supplemental oxygen. 3. DuoNebs q.4 hours p.r.n. 4. Antibiotic coverage of Levaquin and Zosyn. 5. IV hydration. 6. Pattern blood glucose with sliding scale insulin. 7. Incentive spirometer every [address] her on reflux precautions, keep the head of the bed elevated greater than 30 degrees at all times. Will instruct her that she has to eat several small meals a day. She is to sit up in the chair to eat and sit in the upright position for at least an hour after eating. 9. Deep venous thrombosis prophylaxis. Lovenox. 10. Gastrointestinal prophylaxis is Protonix b.i.d. The patient was examined and plan was discussed with Dr. Padilla. Further treatments pending hospital course. Dictated by NIMISHA Yu for Shashank Padilla MD cc: NIMISHA Yu MD
[2019-11-03] MEDS: HUMALOG (PARKWAY) SUBQ SCH ×2 (12:27→16:13)
[2019-11-03 13:16] LABS: URINE SOURCE CLEAN CATCH
[2019-11-03 13:25] LABS: BILIRUBIN URINE NEGATIVE (NEGATIVE); BLOOD URINE NEGATIVE (NEGATIVE); COLOR YELLOW; GLUCOSE URINE NEGATIVE (NEGATIVE); KETONE URINE NEGATIVE (NEGATIVE); LEUKOCYTES URINE NEGATIVE (NEGATIVE); NITRITE URINE NEGATIVE (NEGATIVE); PROTEIN URINE TRACE mg/dL (NEGATIVE); TURBIDITY URINE CLEAR (CLEAR); UROBILINOGEN URINE NORMAL (NORMAL)
[2019-11-03 13:27] LABS: UR EPITHELIAL CELLS <10 /HPF (<10); URINE BACTERIA NEGATIVE /HPF; URINE RBC <10 /HPF (<10); URINE WBC <10 /HPF (<10)
[2019-11-03] MEDS: ZOSYN 3.375 GM in NS 50 ML IV SCH ×2 (14:23→20:33)
[2019-11-03] MEDS ORDERED: NORCO-5 PO PRN (19:28)
[2019-11-03] MEDS: COREG PO SCH (20:29)
[2019-11-03] MEDS: NORVASC PO SCH (20:29)
[2019-11-03] MEDS: RESTORIL PO SCH (20:30)
--- NOTE | 2019-11-03 20:55 | HISTORY AND PHYSICAL ---
ADDENDUM: Patient seen and examined by myself. Full note dictated and discussed with nurse practitioner. Patient notes that she ate late last night and went to bed. She awakened this morning coughing and then became short of breath. She is having flu-like symptoms. We are going to admit her, treat her for aspiration pneumonia, restart her home medications and we will follow. cc: Shashank Padilla MD
[2019-11-04] MEDS: NS 1,000 ML IV SCH ×2 (01:15→16:25)
[2019-11-04] MEDS: ZOSYN 3.375 GM in NS 50 ML IV SCH ×4 (02:30→20:30)
[2019-11-04] MEDS: HUMALOG (PARKWAY) SUBQ SCH ×5 (04:52→20:34)
[2019-11-04 06:03] LABS: AGAP 8; ALBUMIN 3.4 g/dL (3.5-5.0); ALKALINE PHOSPHATASE 46 U/L (32-104); BUN 17 mg/dL (8-22); CALCIUM 8.1 mg/dL (8.8-10.2); CHLORIDE 105 mmol/L (98-107); COSMO 279; CREATININE 0.8 mg/dL (0.5-0.9); ESTIMATED GFR > 60; GLUCOSE 91 mg/dL (70-104); GOT 15 U/L (10-30); GPT 10 U/L (10-36); SODIUM 139 mmol/L (136-145); TCO2 26 mmol/L (25-35); TOTAL PROTEIN 5.7 g/dL (6.3-8.3)
[2019-11-04] MEDS: SYNTHROID PO SCH (06:17)
[2019-11-04 06:26] LABS: HEMATOCRIT 35.2 % (37.0-47.0); HEMOGLOBIN 10.9 g/dL (12.0-16.0); MCH 27.8 PG (27-31); MCV 89.8 FL (81-99); MPV 8.9 FL (7.4-10.4); RBC 3.92 XMIL (4.2-5.4); RDW 14.4 % (11.5-14.5); WBC 8.11 X1000 (4.8-10.8)
[2019-11-04] MEDS ORDERED: NORCO-5 PO PRN (06:30)
[2019-11-04] MEDS: GLUCOPHAGE PO SCH ×2 (08:07→17:00)
[2019-11-04] MEDS: PROTONIX PO SCH ×2 (08:07→20:31)
[2019-11-04] MEDS: NORVASC PO SCH ×2 (08:07→20:30)
[2019-11-04] MEDS: LOVENOX SUBQ SCH ×2 (08:07→09:02)
[2019-11-04] MEDS: COREG PO SCH ×2 (08:07→20:30)
[2019-11-04] MEDS: LASIX PO SCH (08:07)
[2019-11-04] MEDS: ZYLOPRIM PO SCH (08:07)
[2019-11-04] MEDS: HEMOCYTE PLUS CAPSULE PO SCH (08:07)
[2019-11-04] MEDS: PLAVIX PO SCH (08:07)
[2019-11-04] MEDS: LEVAQUIN 750 MG/D5W 750 MG/150 ML IVPB IV SCH (09:58)
[2019-11-04] MEDS: RESTORIL PO SCH (20:30)
--- NOTE | 2019-11-04 21:45 | PROGRESS NOTE ---
DATE: 11/04/2019 SUBJECTIVE: Patient notes that she is feeling a lot better, still having some cough and shortness of breath, fevers have improved. PHYSICAL: Temperature 98, pulse 63, respiratory 18, BP 157/76.General: Patient is awake, alert, oriented. She is in no distress. HEENT: Normocephalic. Neck: Supple. CV: Regular rate. Chest: Clear, nonlabored. Abdomen: Soft, nondistended. Extremities: Moves all extremities. Neuro: No changes. ASSESSMENT: 1. Right upper and middle lobe pneumonia. 2. Acute hypoxic respiratory failure. 3. Diabetes. 4. Hypertension. 5. Hypothyroidism. 6. Known coronary artery disease. 7. History of gout. PLAN: Will continue Levaquin, Zosyn, continue her other home medications. If she continues to improve she may be able to discharge in the morning. cc: Shashank Padilla MD
[2019-11-05] MEDS: ZOSYN 3.375 GM in NS 50 ML IV SCH ×4 (04:00→20:37)
[2019-11-05] MEDS: NS 1,000 ML IV SCH ×2 (04:55→07:58)
[2019-11-05] MEDS: SYNTHROID PO SCH (06:00)
[2019-11-05] MEDS: PROTONIX PO SCH ×2 (06:00→20:40)
[2019-11-05] MEDS: HUMALOG (PARKWAY) SUBQ SCH ×4 (07:29→22:10)
[2019-11-05] MEDS: NORVASC PO SCH ×2 (08:00→20:39)
[2019-11-05] MEDS: ZYLOPRIM PO SCH (08:00)
[2019-11-05] MEDS: GLUCOPHAGE PO SCH ×2 (08:00→17:32)
[2019-11-05] MEDS: LASIX PO SCH (08:00)
[2019-11-05] MEDS: COREG PO SCH ×2 (08:00→20:40)
[2019-11-05] MEDS: PLAVIX PO SCH (08:00)
[2019-11-05] MEDS: HEMOCYTE PLUS CAPSULE PO SCH (08:00)
[2019-11-05] MEDS: LOVENOX SUBQ SCH (09:39)
[2019-11-05] MEDS: LEVAQUIN 750 MG/D5W 750 MG/150 ML IVPB IV SCH (09:39)
--- NOTE | 2019-11-05 14:12 | PROGRESS NOTE ---
DATE: 11/05/2019 SUBJECTIVE: Patient has no major complaints. OBJECTIVE: Vital Signs: Blood pressure is 152/74, heart rate was 60, respiratory rate of 18, temperature 98.4 degrees, saturation 93% on 2 L. Cardiovascular: Regular rate and rhythm. Pulmonary: Bilateral breath sounds clear to auscultation. GI: Soft, nontender, nondistended. Bowel sounds are positive. IMPRESSION: 1. Right upper and middle lobe pneumonia. I would consider this to be possibly recurrent. She has had pneumonia in March, June, July and in different lobes, right and left, different and not a consistent infiltrate, so aspiration is definitely a concern. We discussed measures against reflux and we will follow. Repeat chest x-ray tomorrow if improved, may consider going home. However, it does look like she will, and I anticipate, she may need home oxygen. 2. Type 2 diabetes appears to be stable. Continue treatments and follow. 3. Hypoxic respiratory failure. Again, most likely will need oxygen. We will start evaluating for that tomorrow. cc: Stu Vidal MD
[2019-11-05] MEDS: RESTORIL PO SCH (20:40)
[2019-11-05] MEDS ORDERED: CATAPRES PO PRN (22:12)
[2019-11-06] MEDS: ZOSYN 3.375 GM in NS 50 ML IV SCH ×2 (03:14→10:40)
[2019-11-06] MEDS: PROTONIX PO SCH ×2 (05:55→07:26)
[2019-11-06] MEDS: SYNTHROID PO SCH ×2 (05:55→07:27)
--- NOTE | 2019-11-06 06:33 | Diag Imaging Result Doc PS360 ---
CHEST-2 VIEWS - 11/06/2019 INDICATION: f/u on pna COMPARISON: 11/03/2019 FINDINGS: There has been significant improvement in the diffuse heterogeneous infiltrates throughout the right lung. There is some residual infiltrate in the right lung base. The left lung remains clear. Stable cardiomegaly. Stable left-sided dual-chamber pacemaker. IMPRESSION: Significant improvement in the multifocal pneumonia throughout the right lung. Electronically signed by Priyank Saenz 11/06/2019 6:31 AM
[2019-11-06] MEDS: LEVAQUIN 750 MG/D5W 750 MG/150 ML IVPB IV SCH (10:21)
[2019-11-06] MEDS: LOVENOX SUBQ SCH (10:24)
[2019-11-06] MEDS: LASIX PO SCH (10:25)
[2019-11-06] MEDS: ZYLOPRIM PO SCH (10:25)
[2019-11-06] MEDS: GLUCOPHAGE PO SCH (10:25)
[2019-11-06] MEDS: HEMOCYTE PLUS CAPSULE PO SCH (10:25)
[2019-11-06] MEDS: COREG PO SCH (10:26)
[2019-11-06] MEDS: PLAVIX PO SCH (10:26)
[2019-11-06] MEDS: NORVASC PO SCH (10:26)
[2019-11-06] MEDS: HUMALOG (PARKWAY) SUBQ SCH (10:31)
[2019-11-06 12:18] VITALS: BP 190/87
--- NOTE | 2019-11-06 13:52 | DISCHARGE SUMMARY ---
ADMISSION DATE: 11/03/2019 DISCHARGE DATE: 11/06/2019 ADMISSION DIAGNOSES: 1. Right upper and middle lower lobe pneumonia, presumed aspiration. 2. Acute hypoxemic respiratory failure secondary to #1. 3. History of diabetes mellitus type 2. 4. History of atrial fibrillation. 5. History of hypothyroidism. 6. Coronary artery disease with history of post myocardial infarction and pacemaker placement. 7. Fever. DISCHARGE DIAGNOSES: 1. Right upper and middle lobe pneumonia with risk of aspiration. She will be on a mechanical soft diet. 2. Hypoxemic respiratory failure. She was on and off oxygen while she was here. She has been evaluated for home O2, but she was saturating without any problems on room air. 3. Diabetes mellitus type 2, stable. 4. Hypoxemic respiratory failure. Again, she does not need oxygen for discharge. CONSULTATIONS: None. SURGERIES AND PROCEDURES: None. HOSPITAL COURSE: Ms. Trinh Hazel is a 74-year-old female who presented to the emergency department with complaints of vomiting and shortness of breath, having reflux when she was sleeping at night. She was increased on her Protonix, which we will send her home on some. She was found to have right upper and middle lobe pneumonia that was due to aspiration. Speech therapy recommended mechanical soft diet, which she was placed on. She has been on Zosyn while she is here and she will go home on Levaquin and Omnicef. O2 saturations were up and down and would be on and off oxygen, but she has tolerated room air and will go home with room air. DISCHARGE VITAL SIGNS: Temperature 98.4 degrees, heart rate 60, respiratory rate 20, blood pressure 190/87, O2 saturation 96% on room air. LABORATORY DATA: The last time she had labs was on 11/04/2019, white blood cell count 8000, hemoglobin 10, hematocrit 35, platelet count 240,000. Sodium 139, potassium 4.0, BUN 17, creatinine 0.8, glucose is 95 today, calcium was 8.1, bilirubin 0.40, AST 15, ALT 10, albumin 3.4. Urinalysis trace protein. Had IgG levels and IgG is normal. The IgM slightly low. Influenza was negative. Strep was negative. Blood cultures were negative. IMAGIN. Chest x-ray on admission, right upper middle and lower lobe pneumonia with atelectasis. Chest x-ray today on the , significant improvement in the multifocal pneumonia throughout the right lung. 2. EKG atrially paced rhythm, rate 77. DISCHARGE MEDICATIONS: 1. Antibiotics Levaquin 750 mg p.o. daily for 7 days, Omnicef 300 mg p.o. twice daily for 7 days. 2. Protonix 40 mg p.o. daily. 3. Norvasc 5 mg p.o. twice daily. 4. Plavix 75 mg p.o. daily. 5. Synthroid 150 mcg p.o. daily. 6. Lasix 40 mg p.o. daily. 7. Multivitamin once daily. 8. [place] twice daily p.r.n. 9. Metformin 500 mg p.o. twice daily. 10. Coreg 25 mg p.o. twice daily. 11. Allopurinol 100 mg p.o. daily. 12. Restoril 30 mg p.o. nightly. DISCHARGED DIET: Diabetic and mechanical soft, 90 degrees angle for all p.o. intake and not to eat late at night and to sleep at an elevation. ACTIVITY: As tolerated. DISCHARGE PHYSICIAN FOLLOWUP: Dr. Padilla DISCHARGE INSTRUCTIONS: If her condition changes, contact physician and/or return to the emergency department. Changes may include, but not limited to shortness of breath, increased fatigue, excessive bleeding, unexplained weight loss or gain, unmanageable pain, signs or symptoms of infection. Take all medications as prescribed. Make follow-up appointment with the primary care provider. If symptoms persist or become worse call 911 or come to the emergency department. DISCHARGE DISPOSITION: Home. Dictated by NIMISHA Martinez for Shashank Padilla MD cc: NIMISHA Martinez MD
--- NOTE | 2019-11-07 07:28 | DISCHARGE SUMMARY ---
ADMISSION DATE: 11/03/2019 DISCHARGE DATE: 11/06/2019 DISCHARGE ADDENDUM: Patient seen and examined by myself. Full note dictated and discussed with nurse practitioner. On discharge, patient is awake and alert. She is in no distress. She is [*] and in fact her 02 sat is actually up from 92 to 95% on physical exam today. She does have a right middle and right upper lobe pneumonia. We are going to discharge her home on antibiotics. She will follow up in the office in 1 week. cc: Shashank Padilla MD
== END 2019-11-06 13:29 | disposition home or self-care (01) | DRG 177 ==
LOC: P.ED 07:42 → SUATTDRO 10:04 → P.MEDSURG 10:04
PROVIDERS: ATTEND Family Medicine

== ENCOUNTER 2019-11-10 22:17 | Inpatient (IN) ==
[2019-11-10 23:00] LABS: BE 5.6 mmoll (-3.0-3.0); BLOOD TYPE ARTERIAL; HCO3-(ACT) 29.2 mmoll (20.0-26.0); METHB 1.1 % (0.0-1.5); O2HB 93.7 % (95.0-99.0); PCO2(98.6) 41 mmHg (35-45); PO2(98.6) 69 mmHg (60-100); SAMPLE BLOOD; SAO2 96.8 % (95.0-100.0); THB 12.9 g/dL (11.5-17.4); pH(98.6) 7.47 (7.35-7.45)
[2019-11-10 23:03] LABS: ALLEN TEST YES; MODALITY CANNULA
[2019-11-10 23:04] LABS: BASO# 0.05 X1000 (0.0-0.2); BASO% 0.6 % (0.0-0.8); EOS# 0.07 X1000 (0.0-0.7); EOS% 0.8 % (0.0-10.0); HEMATOCRIT 39.9 % (37.0-47.0); HEMOGLOBIN 12.9 g/dL (12.0-16.0); IMM GRAN# 0.03 X1000 (0.0-0.04); IMM GRAN% 0.3 % (0.0-0.5); LYMPH# 1.59 X1000 (1.2-3.4); LYMPH% 17.5 % (20.5-51.1); MCH 27.4 PG (27-31); MCHC 32.3 g/dL (33-37); MCV 84.9 FL (81-99); MONO# 0.77 X1000 (0.11-0.59); MONO% 8.5 % (1.7-9.3); MPV 8.8 FL (7.4-10.4); NEUT# 6.57 X1000 (1.4-6.5); NEUT% 72.3 % (42.2-75.2); PLT 303 X1000 (130-400); RDW 14.1 % (11.5-14.5); WBC 9.08 X1000 (4.8-10.8)
[2019-11-10 23:24] LABS: ALBUMIN 4.4 g/dL (3.5-5.0); CALCIUM 8.8 mg/dL (8.8-10.2); CREATININE 1.3 mg/dL (0.5-0.9); POTASSIUM 2.8 mmol/L (3.5-5.1); TOTAL BILIRUBIN 0.3 mg/dL (0.20-1.00); TOTAL PROTEIN 6.6 g/dL (6.3-8.3)
--- NOTE | 2019-11-11 00:30 | PROVIDER DOCUMENTATION ---
This chart was entered by Heidi Renee Scribe, acting as scribe for Dimitri Jackson MD. HPI-General Adult - General Chief Complaint: Nausea/Vomiting Stated Complaint: N/V/D Time Seen by Provider: 11/10/19 22:20 Source: patient Allergies/Adverse Reactions: Patient Allergies Allergy/AdvReac Type Severity Reaction Status Date / Time Sulfa (Sulfonamide Allergy RASH Verified 11/10/19 22:30 Antibiotics) sulfamethoxazole Allergy Unknown Verified 11/10/19 22:31 [From Bactrim] trimethoprim [From Bactrim] Allergy Unknown Verified 11/10/19 22:31 Home Medications: Home Medication List Medication Instructions Recorded Confirmed Last Taken Type Clopidogrel [Plavix] 75 mg PO DAILY 10/10/12 11/11/19 11/10/19 08:00 History Furosemide [Lasix] 40 mg PO DAILY 10/10/12 11/11/19 11/10/19 08:00 History Levothyroxine Sodium [Levoxyl] 150 mcg PO DAILY 10/10/12 11/11/19 11/10/19 08:00 History Carvedilol [Coreg] 25 mg PO BID 09/30/15 11/11/19 11/10/19 08:00 History Metformin [Glucophage] 500 mg PO BID CC 09/30/15 11/11/19 11/10/19 08:00 History Allopurinol 100 mg PO DAILY 09/01/16 11/11/19 11/10/19 08:00 History Iron Fum,Ps Cmp/Vit C/Niacin 10 mg PO DAILY 10/12/18 11/11/19 11/10/19 08:00 History [Integra Capsule] Temazepam [Restoril] 30 mg PO QHS 04/27/19 11/11/19 11/09/19 21:00 History Hydrocodone/Acetaminophen 1 ea PO BID PRN 07/14/19 11/11/19 11/10/19 08:00 History [Hydrocodone-Acetamin 5-325 mg] Pantoprazole [Protonix] 40 mg PO DAILY #30 tab 11/06/19 11/11/19 11/10/19 08:00 Rx Ondansetron [Zofran] 4 mg PO Q6H PRN PRN #20 tab 11/09/19 11/11/19 11/10/19 21:00 Rx - History of Present Illness -Gen Adult Nature of Presenting Problems: pt is a 74yr yr old female with history of tobacco abuse and recent right sided pneumonia who presents by EMS from home with SOB with oxygen sat in 80's on room air, nausea and vomiting. pt denies any pain, no fever/chills, no diarrhea. pt does admits cough. pt exposed to flu/stomach flu. Location of Pain/Injury: reports: abdomen Pain Radiation: reports: no radiation Quality of Pain: reports: dull Severity: reports: mild Onset/Duration: reports: this morning Timing: reports: still present Context/Activities at Onset: reports: light activity Modifying Factors: improves with: nothing Associated Symptoms: reports: cough, nausea, shortness of breath, vomiting. denies: chest pain, constipation, diarrhea, fever/chills, genitourinary problems, sinus congestion/drainage Similar Symptoms Previously?: No Recently seen or treated by another doctor?: Yes Review of Systems - Adult - REVIEW OF SYSTEMS - ADULT Constitutional: denies: chills, fever Eyes: reports: no symptoms reported Ears, Nose, Mouth & Throat: denies: ear pain, sinus problem, throat pain Cardiovascular: denies: chest pain, palpitations, syncope Respiratory: reports: shortness of breath. denies: cough Gastrointestinal: reports: abdominal pain, frequent heartburn, nausea, vomiting Genitourinary: denies: dysuria, frequency Musculoskeletal: denies: back pain, muscle aches Integumentary: reports: no symptoms reported Neurological: denies: dizziness/vertigo, headache/migraines Psychiatric: reports: no symptoms reported Endocrine: reports: no symptoms reported Hematologic/Lymphatic: reports: no symptoms reported Allergic/Immunologic: reports: no symptoms reported All Other Systems: Reviewed and Negative Past History - Adult - PAST MEDICAL HISTORY-ADULT Review of Records: reports: Old Records Reviewed, Nursing Assessment Review, Medications Reviewed, Social history reviewed & non-contributory. Major Childhood Illnesses: reports: denies history Cardiovascular: reports: A-Fib, CAD, HTN, MS, pacemaker Respiratory: reports: denies history Gastrointestinal: reports: denies history Obstetrical/Gynecological: reports: denies history Genitourinary: reports: kidney disease Musculoskeletal: reports: arthritis, other (gout) Neurological: reports: denies history Endocrine/Immune: reports: Diabetes, thyroid disorder (hypo) Other Conditions: reports: denies history - PRIOR SURGERIES/PROCEDURES Surgical/Procedure History: reports: appendectomy, cholecystectomy, pacemaker, tonsillectomy, orthopedic (extremity) (shoulder), joint replacement (TKR), other (renal stent) - IMMUNIZATION STATUS Childhood Immunizations: See Nurse Assessment Flu Vaccine: See Nurse Assessment - FAMILY HISTORY Family History: reviewed, not pertinent - SOCIAL HISTORY Smoking: quit greater than 1 year (10yrs) Substance Use: denies Living Situation: family Physical Exam-General - PHYSICAL EXAM-ADULT Initial Vital Signs Reviewed: Yes - CONSTITUTIONAL General Appearance: appears well, alert, no apparent distress, obese - EYES Eyes: PERRL/EOMI - HEAD, EARS, NOSE, MOUTH & THROAT HENMT: normocephalic/atraumatic, moist mucous membranes, normal ENT inspection - NECK Neck: non-tender, full range of motion, supple, normal inspection - RESPIRATORY Respiratory: chest non-tender, lungs clear, normal breath sounds, no respiratory distress, no accessory muscle use - CARDIOVASCULAR Cardiovascular: normal peripheral pulses, regular rate, rhythm, no edema - GASTROINTESTINAL (ABDOMEN) Abdominal Exam: normal bowel sounds, non tender, soft - LYMPHATIC Lymphatic: no adenopathy - MUSCULOSKELETAL Back Exam: normal inspection, no CVA tenderness, no vertebral tenderness Extremity: normal range of motion, non-tender, normal gait, normal inspection - SKIN Integumentary: normal color, normal turgor, warm/dry - NEUROLOGIC Neurologic: grossly normal, no motor/sensory deficits - PSYCHIATRIC Psych/Mental Status: normal mood/affect Progress - PLAN OF CARE/RESULTS Progress/Plan/Lab Results: Vital Signs - 8 hr 11/10/19 22:20 Temperature 98.9 F Pulse Rate 64 Respiratory Rate 16 Blood Pressure 138/71 O2 Sat by Pulse Oximetry 94 L Orders Category Date Time Status NEWS Score 2-4:Order NEWS Lactate Series NOW Care 11/10/19 22:28 Active Result Diagrams: 11/10/19 22:45 11/10/19 22:45 - EKG 1 Time of EKG reading by physician:: 01:04 EKG Read and Signed by:: Dimitri Jackson Rate: 63 Rhythm: atrial pace rhythm Barnard: left QRS: RBB ST Wave: non-specific ST changes Comments: no STEMI - XRAY 1 XRAY Study: Chest XRAY Interpretation: NAD,cardiomegaly - CONSULTS/PCP/HOSPITALIST Notification #1 *Consult/PCP/Hospitalist*: Dr. Vidal, hospitalist Time Discussed: 00:50 Consult Disposition: Admit Departure - Departure Date of Disposition Decision: 11/11/19 Time of Disposition Decision: 03:09 DIAGNOSIS: Hypoxemia, Hypokalemia, Tobacco abuse Nausea and vomiting Qualifiers: Vomiting type: unspecified Vomiting Intractability: non-intractable Qualified Code(s): R11.2 - Nausea with vomiting, unspecified COPD (chronic obstructive pulmonary disease) Qualifiers: COPD type: unspecified COPD Qualified Code(s): J44.9 - Chronic obstructive pulmonary disease, unspecified Disposition: ADMITTED INPATIENT 09 Certified Medical Emergency: Emergent Condition: Stable - Critical Care Note This patient required my direct & personal management of CC.: No Attestation - Physician/ DELMAR Attestation Patient care was provided by Advanced Practice Provider:: No The physician spent face to face time with patient:: Yes Advanced Practice Provider documentation review:: Supervising physician onsite and consulted in the evaluation and care of this patient. The physician did have a face to face encounter with the patient. This chart was documented by the indicated scribe, (Heidi Renee Scribe) and accurately reflects the services I performed and decisions made by me, Dimitri Jackson MD, as attested by the provider's signature.
[2019-11-11] MEDS ORDERED: KLOR-CON PO ONE (00:33)
[2019-11-11] MEDS ORDERED: ROCEPHIN 1 GM in NS 50 ML IV ONE (00:59)
[2019-11-11] MEDS ORDERED: LEVAQUIN 750 MG/D5W 750 MG/150 ML IVPB IV ONE (01:12)
[2019-11-11 01:14] LABS: INFLUENZA A NEGATIVE (NEGATIVE); INFLUENZA B NEGATIVE (NEGATIVE)
--- NOTE | 2019-11-11 01:24 | EKG Report ---
Test Performed on : 11/11/2019 01:03:06 AM Test Reason : pain Blood Pressure : / mmHG Vent. Rate : 063 BPM Atrial Rate : 059 BPM P-R Int : 288 ms QRS Dur : 164 ms QT Int : 458 ms P-R-T Axes : 000 -40 -25 degrees QTc Int : 468 ms Atrial-paced rhythm with prolonged AV conduction Left axis deviation Right bundle branch block T wave abnormality, consider inferolateral ischemia Abnormal ECG When compared with ECG of 03-NOV-2019 08:34, (Unconfirmed) T wave inversion more evident in Inferior leads T wave inversion now evident in Anterolateral leads Unconfirmed Result
[2019-11-11] MEDS ORDERED: SOLU-MEDROL IV ONE (01:39)
[2019-11-11] MEDS ORDERED: DUONEB (A & A) INH ONE (01:40)
[2019-11-11] MEDS ORDERED: NS 1,000 ML IV ONE (01:43)
[2019-11-11] MEDS ORDERED: POTASSIUM CHLORIDE 40 MEQ/SWI 40 MEQ/100 ML IVPB IV ONE (01:43)
[2019-11-11] MEDS ORDERED: ZOFRAN IV PRN (02:41)
[2019-11-11] MEDS: DUONEB (A & A) INH SCH ×6 (03:18→22:34)
[2019-11-11] MEDS: POTASSIUM CHLORIDE 20 MEQ/SWI 20 MEQ/100 ML IVPB IV SCH ×2 (04:50→08:12)
[2019-11-11 05:59] LABS: BASO# 0.02 X1000 (0.0-0.2); BASO% 0.3 % (0.0-0.8); EOS# 0.02 X1000 (0.0-0.7); EOS% 0.3 % (0.0-10.0); HEMOGLOBIN 12.4 g/dL (12.0-16.0); IMM GRAN# 0.03 X1000 (0.0-0.04); IMM GRAN% 0.5 % (0.0-0.5); LYMPH# 0.83 X1000 (1.2-3.4); LYMPH% 12.7 % (20.5-51.1); MCH 26.5 PG (27-31); MCV 85.5 FL (81-99); MONO# 0.12 X1000 (0.11-0.59); MONO% 1.8 % (1.7-9.3); MPV 8.8 FL (7.4-10.4); NEUT# 5.51 X1000 (1.4-6.5); NEUT% 84.4 % (42.2-75.2); PLT 260 X1000 (130-400); RBC 4.68 XMIL (4.2-5.4); RDW 14.1 % (11.5-14.5); WBC 6.53 X1000 (4.8-10.8)
[2019-11-11 06:07] LABS: CALCIUM 8.2 mg/dL (8.8-10.2); CREATININE 1.3 mg/dL (0.5-0.9); POTASSIUM 3.4 mmol/L (3.5-5.1)
[2019-11-11] MEDS ORDERED: SOLU-MEDROL IV SCH (08:00)
--- NOTE | 2019-11-11 08:21 | Diag Imaging Result Doc PS360 ---
EXAM: CHEST-PORTABLE HISTORY: cough TECHNIQUE: Single view of the chest was performed portably. COMPARISON: 11/09/2019 FINDINGS: Stable mild infiltrate right lung base. Stable cardiomegaly. Left lung is clear. Left transvenous pacemaker is noted. Right total shoulder arthroplasty again identified. Pulmonary vasculature not congested. No effusions are appreciated. Lung volumes are reduced. IMPRESSION: Probable unchanged right basilar infiltrate given decreased inspiratory result. Electronically signed by Pamella Jaime 11/11/2019 8:18 AM
[2019-11-11] MEDS ORDERED: NS + KCL 20 MEQ 1,000 ML IV SCH (10:30)
--- NOTE | 2019-11-11 10:36 | HISTORY AND PHYSICAL ---
PRIMARY CARE PROVIDER: None. CHIEF COMPLAINT: Short of breath, nausea and vomiting secondary to medications, weakness and feeling like something is pushing on her throat. HISTORY OF PRESENT ILLNESS: Ms. Hazel is a 74-year-old female discharged from our service on 11/07/2019, secondary to a right upper and middle lobe pneumonia, aspiration, acute hypoxemic respiratory failure, who comes back into the ED complaining of shortness of breath with O2 saturations reported by EMS to be in the 60s, nausea and vomiting secondary to medication she was sent home with, weakness and feeling like something is pushing up on her throat. She denies any wheezing. She denies any headache, cough, fever or chills, diarrhea, constipation, chest pain or heart palpitations. She was admitted for hypoxemia and probable aspiration pneumonia, and was initiated on Rocephin and Levaquin. PAST MEDICAL HISTORY: Diabetes mellitus, coronary artery disease status post AL, atrial fibrillation, history of gout, hypothyroidism. PAST SURGICAL HISTORY: Appendectomy, cholecystectomy, pacemaker placement, tonsillectomy, joint replacement. FAMILY HISTORY: Positive for hypertension and coronary artery disease. SOCIAL HISTORY: Denies alcohol, tobacco or illicit drug use. She is retired. Lives with family. REVIEW OF SYSTEMS: Completely negative, except for those mentioned in HPI. PHYSICAL EXAMINATION: VITAL SIGNS: Temperature is 97.9 degrees, heart rate 69, respirations 20, blood pressure 169/60, O2 is 93% on 2 L nasal cannula. GENERAL: Ms. Hazel is a 74-year-old female, who is lying in the bed in no acute distress. HEENT: Atraumatic, normocephalic. PERRL. NECK: Supple. Trachea midline. No JVD. CV: S1, S2 appreciated. No JVD. No lower extremity edema. Bilateral pedal pulses are palpable. PULMONARY: Bilateral breath sounds diminished throughout all lung rogers, but did not appreciate any rales, rhonchi or wheezes. GI: Soft, nontender, nondistended. Positive bowel sounds 4 quadrants. NEUROLOGIC: She is awake, she is alert. She is oriented, following commands. Did have some trouble remembering the events that brought her here, which she attributes secondary to being tired. SKIN: Warm, dry and intact. DIAGNOSTIC DATA: Chest x-ray showed unchanged right bibasilar infiltrate and decrease in inspiratory effort. Blood cultures pending. LABORATORY DATA: White count is 9, hemoglobin and hematocrit 12 and 39, platelet count is 303. Sodium 142, potassium 2.8 and repeat 3.4, BUN 27, creatinine 1.3. Blood glucose is 110, troponin 5845. No CK was checked. Plasma lactates are negative. Flu A, flu B negative. ASSESSMENT AND PLAN: 1. Questionable continued aspiration pneumonia/GERD. We will make the patient nothing by mouth. Consult speech therapy. The patient was just discharged fo presumed aspiration pneumonia. 2. Acute hypoxemic respiratory failure secondary to #1. 3. Hypokalemia, improved. 4. Acute kidney injury versus chronic kidney disease. Continue with intravenous hydration. 5. Diabetes mellitus. We will place her on sliding scale with pattern blood sugars. 6. Coronary artery disease status post myocardial infarction. 7. Atrial fibrillation. Patient has a permanent pacemaker. 8. History of gout. 9. Hypothyroidism. 10. Hital hernia w/ GERD stopped taking PPI, lies flat at night, speech therapy to see. Further recommendation to follow physician evaluation, laboratory and diagnostic data. Dictated by NIMISHA Fajardo for Shashank Padilla MD cc: Shashank Padilla MD [facility]
[2019-11-11] MEDS: SOLU-MEDROL IV SCH ×2 (11:15→18:57)
[2019-11-11] MEDS ORDERED: BLISTEX MEDICATED BERRY LIP BALM TOP PRN (11:18)
[2019-11-11] MEDS ORDERED: SODIUM CHLORIDE 0.9% INJ SCH (13:00)
[2019-11-11] MEDS ORDERED: NORCO-5 PO PRN (13:02)
[2019-11-11] MEDS: PROTONIX IV SCH (15:51)
[2019-11-11] MEDS: HUMALOG (PARKWAY) SUBQ SCH ×2 (17:11→21:35)
[2019-11-11] MEDS: COREG PO SCH (21:10)
[2019-11-11] MEDS: RESTORIL PO SCH (21:10)
--- NOTE | 2019-11-11 22:52 | HISTORY AND PHYSICAL ---
ADDENDUM: The patient seen and examined by myself. Full note dictated and discussed with nurse practitioner. Patient presented to the hospital with hypokalemia, potassium 2.8. Her x-ray actually looks worse than it did. She was just admitted to the hospital with what was felt to be aspiration pneumonia. Her x-ray continue to improve over the next few days. She was discharged home and actually came back to the ER with yet again improving chest x-ray. However, this time it is worse. Certainly, feels as though she is continuing to aspirate. We are going to attempt to get a swallowing study, place her on antibiotics and we will follow. cc: Shashank Padilla MD
[2019-11-12] MEDS ORDERED: ROCEPHIN 1 GM in NS 50 ML IV SCH (01:00)
[2019-11-12] MEDS: PROTONIX IV SCH (01:04)
[2019-11-12] MEDS: LEVAQUIN 500 MG in NS 100 ML IV SCH (01:05)
[2019-11-12] MEDS: SOLU-MEDROL IV SCH ×3 (02:20→18:26)
[2019-11-12] MEDS: DUONEB (A & A) INH SCH ×6 (02:44→23:57)
[2019-11-12 03:50] LABS: URINE SOURCE CLEAN CATCH
[2019-11-12 03:53] LABS: BILIRUBIN URINE NEGATIVE (NEGATIVE); BLOOD URINE NEGATIVE (NEGATIVE); COLOR YELLOW; GLUCOSE URINE NEGATIVE (NEGATIVE); KETONE URINE NEGATIVE (NEGATIVE); LEUKOCYTES URINE NEGATIVE (NEGATIVE); NITRITE URINE NEGATIVE (NEGATIVE); PROTEIN URINE TRACE mg/dL (NEGATIVE); SP GRAVITY URINE 1.021; TURBIDITY URINE CLEAR (CLEAR); UROBILINOGEN URINE NORMAL (NORMAL)
[2019-11-12 03:56] LABS: UR EPITHELIAL CELLS <10 /HPF (<10); URINE BACTERIA NEGATIVE /HPF; URINE RBC <10 /HPF (<10); URINE WBC <10 /HPF (<10)
[2019-11-12] MEDS ORDERED: CATAPRES PO PRN (04:30)
[2019-11-12] MEDS ORDERED: CATAPRES PO ONE (04:30)
[2019-11-12] MEDS: PROTONIX PO SCH (06:11)
[2019-11-12] MEDS: SYNTHROID PO SCH (06:11)
[2019-11-12] MEDS: HUMALOG (PARKWAY) SUBQ SCH ×5 (07:27→20:09)
[2019-11-12 07:42] LABS: SODIUM 141 mmol/L (136-145)
[2019-11-12 07:43] LABS: AGAP 14; BUN 32 mg/dL (8-22); CALCIUM 8.1 mg/dL (8.8-10.2); CHLORIDE 103 mmol/L (98-107); COSMO 291; CREATININE 0.9 mg/dL (0.5-0.9); GLUCOSE 158 mg/dL (70-104); MAGNESIUM 1.3 mg/dL (1.5-2.7); POTASSIUM 3.5 mmol/L (3.5-5.1); TCO2 24 mmol/L (25-35)
[2019-11-12] MEDS: ZYLOPRIM PO SCH (08:29)
[2019-11-12] MEDS: LASIX PO SCH (08:29)
[2019-11-12] MEDS: PLAVIX PO SCH (08:29)
[2019-11-12] MEDS: COREG PO SCH ×2 (08:30→20:02)
[2019-11-12] MEDS: HEMOCYTE PLUS CAPSULE PO SCH (08:30)
[2019-11-12] MEDS ORDERED: MAGNESIUM SULFATE 2 GM/S.W.I. 2 GM/50 ML IVPB IV ONE ×2 (10:43→17:12)
[2019-11-12] MEDS: APRESOLINE PO SCH ×2 (14:03→20:02)
[2019-11-12] MEDS: RESTORIL PO SCH (20:02)
--- NOTE | 2019-11-12 23:16 | PROGRESS NOTE ---
DATE: 11/12/2019 SUBJECTIVE: Patient notes that she is breathing a whole lot easier. Denies any fevers or chills. PHYSICAL EXAM: Vital signs: Temperature 98 degrees, pulse 65, respiratory rate 18, BP 208/83, sat 96% on 1 L, which is a marked improvement from her 80% sat initially upon ER visit. HEENT: Normocephalic. Neck: Supple. Cardiovascular: Regular rate. No murmurs. Chest: Clear. No crackles, no wheezing. Good air movement. Abdomen: Soft, nondistended, nontender. Extremities: Moves all extremities. ASSESSMENT: 1. Acute hypoxic respiratory failure. 2. Pneumonia, likely secondary to chronic reflux and aspiration. 3. Hypomagnesemia. 4. Hypokalemia, improved. 5. Hypertension. We are going to add hydralazine. 6. Acute kidney injury, improved. 7. Atrial fibrillation. 8. Known coronary artery disease. PLAN: We are going to continue antibiotics, oxygen, breathing treatments, and will follow. cc: Shashank Padilla MD
[2019-11-13] MEDS: LEVAQUIN 500 MG in NS 100 ML IV SCH (01:18)
[2019-11-13] MEDS: SOLU-MEDROL IV SCH ×3 (02:49→18:22)
[2019-11-13] MEDS: DUONEB (A & A) INH SCH ×5 (03:27→19:44)
[2019-11-13] MEDS: APRESOLINE PO SCH ×3 (05:54→21:22)
[2019-11-13] MEDS: PROTONIX PO SCH (06:07)
[2019-11-13] MEDS: SYNTHROID PO SCH (06:08)
[2019-11-13] MEDS: HUMALOG (PARKWAY) SUBQ SCH ×4 (06:56→21:30)
[2019-11-13 07:51] LABS: HEMATOCRIT 38.7 % (37.0-47.0); HEMOGLOBIN 12.5 g/dL (12.0-16.0); MCH 27.8 PG (27-31); MCHC 32.3 g/dL (33-37); MPV 8.8 FL (7.4-10.4); RBC 4.5 XMIL (4.2-5.4); RDW 14.2 % (11.5-14.5); WBC 7.83 X1000 (4.8-10.8)
[2019-11-13 07:55] LABS: AGAP 13; ALBUMIN 4.1 g/dL (3.5-5.0); ALKALINE PHOSPHATASE 42 U/L (32-104); BUN 29 mg/dL (8-22); CALCIUM 8.5 mg/dL (8.8-10.2); CHLORIDE 100 mmol/L (98-107); COSMO 282; CREATININE 0.8 mg/dL (0.5-0.9); ESTIMATED GFR > 60; GLUCOSE 142 mg/dL (70-104); GOT 15 U/L (10-30); GPT 10 U/L (10-36); MAGNESIUM 2.1 mg/dL (1.5-2.7); POTASSIUM 3.6 mmol/L (3.5-5.1); SODIUM 137 mmol/L (136-145); TCO2 24 mmol/L (25-35); TOTAL PROTEIN 6.2 g/dL (6.3-8.3)
[2019-11-13] MEDS: HEMOCYTE PLUS CAPSULE PO SCH (09:52)
[2019-11-13] MEDS: COREG PO SCH ×2 (09:52→21:22)
[2019-11-13] MEDS: LASIX PO SCH (09:52)
[2019-11-13] MEDS: ZYLOPRIM PO SCH (09:53)
[2019-11-13] MEDS: PLAVIX PO SCH (09:53)
--- NOTE | 2019-11-13 19:46 | PROGRESS NOTE ---
DATE: 11/13/2019 SUBJECTIVE: Patient notes that she is feeling a lot better. She actually would like to go home today. She has not really been out of bed. Denies any chest pain or palpitations currently. OBJECTIVE: Vital signs: Temperature 98, pulse 65, respiratory rate 20, BP elevated to 201/83, sat 96% on 1 L. HEENT: Normocephalic. Neck: Supple. Cardiovascular: Regular rate. Chest: Decreased but equal breath sounds. No crackles. No rhonchi. Much better air movement than admission. Abdomen: Soft, obese, nontender, nondistended. Extremities: Moves all extremities. No edema. Neurologic: No changes. ASSESSMENT: 1. Pneumonia, questionable aspiration. 2. Hypoxic respiratory failure, much improved. She is at 96% on 1 L. 3. Questionable aspiration. Speech evaluation is pending. 4. Diabetes. 5. Known coronary artery disease. 6. Atrial fibrillation. PLAN: We will continue patient in the hospital today. Her potassium has been replaced as has her magnesium. Continue antibiotics. We will attempt to ambulate, and we will see how she does. I expect that she can discharge tomorrow. cc: Shashank Padilla MD
[2019-11-13] MEDS: RESTORIL PO SCH (21:22)
[2019-11-14] MEDS: DUONEB (A & A) INH SCH ×4 (00:27→12:00)
[2019-11-14] MEDS: SOLU-MEDROL IV SCH ×2 (01:53→12:21)
[2019-11-14] MEDS ORDERED: LEVAQUIN 500 MG/D5W 500 MG/100 ML IVPB IV SCH (02:00)
[2019-11-14] MEDS: HUMALOG (PARKWAY) SUBQ SCH ×2 (06:04→12:18)
[2019-11-14] MEDS: APRESOLINE PO SCH ×2 (06:21→12:18)
[2019-11-14] MEDS: PROTONIX PO SCH (06:22)
[2019-11-14] MEDS: SYNTHROID PO SCH (06:22)
[2019-11-14] MEDS: PLAVIX PO SCH (08:06)
[2019-11-14] MEDS: ZYLOPRIM PO SCH (08:06)
[2019-11-14] MEDS: HEMOCYTE PLUS CAPSULE PO SCH (08:06)
[2019-11-14] MEDS: COREG PO SCH (08:06)
[2019-11-14] MEDS: LASIX PO SCH (08:06)
--- NOTE | 2019-11-14 08:20 | DISCHARGE SUMMARY ---
ADMISSION DATE: 11/11/2019 DISCHARGE DATE: PRIMARY CARE PROVIDER: None. PERTINENT PROCEDURES: Chest x-ray, probable unchanged right basilar infiltrate given decreased inspiratory results. CONSULTATIONS: Speech therapy, PT, OT. HOSPITAL COURSE: Briefly, Ms. Hazel is a 74-year-old, female who was just discharged from our service on 11/07/2019 secondary to a right upper and middle lobe pneumonia, aspiration, acute hypoxemic respiratory failure, who came back to the ED again complaining of shortness of breath with O2 saturations reported to be in the 60s, nausea and vomiting secondary to medications, weakness, and feeling like something was pushing up on her throat. She was admitted for hypoxemia and aspiration pneumonia. Initiated on Rocephin and Levaquin. She was followed by speech therapy. They recommend a pureed diet and then advanced her while she was in the hospital with aspiration and GERD precautions. She was initiated on reflux medicine. The patient and both were educated on reflux precautions. She has to sit upright for all p.o. intake, small bites, sips, slow eating pace, remain upright for at least 45 minutes after meals, avoid eating 2 hours before bed, and keep the head of her bed elevated at all times. They recommended that she try sleeping on a wedge pillow at home to elevate the torso and decrease possible reflux at night. She was also followed by PT. She has had a stable hospital course and will return home with home health. VITAL SIGNS: At the time of her discharge, temperature is 98.1 degrees, heart rate 63, respirations 16, blood pressure 186/84, O2 is 94%. DISCHARGE DIET: Mechanical soft with aspiration and GERD precautions. DISCHARGE MEDICATIONS: 1. Restoril 30 mg p.o. at bedtime. 2. Allopurinol 100 mg p.o. daily. 3. Coreg 25 mg p.o. b.i.d. 4. Metformin 500 mg p.o. b.i.d. 5. Roberts 5/325 one each p.o. b.i.d. p.r.n. 6. Integra capsule 10 mg p.o. daily. 7. Lasix 40 mg p.o. daily. 8. Levothyroxine 150 mcg p.o. daily. 9. Plavix 75 mg p.o. daily. 10. Levaquin 500 mg p.o. daily for 10 days. 11. Medrol Dosepak 4 mg p.o. as directed. 12. Protonix 40 mg p.o. daily. 13. Zofran 4 mg p.o. q.6 hours p.r.n. FOLLOWUP: Ms. Hazel is being discharged back home with home health. She will need to sleep on a wedge pillow for GERD and aspiration precautions. Again, she is to take small bites and sips, chew her food at a slower pace, and will need to sit up 45 minutes after meals and no eating 2 hours prior to bedtime. She will need to follow up with GI as well to manage her GERD and hiatal hernia, and follow up with a primary care provider to a list that has been provided to her. She can return to the ED or call 911 for any worsening of symptoms. Dictated by NIMISHA Fajardo for Shashank Padilla MD cc: Shashank Padilla MD
[2019-11-14] MEDS ORDERED: SOLU-MEDROL IV ONE (08:28)
[2019-11-14] MEDS ORDERED: LEVAQUIN PO SCH (09:00)
--- NOTE | 2019-11-14 10:35 | EKG Report ---
Test Performed on : 11/14/2019 09:54:55 AM Test Reason : Chest Pain Blood Pressure : / mmHG Vent. Rate : 062 BPM Atrial Rate : 062 BPM P-R Int : 170 ms QRS Dur : 176 ms QT Int : 456 ms P-R-T Axes : -04 -41 -18 degrees QTc Int : 462 ms Sinus rhythm. with premature atrial complexes. with aberrant conduction. Left axis deviation Right bundle branch block T wave abnormality, consider lateral ischemia Abnormal ECG When compared with ECG of 11-NOV-2019 01:03, (Unconfirmed) Sinus rhythm. has replaced Electronic atrial pacemaker Confirmed by Piyush Wilson MD ([id number]) on 11/17/2019 9:23:54 AM
[2019-11-14 12:31] VITALS: BP 147/81
--- NOTE | 2019-11-15 03:18 | DISCHARGE SUMMARY ---
ADMISSION DATE: 11/11/2019 DISCHARGE DATE: 11/14/2019 ADDENDUM: On discharge, patient is awake, alert. She is pleasant. She is in no distress. She has weaned off oxygen. We have had the head of her bed elevated while she has been in the hospital. She notes that she is feeling much better. Discussed with her the importance of doing this at home. We will discharge her home with antibiotics and a Medrol Dosepak. Given COVID-19 current issues, she will call the office next week and we will discuss how she is doing. We will make appointment if necessary. She was admitted with hypokalemia and hypomagnesemia. Both of which were easily replaced. cc: Shashank Padilla MD
== END 2019-11-14 15:37 | disposition home health service (06) | DRG 178 ==
LOC: P.MEDSURG 22:17 → P.ED 22:17 → OBSVTOIN 11-11 02:54 → SUATTDRO 11-11 02:54
PROVIDERS: ATTEND Family Medicine